=== PATIENT | male | born 1995 | race Caucasian/White ===

== ENCOUNTER 2018-02-02 11:27 | Inpatient (IN) | payer BC, OTHER ==
[~2018-02-02] VITALS: Ht 175.3 cm; Wt 68.3 kg
[~2018-02-02 11:27] MED LIST: ACET-1256; ATOM25CA; DLSYL; FLNIN; GFNSR600; MULT-506
[2018-02-02] MEDS ORDERED: SODIUM CHLORIDE 0.9% 1000ML 1,000 ML IV STA (11:55)
[2018-02-02 12:14] LABS: BASO % 0.2 %; BASO ABS # 0.04 K/uL (0-0.2); EOS % 0.7 %; EOS ABS # 0.13 K/uL (0-0.5); HEMATOCRIT 45.8 % (42-52); HEMOGLOBIN 17.2 g/dL (14.0-18.0); LYMPH % 17.7 %; MEAN CELL VOLUME 83.3 fL (80-100); MEAN CORPUSCULAR HEMOGLOBIN 31.3 pg (25-34); MEAN CORPUSCULAR HGB CONC 37.6 g/dl (32-36); MONO % 5.5 %; MONO ABS # 1.09 K/uL (0.11-0.59); NEUT % 75.4 %; NEUT ABS # 14.87 K/uL (1.4-6.5); PLATELET COUNT 334 K/uL (130-400); RED CELL DISTRIBUTION WIDTH CV 12.5 % (11.5-14.5); RED CELL DISTRIBUTION WIDTH SD 37.9 fL (36.4-46.3); WHITE BLOOD COUNT 19.73 K/uL (4.8-10.8)
[2018-02-02] MEDS ORDERED: NovoLIN-R INSULIN PER UNIT CHARGE IV STA (12:53)
[2018-02-02 12:54] LABS: ALBUMIN 3.9 gm/dl (3.4-5.0); CALCIUM 9.3 mg/dl (8.5-10.1); CREATININE 0.8 mg/dl (0.60-1.40); POTASSIUM 4.1 mmol/L (3.5-5.1); TOTAL PROTEIN 7.9 gm/dl (6.4-8.2)
[2018-02-02] MEDS ORDERED: CEFTRIAXONE SOD INJ 1 GM ADDVIAL IV STA (12:54)
--- NOTE | 2018-02-02 13:34 | DIAGNOSTIC IMAGING REPORT ---
CT SCAN OF THE ABDOMEN AND PELVIS WITHOUT CONTRAST CLINICAL HISTORY: Flank pain hematuria COMPARISON STUDY: No previous studies for comparison. TECHNIQUE: CT scan of the abdomen and pelvis was performed from the lung bases to the proximal femurs. Images are reviewed in the axial, sagittal, and coronal planes. IV contrast was not administered for this examination. A dose lowering technique was utilized adhering to the principles of ALARA. CT DOSE: 532.64 mGy.cm FINDINGS: Lower chest: The heart is normal in size and configuration, without pericardial effusion. The lung bases and pleural spaces are clear. Liver: The unenhanced liver is normal in size, contour, and attenuation. There is no intrahepatic biliary ductal dilatation. Gallbladder: Unremarkable. Spleen: Normal in size and attenuation. Pancreas: Unremarkable. Adrenal glands: Unremarkable. Kidneys: No renal, ureteral, or bladder calculi are visualized. Bowel: There are no transition zones indicate bowel obstruction. The appendix appears normal. There is no acute diverticulitis. Peritoneum: There is no intraperitoneal free air or abdominal ascites. Vasculature: The abdominal aorta is normal in course and caliber. Adenopathy: None. Pelvic viscera: There is mild bladder wall thickening. Correlation with urinalysis is recommended to exclude a cystitis. There is a somewhat prominent urachal remnant. Skeletal structures: No destructive osseous lesions are seen. IMPRESSION: 1. No evidence of bowel obstruction. No evidence of free air 2. No renal, ureteral, or bladder calculi identified 3. Normal appendix. No evidence of acute diverticulitis 4. Mild bladder wall thickening. Correlation with urinalysis is recommended to exclude a cystitis. Electronically signed by: Marco Ventura M.D. 02/02/2018 1:33 PM Dictated Date/Time: 02/02/2018 1:29 PM
--- NOTE | 2018-02-02 14:07 | EMERGENCY ROOM VISIT NOTE ---
History Report prepared by Daniela: Lilia Goode Under the Supervision of: Dr. Familia Tobar M.D. First contact with patient: 11:49 Chief Complaint: URINARY SYMPTOMS Stated Complaint: PEEING BLOOD SEEN DOCTOR WAS SENT HERE Nursing Triage Summary: Blood in urine on monday. States that has resolved but returned this AM, "and it wasnt nice". States he had clots in his urine. Pain in pelvis and penis. Took urine sample to [facility] in [place] and was told he had a large amount of glucose in urine. Had 3 oreos this AM. BSG in ED is 396. Pt states he does not feel like he completely empties his bladder when he voids. Pain and burning with urination. History of Present Illness The patient is a 22 year old male who presents to the Emergency Room with complaints of intermittent urinary symptoms starting this morning. The patient states that he had dysuria and hematuria 3 days ago, but it went away. He states that it was only a small bit of hematuria. He reports that when he woke up this morning he had dysuria and hematuria again. He states that this time it looked like he had passed a clot. He states that his father told him he had to go to the doctors. He reports that he went to the clinic and was sent in because of how high his sugars were. Per the referral, the patient had a large amount of sugar in his urine as well. The patient denies a fever, vomiting, anything discharged in his underwear, feeling more thirsty, urinating more frequently, weakness, weight loss, and a history of diabetes. He notes a family history of diabetes. Source of History: patient Onset: this morning Position: other (global) Quality: other (urinary) Timing: intermittent Associated Symptoms: No fevers, No vomiting, No weakness Note: The patient complains of dysuria and hematuria. The patient denies anything discharged in his underwear, feeling more thirsty, urinating more frequently, and weight loss. Review of Systems See HPI for pertinent positives & negatives. A total of 10 systems reviewed and were otherwise negative. Past Medical & Surgical Medical Problems: (1) Hematuria (2) Hyperglycemia Surgical Problems: (1) Hx of tonsillectomy Family History FH: heart disease FHx: diabetes mellitus Social History Smoking Status: Never Smoker Alcohol Use: none Marital Status: single Housing Status: lives with family Occupation Status: student Current/Historical Medications No Active Prescriptions or Reported Meds Allergies Coded Allergies: No Known Allergies (Unverified , 12/09/06) Physical Exam Vital Signs Date Time Temp Pulse Resp B/P (MAP) Pulse Ox O2 Delivery O2 Flow Rate FiO2 02/02/18 14:18 119 16 137/85 99 Room Air 02/02/18 13:05 103 16 136/92 100 Room Air 02/02/18 11:35 36.7 88 18 134/90 96 Room Air Physical Exam GENERAL: Patient is in no acute distress. HEENT: No acute trauma, normocephalic atraumatic, mucous membranes moist, no nasal congestion, no scleral icterus. NECK: No stridor, no adenopathy, no meningismus, trachea is midline. LUNGS: Clear to auscultation bilaterally, no wheeze, no rhonchi, breath sounds equal. HEART: Without murmurs gallops or rubs, regular rate and rhythm. ABDOMEN: Soft, nontender, bowel sounds positive, no hernias, no peritonitis. GROIN: Circumcised. No penile or scrotal erythema/edema. EXTREMITIES: No cyanosis or edema, full range of motion of all the joints without pain or difficulty, no signs for acute trauma. NEUROLOGIC: Oriented x 3, no acute motor or sensory deficits, no focal weakness. SKIN: No rash, no jaundice, no diaphoresis. Medical Decision & Procedures ER Provider Diagnostic Interpretation: Radiology results as stated below per my review and radiologist interpretation: CT SCAN OF THE ABDOMEN AND PELVIS WITHOUT CONTRAST CLINICAL HISTORY: Flank pain hematuria COMPARISON STUDY: No previous studies for comparison. TECHNIQUE: CT scan of the abdomen and pelvis was performed from the lung bases to the proximal femurs. Images are reviewed in the axial, sagittal, and coronal planes. IV contrast was not administered for this examination. A dose lowering technique was utilized adhering to the principles of ALARA. CT DOSE: 532.64 mGy.cm FINDINGS: Lower chest: The heart is normal in size and configuration, without pericardial effusion. The lung bases and pleural spaces are clear. Liver: The unenhanced liver is normal in size, contour, and attenuation. There is no intrahepatic biliary ductal dilatation. Gallbladder: Unremarkable. Spleen: Normal in size and attenuation. Pancreas: Unremarkable. Adrenal glands: Unremarkable. Kidneys: No renal, ureteral, or bladder calculi are visualized. Bowel: There are no transition zones indicate bowel obstruction. The appendix appears normal. There is no acute diverticulitis. Peritoneum: There is no intraperitoneal free air or abdominal ascites. Vasculature: The abdominal aorta is normal in course and caliber. Adenopathy: None. Pelvic viscera: There is mild bladder wall thickening. Correlation with urinalysis is recommended to exclude a cystitis. There is a somewhat prominent urachal remnant. Skeletal structures: No destructive osseous lesions are seen. IMPRESSION: 1. No evidence of bowel obstruction. No evidence of free air 2. No renal, ureteral, or bladder calculi identified 3. Normal appendix. No evidence of acute diverticulitis 4. Mild bladder wall thickening. Correlation with urinalysis is recommended to exclude a cystitis. Electronically signed by: Marco Ventura M.D. 02/02/2018 1:33 PM Dictated Date/Time: 02/02/2018 1:29 PM Laboratory Results 02/02/18 11:55 Red Blood Count 5.50, Mean Corpuscular Volume 83.3, Mean Corpuscular Hemoglobin 31.3, Mean Corpuscular Hemoglobin Concent 37.6, Mean Platelet Volume 10.0, Neutrophils (%) (Auto) 75.4, Lymphocytes (%) (Auto) 17.7, Monocytes (%) (Auto) 5.5, Eosinophils (%) (Auto) 0.7, Basophils (%) (Auto) 0.2, Neutrophils # (Auto) 14.87, Lymphocytes # (Auto) 3.50, Monocytes # (Auto) 1.09, Eosinophils # (Auto) 0.13, Basophils # (Auto) 0.04 02/02/18 11:55 Test 02/02/18 11:55 02/02/18 12:05 02/02/18 14:19 White Blood Count 19.73 K/uL (4.8-10.8) Red Blood Count 5.50 M/uL (4.7-6.1) Hemoglobin 17.2 g/dL (14.0-18.0) Hematocrit 45.8 % (42-52) Mean Corpuscular Volume 83.3 fL (80-100) Mean Corpuscular Hemoglobin 31.3 pg (25-34) Mean Corpuscular Hemoglobin Concent 37.6 g/dl (32-36) Platelet Count 334 K/uL (130-400) Mean Platelet Volume 10.0 fL (7.4-10.4) Neutrophils (%) (Auto) 75.4 % Lymphocytes (%) (Auto) 17.7 % Monocytes (%) (Auto) 5.5 % Eosinophils (%) (Auto) 0.7 % Basophils (%) (Auto) 0.2 % Neutrophils # (Auto) 14.87 K/uL (1.4-6.5) Lymphocytes # (Auto) 3.50 K/uL (1.2-3.4) Monocytes # (Auto) 1.09 K/uL (0.11-0.59) Eosinophils # (Auto) 0.13 K/uL (0-0.5) Basophils # (Auto) 0.04 K/uL (0-0.2) RDW Standard Deviation 37.9 fL (36.4-46.3) RDW Coefficient of Variation 12.5 % (11.5-14.5) Immature Granulocyte % (Auto) 0.5 % Immature Granulocyte # (Auto) 0.10 K/uL (0.00-0.02) Anion Gap 8.0 mmol/L (3-11) Est Creatinine Clear Calc Drug Dose 142.3 ml/min Estimated GFR () 149.0 Estimated GFR (Non- 128.6 BUN/Creatinine Ratio 10.4 (10-20) Calcium Level 9.3 mg/dl (8.5-10.1) Magnesium Level 1.8 mg/dl (1.8-2.4) Total Bilirubin 0.6 mg/dl (0.2-1) Aspartate Amino Transf (AST/SGOT) 14 U/L (15-37) Alanine Aminotransferase (ALT/SGPT) 30 U/L (12-78) Alkaline Phosphatase 107 U/L (45-117) Total Protein 7.9 gm/dl (6.4-8.2) Albumin 3.9 gm/dl (3.4-5.0) Globulin 4.0 gm/dl (2.5-4.0) Albumin/Globulin Ratio 1.0 (0.9-2) Beta-Hydroxybutyric Acid 6.98 mg/dL (0.2-2.81) Thyroid Stimulating Hormone (TSH) 3.080 uIu/ml (0.300-4.500) Urine Color YELLOW Urine Appearance CLOUDY (CLEAR) Urine pH 6.5 (4.5-7.5) Urine Specific [place] 1.041 (1.000-1.030) Urine Protein 2+ (NEG) Urine Glucose (UA) 3+ (NEG) Urine Ketones TRACE (NEG) Urine Occult Blood 3+ (NEG) Urine Nitrite NEG (NEG) Urine Bilirubin NEG (NEG) Urine Urobilinogen NEG (NEG) Urine Leukocyte Esterase SMALL (NEG) Urine WBC (Auto) >30 /hpf (0-5) Urine RBC (Auto) >30 /hpf (0-4) Urine Hyaline Casts (Auto) 0 /lpf (0-5) Urine Epithelial Cells (Auto) 0-5 /lpf (0-5) Urine Bacteria (Auto) NEG (NEG) Urine Yeast (Auto) (NONE PRSENT) Bedside Glucose 231 mg/dl (70-99) Laboratory results reviewed by me. Medications Administered Medications (Trade) Dose Ordered Sig/[place] Route Start Time Stop Time Status Last Admin Dose Admin Sodium Chloride 1,000 ml @ 999 mls/hr Q1H1M STAT IV 02/02/18 11:55 02/02/18 12:55 DC 02/02/18 12:12 999 MLS/HR Insulin Human Regular (novoLIN-R U-100 PER UNIT) 10 units NOW STAT IV 02/02/18 12:53 02/02/18 12:54 DC 02/02/18 13:38 10 UNITS Ceftriaxone Sodium (Rocephin Inj) 1 gm NOW STAT IV 02/02/18 12:54 02/02/18 12:55 DC 02/02/18 13:40 1 GM ED Course 1150: The patient was evaluated in room C5. A complete history and physical exam was performed. 1155: Ordered NSS 1000 ml @ 999 mls/hr IV. 1253: Ordered Insulin Human Regular 10 units IV. 1254: Ordered Ceftriaxone Sodium 1 gm IV. 1344: I reevaluated the patient and he is doing well. 1351: I discussed the patient's case with Dr. Rashida VILLAR Hospitalist. 1457: Ordered NSS 500 ml @ 999 mls/hr IV. 1517: I spoke to Dr. Estela ONOFRE Hospitalist. The patient will be evaluated for further management. Medical Decision Differential diagnoses include new onset diabetes, dehydration, electrolyte imbalance, anemia, renal failure, UTI, renal or bladder mass. There is a significant leukocytosis at 19,000, this could be consistent with infection. No concerning anemia. Renal panel testing shows a sugar of almost 400. No kidney failure. No hepatitis. The patient appears to be in a euthyroid state. Urinalysis does suggest infection. Urine culture is pending. Abdominal and pelvis CT shows some bladder inflammation consistent with infection, no evidence for ureteral obstruction or for renal stone. The patient received IV saline, he was given IV ceftriaxone. He received IV insulin. His blood sugar is improved. Given the new onset diabetes, given the high sugar, given the UTI and the leukocytosis, a hospital stay was felt warranted. I spoke to the patient and case management. The on-call hospitalist was consulted. Medication Reconcilliation Current Medication List: was personally reviewed by me Blood Pressure Screening Patient's blood pressure: Elevated blood pressure Blood pressure disposition: Referred to PCP Will be further monitored by the hospitalist. Consults Time Called: 1350 Consulting Physician: Dr. Rashida VILLAR Hospitalist Returned Call: 1351 I discussed the patient's case with Dr. Rashida VILLAR [facility]. Additional Consults: Time Called: 1512 Consulted Physician: Dr. Estela ONOFRE Hospitalist Returned Call: 1517 Additional Comments: I spoke to Dr. Estela ONOFRE Hospitalir[facility]. The patient will be evaluated for further management. Impression Primary Impression: Urinary tract infection Additional Impressions: Hyperglycemia Dehydration Leukocytosis Scribe Attestation The scribe's documentation has been prepared under my direction and personally reviewed by me in its entirety. I confirm that the note above accurately reflects all work, treatment, procedures, and medical decision making performed by me. Departure Information Dispostion Being Evaluated By Hospitalist Prescriptions No Active Prescriptions or Reported Meds Referrals Regino Sepulveda M.D. (PCP) Patient Instructions My [facility] Problem Qualifiers
[2018-02-02] MEDS ORDERED: SODIUM CHLORIDE 0.9% 500ML 500 ML IV STA (14:57)
[2018-02-02] MEDS ORDERED: INSULIN GLARGINE SOLOSTAR 100 UNITS/ML 3 ML PEN SC ONE (15:05)
[2018-02-02] MEDS ORDERED: MAGNESIUM HYDROXIDE SUSP 30 ML UDC PO PRN (15:15)
[2018-02-02] MEDS ORDERED: ONDANSETRON INJ 2 MG/ML 2 ML VIAL IV PRN (15:15)
[2018-02-02] MEDS ORDERED: ALUMINUM/MAGNESIUM/SIMETH (MAALOX MAX) 30 ML UDC PO PRN (15:15)
[2018-02-02] MEDS ORDERED: SODIUM CHLORIDE 0.9% 1000ML 1,000 ML IV ONE (15:15)
[2018-02-02] MEDS ORDERED: POLYETHYLENE (MIRALAX) 17 GM PACK PO PRN (15:15)
[2018-02-02] MEDS ORDERED: ACETAMINOPHEN 325 MG TAB PO PRN (15:15)
--- NOTE | 2018-02-02 15:22 | History and Physical ---
History & Physical Date & Time of Service: February 02, 2018 at 15:13 Chief Complaint: Peeing Blood Seen Doctor Was Sent Here Primary Care Physician: Marisa Villafuerte D.O. History of Present Illness Source: patient, family, clinic records, hospital records Patient is a pleasant 22 y/o male, with no past medical history, who presented to the ED because of hematuria. Hematuria started a few days ago, but then resolved. This AM, he passed a large clot and had dysuria. He was seen outpatient and told to come to ED because of UTI and elevated sugars. In ED, patient's sugars were 396- no history of DM. Both mother and father have DM. Per father, patient has a very bad diet and eats mostly sugary things. Patient denies any fever, chills, sweats, lightheadedness, dizziness, vision changes, CP , palpitations, edema, SOB, wheezing, cough, abdominal pain, nausea, vomiting, diarrhea, melena, numbness/tingling, weakness, muscle/joint pain, anxiety/ depression, active bleeding, or new skin discoloration/changes. Past Medical/Surgical History Surgical Problems: (1) Hx of tonsillectomy Family History FH: heart disease FHx: diabetes mellitus Social History Smoking Status: Never Smoker Marital Status: single Housing status: lives with family Occupational Status: student Allergies Coded Allergies: No Known Allergies (Unverified Allergy, Mild, 12/09/06) Uncoded Allergies: NKA (Allergy, Unknown, 11/02/03) Home Medications No Active Prescriptions or Reported Meds Physical Exam Vital Signs Date Time Temp Pulse Resp B/P (MAP) Pulse Ox O2 Delivery O2 Flow Rate FiO2 02/02/18 14:18 119 16 137/85 99 Room Air 02/02/18 13:05 103 16 136/92 100 Room Air 02/02/18 11:35 36.7 88 18 134/90 96 Room Air General Appearance: no apparent distress Head: normocephalic, atraumatic Eyes: normal inspection, PERRL ENT: hearing grossly normal Neck: supple Respiratory/Chest: lungs clear, normal breath sounds, no respiratory distress, no accessory muscle use Cardiovascular: regular rate, rhythm Abdomen/GI: normal bowel sounds, non tender, soft Extremities/Musculoskelatal: no calf tenderness, no pedal edema Neurologic/Psych: alert, normal mood/affect, normal reflexes, oriented x 3 Skin: normal color, warm/dry, no rash Diagnostics Laboratory Results Results Past 24 Hours Test 02/02/18 11:42 02/02/18 11:55 02/02/18 12:05 02/02/18 14:19 Range/Units Bedside Glucose 396 231 70-99 mg/dl White Blood Count 19.73 4.8-10.8 K/uL Red Blood Count 5.50 4.7-6.1 M/uL Hemoglobin 17.2 14.0-18.0 g/dL Hematocrit 45.8 42-52 % Mean Corpuscular Volume 83.3 80-100 fL Mean Corpuscular Hemoglobin 31.3 25-34 pg Mean Corpuscular Hemoglobin Concent 37.6 32-36 g/dl Platelet Count 334 130-400 K/uL Mean Platelet Volume 10.0 7.4-10.4 fL Neutrophils (%) (Auto) 75.4 % Lymphocytes (%) (Auto) 17.7 % Monocytes (%) (Auto) 5.5 % Eosinophils (%) (Auto) 0.7 % Basophils (%) (Auto) 0.2 % Neutrophils # (Auto) 14.87 1.4-6.5 K/uL Lymphocytes # (Auto) 3.50 1.2-3.4 K/uL Monocytes # (Auto) 1.09 0.11-0.59 K/uL Eosinophils # (Auto) 0.13 0-0.5 K/uL Basophils # (Auto) 0.04 0-0.2 K/uL RDW Standard Deviation 37.9 36.4-46.3 fL RDW Coefficient of Variation 12.5 11.5-14.5 % Immature Granulocyte % (Auto) 0.5 % Immature Granulocyte # (Auto) 0.10 0.00-0.02 K/uL Sodium Level 133 136-145 mmol/L Potassium Level 4.1 3.5-5.1 mmol/L Chloride Level 99 98-107 mmol/L Carbon Dioxide Level 26 21-32 mmol/L Anion Gap 8.0 3-11 mmol/L Blood Urea Nitrogen 8 7-18 mg/dl Creatinine 0.80 0.60-1.40 mg/dl Est Creatinine Clear Calc Drug Dose 142.3 ml/min Estimated GFR () 149.0 Estimated GFR (Non- 128.6 BUN/Creatinine Ratio 10.4 10-20 Random Glucose 374 70-99 mg/dl Calcium Level 9.3 8.5-10.1 mg/dl Magnesium Level 1.8 1.8-2.4 mg/dl Total Bilirubin 0.6 0.2-1 mg/dl Aspartate Amino Transf (AST/SGOT) 14 15-37 U/L Alanine Aminotransferase (ALT/SGPT) 30 12-78 U/L Alkaline Phosphatase 107 45-117 U/L Total Protein 7.9 6.4-8.2 gm/dl Albumin 3.9 3.4-5.0 gm/dl Globulin 4.0 2.5-4.0 gm/dl Albumin/Globulin Ratio 1.0 0.9-2 Beta-Hydroxybutyric Acid 6.98 0.2-2.81 mg/dL Thyroid Stimulating Hormone (TSH) 3.080 0.300-4.500 uIu/ml Urine Color YELLOW Urine Appearance CLOUDY CLEAR Urine pH 6.5 4.5-7.5 Urine Specific [place] 1.041 1.000-1.030 Urine Protein 2+ NEG Urine Glucose (UA) 3+ NEG Urine Ketones TRACE NEG Urine Occult Blood 3+ NEG Urine Nitrite NEG NEG Urine Bilirubin NEG NEG Urine Urobilinogen NEG NEG Urine Leukocyte Esterase SMALL NEG Urine WBC (Auto) >30 0-5 /hpf Urine RBC (Auto) >30 0-4 /hpf Urine Hyaline Casts (Auto) 0 0-5 /lpf Urine Epithelial Cells (Auto) 0-5 0-5 /lpf Urine Bacteria (Auto) NEG NEG Urine Yeast (Auto) NONE PRSENT Microbiology Results 02/02/18 Urine Culture, Received Pending Diagnostic Radiology CT SCAN OF THE ABDOMEN AND PELVIS WITHOUT CONTRAST CLINICAL HISTORY: Flank pain hematuria COMPARISON STUDY: No previous studies for comparison. TECHNIQUE: CT scan of the abdomen and pelvis was performed from the lung bases to the proximal femurs. Images are reviewed in the axial, sagittal, and coronal planes. IV contrast was not administered for this examination. A dose lowering technique was utilized adhering to the principles of ALARA. CT DOSE: 532.64 mGy.cm FINDINGS: Lower chest: The heart is normal in size and configuration, without pericardial effusion. The lung bases and pleural spaces are clear. Liver: The unenhanced liver is normal in size, contour, and attenuation. There is no intrahepatic biliary ductal dilatation. Gallbladder: Unremarkable. Spleen: Normal in size and attenuation. Pancreas: Unremarkable. Adrenal glands: Unremarkable. Kidneys: No renal, ureteral, or bladder calculi are visualized. Bowel: There are no transition zones indicate bowel obstruction. The appendix appears normal. There is no acute diverticulitis. Peritoneum: There is no intraperitoneal free air or abdominal ascites. Vasculature: The abdominal aorta is normal in course and caliber. Adenopathy: None. Pelvic viscera: There is mild bladder wall thickening. Correlation with urinalysis is recommended to exclude a cystitis. There is a somewhat prominent urachal remnant. Skeletal structures: No destructive osseous lesions are seen. IMPRESSION: 1. No evidence of bowel obstruction. No evidence of free air 2. No renal, ureteral, or bladder calculi identified 3. Normal appendix. No evidence of acute diverticulitis 4. Mild bladder wall thickening. Correlation with urinalysis is recommended to exclude a cystitis. Electronically signed by: Marco Ventura M.D. 02/02/2018 1:33 PM Dictated Date/Time: 02/02/2018 1:29 PM The status of this report is Signed. Draft = Not yet reviewed or approved by Radiologist. Signed = Reviewed and approved by Radiologist Impression Assessment and Plan Patient is a pleasant 22 y/o male, with no past medical history, who presented to the ED because of hematuria. UTI POA: IV Rocephin pending UCx Hyperglycemia: - Given 10 u Novolin R with improvement in sugars from 396 to 231 - Lantus 6 u SQ now, then 6 u BID - BSG ACHS and ISS - Check hgbA1c - paraeducator consulted Leukocytosis, secondary to UTI/hyperglycemia- does not appear septic: Follow CBC and treatment as above DVT prophylaxis: TEDs/SCDs, ambulation Code status: LEVEL I, FULL Dispo: From home, lives w/ parents- no discharge needs anticipated Resuscitation Status LEVEL I, FULL VTE Prophylaxis Will order VTE Prophylaxis: Yes
[2018-02-02 16:16] VITALS: BMI 22.2
[2018-02-02 16:25] VITALS: BP 144/93; PULSE 110; TEMP 36.8; O2SAT 98; Ht 175.3 cm; Wt 68.3 kg
[2018-02-02] MEDS ORDERED: SODIUM CHLORIDE 0.9% 1000ML 1,000 ML IV SCH (16:43)
[2018-02-02] MEDS ORDERED: NURSING VERBAL MED ORDER ONE (17:00)
[2018-02-02] MEDS: INSULIN ASPART 100 UNITS/ML 3 ML PEN SC SCH ×2 (17:18→20:56)
--- NOTE | 2018-02-02 19:11 | DIAGNOSTIC IMAGING REPORT ---
RENAL ULTRASOUND HISTORY: hematuria COMPARISON: Abdomen and pelvis CT 02/02/2018. FINDINGS: Right kidney: 13 cm. No hydronephrosis. Normal corticomedullary differentiation and cortical thickness. Left kidney: 12.6 cm. No hydronephrosis. Normal corticomedullary differentiation and cortical thickness. Bladder: Moderate irregular bladder wall thickening. The left side the bladder wall appears to demonstrate nodular thickening. There is also debris within the bladder lumen. IMPRESSION: 1. Normal kidneys. 2. Moderate irregular bladder wall thickening. Some of this could related to underdistention. Correlation with urinalysis is suggested to evaluate for a cystitis. There may also be a nodular component to the thickening along the left side the bladder wall. Therefore, consider follow-up ultrasound or cystoscopy to ensure resolution and exclude the less likely possibility of a bladder wall lesion. Electronically signed by: Amilcar Ballard M.D. 02/02/2018 7:10 PM Dictated Date/Time: 02/02/2018 7:05 PM
[2018-02-02] MEDS ORDERED: PNEUMOCOCCAL POLYSACCHARIDES 25 MCG/0.5 ML VIAL/SYR IM. ONE (20:00)
[2018-02-02] MEDS ORDERED: PNEUMOCOCCAL ADMINISTRATION CHARGE ONE (20:00)
[2018-02-02] MEDS: INSULIN GLARGINE SOLOSTAR 100 UNITS/ML 3 ML PEN SC SCH (20:57)
[2018-02-02 23:27] VITALS: BP 144/98; PULSE 100; TEMP 36.6; O2SAT 98
[2018-02-03 06:27] LABS: HEMATOCRIT 44.6 % (42-52); HEMOGLOBIN 16.3 g/dL (14.0-18.0); MEAN CELL VOLUME 84.8 fL (80-100); MEAN CORPUSCULAR HGB CONC 36.5 g/dl (32-36); MEAN PLATELET VOLUME 9.8 fL (7.4-10.4); PLATELET COUNT 325 K/uL (130-400); RED CELL DISTRIBUTION WIDTH CV 12.7 % (11.5-14.5); WHITE BLOOD COUNT 11.18 K/uL (4.8-10.8)
[2018-02-03 06:32] LABS: HEMOGLOBIN A1C 11.3 % (4.5-5.6)
[2018-02-03 06:44] LABS: BLOOD UREA NITROGEN 6 mg/dl (7-18); CALCIUM 8.8 mg/dl (8.5-10.1); CARBON DIOXIDE 26 mmol/L (21-32); CREATININE 0.68 mg/dl (0.60-1.40); GLUCOSE 286 mg/dl (70-99); POTASSIUM 4.3 mmol/L (3.5-5.1); SODIUM 133 mmol/L (136-145)
[2018-02-03 07:20] VITALS: BP 133/93; PULSE 99; TEMP 36.7; O2SAT 99
[2018-02-03] MEDS: INSULIN ASPART 100 UNITS/ML 3 ML PEN SC SCH ×4 (08:18→21:47)
[2018-02-03] MEDS: INSULIN GLARGINE SOLOSTAR 100 UNITS/ML 3 ML PEN SC SCH ×2 (08:18→21:48)
[2018-02-03] MEDS ORDERED: LANTUS PER UNIT CHARGE SQ SCH (09:15)
[2018-02-03] MEDS ORDERED: CEFTRIAXONE SOD INJ 1 GM in DEXTROSE 5% ADD-VANTAGE 50ML 50 ML IV SCH (14:00)
[2018-02-03 14:40] VITALS: BP 121/84; PULSE 75; TEMP 36.7; O2SAT 97
--- NOTE | 2018-02-03 16:01 | Progress Note ---
Subjective Date of Service: February 03, 2018. Subjective Pt evaluation today including: conversation w/ patient, conversation w/ family , physical exam, chart review, lab review, review of studies, conversation w/ cloud consultant, review of inpatient medication list Sitting up in chair, up and walk, no more hematuria, no fever chills, denies any other complaints Problem List Medical Problems: (1) Dehydration Status: Acute (2) Leukocytosis Status: Acute (3) Urinary tract infection Status: Acute Review of Systems Constitutional: + weakness, + fatigue, No fever, No chills, No sweats, No weight loss, No problem reported Eyes: No worsening of vision, No eye pain, No redness, No discharge, No diplopia ENT: No hearing loss, No unusual epistaxis, No nasal symptoms, No sore throat, No tinnitus, No dental problems, No trouble swallowing Respiratory: No cough, No sputum, No wheezing, No shortness of breath, No dyspnea on exertion, No dyspnea at rest, No hemoptysis Cardiac: No chest pain, No orthopnea, No PND, No edema, No claudication, No palpitations Abdomen: No pain, No nausea, No vomiting, No diarrhea, No constipation Musculoskeletal: No joint pain, No muscle pain, No swelling, No calf pain Male : No dysuria, No urinary frequency, No incontinence, No nocturia more than once/night, No slowing stream, No hematuria Neurologic: No memory loss, No paralysis, No weakness, No numbness/tingling, No vertigo, No balance problems Psychiatric: No depression symptoms, No anhedonism, No anxiety, No insomnia, No substance abuse Heme: No abnormal bleeding/bruising, No clotting problems, No swollen lymph nodes, No night sweats Endo: No fatigue, No excessive thirst, No excessive urination Skin: No rash, No itch, No new/changing skin lesions, No color change, No bleeding Objective Vital Signs Date Time Temp Pulse Resp B/P (MAP) Pulse Ox O2 Delivery O2 Flow Rate FiO2 02/03/18 14:40 36.7 75 18 121/84 (96) 97 Room Air 02/03/18 08:00 Room Air 02/03/18 07:20 36.7 99 18 133/93 (106) 99 Room Air 02/03/18 00:00 Room Air 02/02/18 23:27 36.6 100 16 144/98 (113) 98 Room Air 02/02/18 20:00 Room Air 02/02/18 16:25 36.8 110 18 144/93 98 Room Air 02/02/18 16:11 116 18 128/95 100 Physical Exam General Appearance: WD/WN, no apparent distress Eyes: normal inspection, PERRL, EOMI, sclerae normal ENT: normal ENT inspection, hearing grossly normal, pharynx normal Neck: supple, no adenopathy, thyroid normal, no JVD, no carotid bruits, trachea midline Respiratory/Chest: chest non-tender, normal breath sounds, no respiratory distress, no accessory muscle use, + decreased breath sounds Cardiovascular: regular rate, rhythm, no edema, no gallop, no JVD, no murmur Abdomen: normal bowel sounds, non tender, soft, no organomegaly, no pulsatile mass Extremities: normal range of motion, non-tender, normal inspection, no pedal edema, no calf tenderness, normal capillary refill, pelvis stable Neurologic/Psychiatric: 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 as tested, no motor/sensory deficits, alert, normal mood/affect, oriented x 3 Skin: normal color, warm/dry, no rash Lymphatic: no adenopathy Laboratory Results Last 24 Hours Test 02/02/18 16:34 02/02/18 17:08 02/02/18 20:20 02/03/18 01:36 Bedside Glucose 230 mg/dl 227 mg/dl 224 mg/dl Erythrocyte Sedimentation Rate 16 mm/hr C-Reactive Protein 2.16 mg/dl Procalcitonin < 0.05 ng/ml Test 02/03/18 06:08 02/03/18 07:27 02/03/18 11:45 White Blood Count 11.18 K/uL Red Blood Count 5.26 M/uL Hemoglobin 16.3 g/dL Hematocrit 44.6 % Mean Corpuscular Volume 84.8 fL Mean Corpuscular Hemoglobin 31.0 pg Mean Corpuscular Hemoglobin Concent 36.5 g/dl RDW Standard Deviation 39.0 fL RDW Coefficient of Variation 12.7 % Platelet Count 325 K/uL Mean Platelet Volume 9.8 fL Sodium Level 133 mmol/L Potassium Level 4.3 mmol/L Chloride Level 103 mmol/L Carbon Dioxide Level 26 mmol/L Anion Gap 4.0 mmol/L Blood Urea Nitrogen 6 mg/dl Creatinine 0.68 mg/dl Est Creatinine Clear Calc Drug Dose 167.4 ml/min Estimated GFR () > 150.0 Estimated GFR (Non- 137.5 BUN/Creatinine Ratio 9.0 Random Glucose 286 mg/dl Calcium Level 8.8 mg/dl Bedside Glucose 275 mg/dl 310 mg/dl Assessment and Plan 22 y/o male with admitted on February 02, 2018 because of hematuria and possible mild sepsis, Hematuria with UTI POA possible mild sepsis: Hematuria resolved, Renal and bladder ultrasound results in below, 1. Normal kidneys. 2. Moderate irregular bladder wall thickening. Some of this could related to underdistention. Correlation with urinalysis is suggested to evaluate for a cystitis. There may also be a nodular component to the thickening along the left side the bladder wall. Therefore, consider follow-up ultrasound or cystoscopy to ensure resolution and exclude the less likely possibility of a bladder wall lesion. 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 Quan PCP Continued [facility] stay due to: multiple IV medications needed Discharge planning: home
[2018-02-03] MEDS ORDERED: INSULIN GLARGINE SOLOSTAR 100 UNITS/ML 3 ML PEN SC SCH (21:00)
[2018-02-03 23:34] VITALS: BP 127/78; PULSE 89; TEMP 36.5; O2SAT 96
[2018-02-04 06:38] LABS: HEMATOCRIT 44.4 % (42-52); HEMOGLOBIN 16.6 g/dL (14.0-18.0); MEAN CELL VOLUME 84.1 fL (80-100); MEAN CORPUSCULAR HEMOGLOBIN 31.4 pg (25-34); MEAN CORPUSCULAR HGB CONC 37.4 g/dl (32-36); MEAN PLATELET VOLUME 9.9 fL (7.4-10.4); PLATELET COUNT 343 K/uL (130-400); RED CELL DISTRIBUTION WIDTH CV 12.7 % (11.5-14.5); RED CELL DISTRIBUTION WIDTH SD 38.4 fL (36.4-46.3); WHITE BLOOD COUNT 12.59 K/uL (4.8-10.8)
[2018-02-04 07:02] VITALS: BP 129/76; PULSE 93; TEMP 36.6; O2SAT 98
[2018-02-04 07:06] LABS: BLOOD UREA NITROGEN 10 mg/dl (7-18); CALCIUM 9.4 mg/dl (8.5-10.1); CARBON DIOXIDE 24 mmol/L (21-32); CREATININE 0.63 mg/dl (0.60-1.40); GLUCOSE 278 mg/dl (70-99); POTASSIUM 4.1 mmol/L (3.5-5.1); SODIUM 136 mmol/L (136-145)
[2018-02-04 08:00] VITALS: O2SAT 98
[2018-02-04] MEDS: INSULIN GLARGINE SOLOSTAR 100 UNITS/ML 3 ML PEN SC SCH (08:18)
[2018-02-04] MEDS: INSULIN ASPART 100 UNITS/ML 3 ML PEN SC SCH (08:18)
[2018-02-04] MEDS ORDERED: INSDGIPEN SC (09:08)
[2018-02-04] MEDS ORDERED: KFL500 PO (09:08)
--- NOTE | 2018-02-04 09:08 | Discharge Instructions ---
Discharge Instructions Date of Service February 04, 2018. Admission Reason for Admission: Hematuria; Hyperglycemia Discharge Discharge Diagnosis / Problem: you have Hematuria with UTI Discharge Goals Goal(s): Decrease discomfort, Improve function, Increase independence, Improve disease control, Improve nutritional status, Learn about illness, Diagnostic testing, Therapeutic intervention, Screening, Prevent Disease Progression, Specific goals Activity Recommendations Activity Limitations: resume your previous activity . 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 Noy james, referral to golf player assistant if need I am giving you Lantus FlexPen 12 unit bid to home, I am also giving you NOvolog for sliding scale: use as instructed per sliding scale BG<150 no coverage, BG 151 to 180: 2 unit BG 181 to 200: 4 unit BG 201 to 220: 5 unit BG 221 to 240: 6 unit BG 241 to 260: 7 unit BG 261 to 280: 8 unit BG 281 to 300: 9 unit BG 301 to 320: 10 unit BG 321 to 340: 12 unit BG 341 to 360: 14 unit BG 361 to 380: 16 unit BG >380: 18 unit, and call PCP - you need to follow up with your primary care physician jacob - take medication as instructed, never overdose or any misuse, or take with alcohol, because misuse of medicine may cause organ damage or , call me , or your primary care physician if have questions of discharge medicaitons. - call your primary care physician, or go to local emergency room if has any fever/chill, chest pain, shortness of breathing, nausea/vomiting/abdominal pain , facial droop/slurry speech/local weakness, or if has any questions. - fall precaution - diet as instructed - you need to follow up with your subspecialist, such as Dr. Whitten, you will get a phone call from their service for the appointment, but, you need to call if no body call you in 2-3 days. - you should understand that it is important to follow up the above instruction , and "not following the above instruction" may cause delayed or missed care of your medical conditions which may cause permanent organ damage and even . Current Hospital Diet Patient's current hospital diet: Diabetes Type 1 Diet Discharge Diet Recommended Diet: Diabetes Type 1 Diet Pending Studies Studies pending at discharge: no Laboratory Results Hemoglobin A1c Test 02/02/18 11:55 Range/Units Estimated Average Glucose 278 mg/dl Hemoglobin A1c 11.3 H 4.5-5.6 % Medical Emergencies . Who to Call and When: Medical Emergencies: If at any time you feel your situation is an emergency, please call 911 immediately. . Non-Emergent Contact Non-Emergency issues call your: Primary Care Provider, Urologist . . "Provider Documentation" section prepared by Héctor Obrien. .
--- NOTE | 2018-02-04 11:00 | Urology Consultation ---
History General Date of Service: February 04, 2018. Chief Complaint: Gross hematuria. Primary Care Physician: Marisa Villafuerte D.O. Pt seen a urologist before?: No History of Present Illness Patient is a 22-year-old male who is here after being admitted for an episode of gross hematuria, currently resolved per the patient. His inpatient chart is reviewed, no outpatient records are available. He reports that this began 5 days ago with a few drops of blood in the urine which then resolved. Approximately 2-3 days ago the problem recurred this time persisted for longer. He noted some mild lower abdominal discomfort associated with this but denies any fevers, chills, nausea, vomiting or other difficulties. Recurrent hematuria was present at the time of the bowel movement. He denies any childhood history of urinary tract infection or gross hematuria, and he denies any difficulties with previous urologic or voiding issues. Patient's father is also contacted on the phone today and care is discussed on speakerphone. 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 Patient currently feels improved and is voiding well. CT scan images reviewed with the patient today in the room. Urology consultation is sought out to assist with the patient's care. Urine culture is noted to be within normal limits. Incidentally, the patient has a tentative diagnosis of type 1 diabetes as of this past week. [place]. Imaging Imaging: CT Laboratory Last 24 Hours Test 02/03/18 11:45 02/03/18 16:27 02/03/18 20:14 02/04/18 06:09 Bedside Glucose 310 mg/dl 224 mg/dl 228 mg/dl White Blood Count 12.59 K/uL Red Blood Count 5.28 M/uL Hemoglobin 16.6 g/dL Hematocrit 44.4 % Mean Corpuscular Volume 84.1 fL Mean Corpuscular Hemoglobin 31.4 pg Mean Corpuscular Hemoglobin Concent 37.4 g/dl RDW Standard Deviation 38.4 fL RDW Coefficient of Variation 12.7 % Platelet Count 343 K/uL Mean Platelet Volume 9.9 fL Sodium Level 136 mmol/L Potassium Level 4.1 mmol/L Chloride Level 103 mmol/L Carbon Dioxide Level 24 mmol/L Anion Gap 9.0 mmol/L Blood Urea Nitrogen 10 mg/dl Creatinine 0.63 mg/dl Est Creatinine Clear Calc Drug Dose 180.7 ml/min Estimated GFR () > 150.0 Estimated GFR (Non- 141.9 BUN/Creatinine Ratio 16.5 Random Glucose 278 mg/dl Calcium Level 9.4 mg/dl Test 02/04/18 07:26 Bedside Glucose 280 mg/dl Problem List Medical Problems: (1) Dehydration Status: Acute (2) Leukocytosis Status: Acute (3) Urinary tract infection Status: Acute Past History diabetes (type 1) Past Surgical History: tonsillectomy Family History FH: heart disease FHx: diabetes mellitus Strong FHx DM. Social History Hx Tobacco Use In Past Year?: No Smoking: non-smoker Marital status: single Housing status: lives with family Occupation status: student History of MDRO No Allergies Coded Allergies: No Known Allergies (Unverified , 12/09/06) Medications Home Medications: Home Meds and Scripts Medications Dose Route/Sig Max Daily Dose Days Date Category Dose Instructions Lantus Solostar (Insulin Glargine) 100 Unit/Ml Inj 12 Units SC BID 30 02/04/18 Rx adjust dose with pcp call pcp if BG> 350 or BG<70 Cephalexin (Cephalexin Monohydrate) 500 Mg Cap 500 Mg PO QID 5 02/04/18 Rx Inpatient Medications: Current Inpatient Medications Medications (Trade) Dose Ordered Sig/P[place]on Route Start Time Stop Time Status Last Admin Dose Admin Acetaminophen (Tylenol Tab) 650 mg Q4H PRN PO 02/02/18 15:15 03/04/18 15:14 Al Hydrox/Mg Hydrox/Simethicone (Maalox Max Susp) 15 ml Q4H PRN PO 02/02/18 15:15 03/04/18 15:14 Magnesium Hydroxide (Milk Of Magnesia Susp) 30 ml Q6H PRN PO 02/02/18 15:15 03/04/18 15:14 Polyethylene (Miralax Powder Packet) 17 gm DAILY PRN PO 02/02/18 15:15 03/04/18 15:14 Ondansetron HCl (Zofran Inj) 4 mg Q6H PRN IV 02/02/18 15:15 03/04/18 15:14 Insulin Aspart (novoLOG ASPART) SLIDING SCALE G... ACHS SC 02/02/18 16:00 03/04/18 15:59 02/04/18 08:18 11 UNITS Insulin Glargine (Lantus Solostar Pen) 12 units BID SC 02/04/18 21:00 03/05/18 20:59 Cephalexin Monohydrate (Keflex Cap) 500 mg QID PO 02/04/18 13:00 02/13/18 12:59 Review of Systems Review of Systems Constitutional: No fever, No chills Eyes: No double vision, No eye pain Neurological: No passing out, No numbness/tingling Endocrine: No excessive thirst, No tired/sluggish Gastrointestinal: No abdominal pain, No nausea, No vomiting Cardiovascular: No angina, No irregular heartbeat Respiratory: No coughing up blood Skin: No boils, No dry skin Musculoskeletal: No back pain Blood / Lymphatic: No swollen glands Ears / Nose / Throat: No hearing loss Psychologic / Mental: No nervous, No trouble remembering Male : + see HPI, + blood in urine Physical Exam Vital Signs: Vital Signs Past 12 Hours Date Time Temp Pulse Resp B/P (MAP) Pulse Ox O2 Delivery O2 Flow Rate FiO2 02/04/18 07:02 36.6 93 16 129/76 (93) 98 Room Air 02/04/18 00:00 Room Air 02/03/18 23:34 36.5 89 18 127/78 (94) 96 Room Air Physical Exam: General Appearance: no apparent distress, + thin ENT: normal ENT inspection Neck: supple, no adenopathy Respiratory/Chest: no respiratory distress, no accessory muscle use Cardiovascular: no JVD Gastrointestinal: Abdomen: normal abdomen Bladder: normal bladder Renal: normal renal Hernia: absent hernia Liver: normal liver Spleen: normal spleen Extremities: non-tender Neurologic/Psychiatric: alert, oriented x 3 Skin: normal color Lymphatic: no adenopathy Assessment & Plan Assessment & Plan A/P 22-year-old male with resolved gross hematuria. Embryology and pathophysiology of the urachal remnant is discussed. Should the patient indeed have a bleeding urachal remnant at his age, surgical extirpation would likely be needed in the long run. The possibility of repeat bleeding, infection and possible aggressive malignancy in the future is reviewed. Will complete the patient's hematuria workup with a CT scan of the abdomen and pelvis with IV and p.o. contrast as well as a cystoscopy in our office. Worrisome signs and symptoms which should prompt return to the emergency room are reviewed. Our contact information is provided should the patient have any questions or difficulties in the meanwhile. Urine culture negative and I do not suspect a urinary tract infection - extended antibiotic should not be required. Will arrange for outpatient testing. Thank you for allowing us to participate in this patient's acute care. Please contact our service with any questions or concerns.
[2018-02-04] MEDS ORDERED: [UNRECOGNIZED DRUG - CODE] SQ (12:30)
[2018-02-04] MEDS ORDERED: NVLGI/PEN SQ (12:30)
[2018-02-04] MEDS ORDERED: [UNRECOGNIZED DRUG - CODE] SQ. (12:30)
[2018-02-04] MEDS ORDERED: [UNRECOGNIZED DRUG - OTHER] (12:30)
[2018-02-04] MEDS ORDERED: CEPHALEXIN MONOHYDRATE 500 MG CAP PO SCH (13:00)
[2018-02-04 13:10] VITALS: BP 129/76; PULSE 93; TEMP 36.6; O2SAT 98
--- NOTE | 2018-02-04 15:48 | Discharge Summary ---
Discharge Summary Date of Service February 04, 2018. Discharge Summary Admission Date: February 02, 2018 at 15:13 Discharge Date: February 04, 2018 Discharge Disposition: Home Principal Diagnosis: Hematuria with UTI Problems/Secondary Diagnoses: New diagnosed uncontrolled diabetic A1c 11 with hyperglycemia: Procedures: No Consultations: Urologist Medication Reconciliation New Medications: Insulin Aspart (Novolog Flexpen) 100 Units/Ml Inj 1 UNIT SQ ACHS for 30 Days use as directed per insulin sling scale Insulin Pen Needle (Novofine 31MG9FN) 1 Mis Mis EA SQ ACHS, #100 Lancets (Solo V2 Twist Lancets) 1 Mis Mis EA SQ. ACHS, #1 [needle] () Cephalexin Monohydrate (Cephalexin) 500 Mg Cap 500 MG PO QID for 5 Days, #20 CAP Insulin Glargine (Lantus Solostar) 100 Unit/Ml Inj 12 UNITS SC BID for 30 Days adjust dose with pcp call pcp if BG> 350 or BG<70 Discharge Exam Doing well, no complaints, tolerate diet, denies fever and chill, denied dysuria urgency or frequency no more hematuria Review of Systems: Constitutional: No fever, No chills, No sweats, No weight loss, No weakness , No fatigue, No problem reported Eyes: No worsening of vision, No eye pain, No redness, No discharge, No diplopia, No problem reported Respiratory: No cough, No sputum, No wheezing, No shortness of breath, No dyspnea on exertion, No dyspnea at rest, No hemoptysis, No problem reported Abdomen: No pain, No nausea, No vomiting, No diarrhea, No constipation, No GI bleeding, No problem reported Genitourinary - Male: No hematuria, No dysuria, No urinary frequency, No urinary urgency, No urinary hesitancy, No urinary retention, No urinary incontinence, No penile discharge, No lesions, No impotence, No problem reported Psychiatric: No depression symptoms, No anhedonism, No anxiety, No insomnia , No substance abuse, No problem reported Endocrine: No fatigue, No excessive thirst, No excessive urination, No problem reported Hematologic / Lymphatic: No abnormal bleeding/bruising, No clotting problems , No swollen lymph nodes, No night sweats, No problem reported Physical Exam: General Appearance: WD/WN, no apparent distress Eyes: normal inspection, PERRL, EOMI ENT: normal ENT inspection, hearing grossly normal, TMs normal Neck: supple, no adenopathy, thyroid normal Respiratory/Chest: chest non-tender, lungs clear, normal breath sounds Cardiovascular: regular rate, rhythm, no edema, no gallop, no JVD, no murmur Abdomen / GI: normal bowel sounds, non tender, soft, no organomegaly, no pulsatile mass Extremities: normal inspection, no calf tenderness, normal capillary refill , no pedal edema Neurologic/Psychiatric: 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 Normal kidneys. 2. Moderate irregular bladder wall thickening. Some of this could related to underdistention. Correlation with urinalysis is suggested to evaluate for a cystitis. There may also be a nodular component to the thickening along the left side the bladder wall. Therefore, consider follow-up ultrasound or cystoscopy to ensure resolution and exclude the less likely possibility of a bladder wall lesion. 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 before meals and at bedtime Patient need to follow-up with Dr. Quan PCP Instructions / Follow-Up you have Hematuria with UTI Hematuria resolved, you need to continue oral antibiotics you have some thickening along the left side the bladder wall, you need to be seen and follow up with urologist as instructed you have New diagnosed uncontrolled diabetic A1c 11 with hyperglycemia: tobacco educator outpatient ED, you was given glucometers, , you was taught of insulin inject, you need to be seen by Dr. Noy james, referral to geology associate if need I am giving you Lantus FlexPen 12 unit bid to home, I am also giving you NOvolog for sliding scale: use as instructed per sliding scale BG<150 no coverage, BG 151 to 180: 2 unit BG 181 to 200: 4 unit BG 201 to 220: 5 unit BG 221 to 240: 6 unit BG 241 to 260: 7 unit BG 261 to 280: 8 unit BG 281 to 300: 9 unit BG 301 to 320: 10 unit BG 321 to 340: 12 unit BG 341 to 360: 14 unit BG 361 to 380: 16 unit BG >380: 18 unit, and call PCP - you need to follow up with your primary care physician jacob - take medication as instructed, never overdose or any misuse, or take with alcohol, because misuse of medicine may cause organ damage or , call me , or your primary care physician if have questions of discharge medicaitons. - call your primary care physician, or go to local emergency room if has any fever/chill, chest pain, shortness of breathing, nausea/vomiting/abdominal pain , facial droop/slurry speech/local weakness, or if has any questions. - fall precaution - diet as instructed - you need to follow up with your subspecialist, such as Dr. Whitten, you will get a phone call from their service for the appointment, but, you need to call if no body call you in 2-3 days. - you should understand that it is important to follow up the above instruction , and "not following the above instruction" may cause delayed or missed care of your medical conditions which may cause permanent organ damage and even . Total Time Spent: Greater than 30 minutes This includes examination of the patient, discharge planning, medication reconciliation, and communication with other providers. Discharge Instructions Please refer to the electronic Patient Visit Report (Discharge Instructions) for additional information. Additional Copies To Marisa Quan D.O.; Alfredo Hurtado MD, Urology
[2018-02-04] MEDS ORDERED: INSULIN GLARGINE SOLOSTAR 100 UNITS/ML 3 ML PEN SC SCH (21:00)
== END 2018-02-04 13:53 | disposition home or self-care (01) | DRG 872 ==
LOC: C.EDB 11:28 → C.MED 15:13 → ENRESERV 15:58
PROVIDERS: ADMIT Hospitalist; ATTEND Hospitalist
DX: A41.9 Sepsis, unspecified organism (principal); N39.0 Urinary tract infection, site not specified; R73.9 Hyperglycemia, unspecified; D72.829 Elevated white blood cell count, unspecified; E11.65 Type 2 diabetes mellitus with hyperglycemia

== ENCOUNTER → 2018-02-13 | Outpatient (CLI) | payer OTHER ==
[~2018-02-13] MED LIST changes: -ACET-1256; -ATOM25CA; -DLSYL; -FLNIN; -GFNSR600; +INSDGIPEN SC; +KFL500 PO; -MULT-506; +NVLGI/PEN SQ; +OPTIRAY 320 IV PRN; +[UNRECOGNIZED DRUG - CODE] SQ; +[UNRECOGNIZED DRUG - CODE] SQ.; +[UNRECOGNIZED DRUG - OTHER]
--- NOTE | 2018-02-13 14:22 | DIAGNOSTIC IMAGING REPORT ---
CT OF THE ABDOMEN AND PELVIS WITH CONTRAST CLINICAL HISTORY: Gross hematuria. COMPARISON STUDY: CT of the abdomen and pelvis and renal ultrasound February 02, 2018. TECHNIQUE: Following IV administration of 119 mL of Optiray-320, axial images of the abdomen and pelvis were obtained from the lung bases to the proximal femurs. Images were reviewed in the axial, sagittal, and coronal planes. IV contrast was administered without complication. A dose lowering technique was utilized adhering to the principles of ALARA. Delayed phase imaging was performed. CT DOSE: 482.11 mGycm FINDINGS: Lung bases are clear. The liver, spleen, adrenal glands, kidneys and pancreas are normal. There is no hydronephrosis or hydroureter. No upper tract urothelial lesions are identified on this examination. Bladder is incompletely opacified. However, no bladder mass is identified. There is a 1 cm tubular density arising from the anterior superior aspect of the bladder shown on axial image [id number]. This may reflect a tiny urachal remnant. There is no lymphadenopathy. No suspicious osseous lesions are present. The caliber and wall thickness of small and large bowel are normal. IMPRESSION: 1. No upper tract urothelial lesions. No hydronephrosis or hydroureter. 2. Bladder suboptimally assessed given incomplete opacification but no discrete bladder mass by CT. 3. 1 cm tubular density arising from the anterior superior aspect of the bladder which may reflect a tiny urachal remnant. Electronically signed by: Arjun Casas M.D. 02/13/2018 2:21 PM Dictated Date/Time: 02/13/2018 2:12 PM
== END | disposition home or self-care (01) ==
LOC: C.CTS 13:41
PROVIDERS: ATTEND Urology
DX: R31.0 Gross hematuria (principal)

== ENCOUNTER → 2018-04-17 | Outpatient (CLI) | payer OTHER ==
[~2018-04-17] MED LIST changes: +CEFT1INJ57 IV; -INSDGIPEN SC; +INSU100I23 SQ; -KFL500 PO; -OPTIRAY 320 IV PRN; -[UNRECOGNIZED DRUG - CODE] SQ
[2018-04-17 13:49] LABS: BASO % 0.6 %; BASO ABS # 0.07 K/uL (0-0.2); EOS % 1.9 %; EOS ABS # 0.22 K/uL (0-0.5); LYMPH % 34.6 %; LYMPH ABS # 4.05 K/uL (1.2-3.4); MEAN CELL VOLUME 84.1 fL (80-100); MEAN CORPUSCULAR HEMOGLOBIN 29.3 pg (25-34); MEAN CORPUSCULAR HGB CONC 34.8 g/dl (32-36); MEAN PLATELET VOLUME 9.2 fL (7.4-10.4); MONO % 7.9 %; MONO ABS # 0.92 K/uL (0.11-0.59); NEUT % 54.1 %; NEUT ABS # 6.35 K/uL (1.4-6.5); PLATELET COUNT 615 K/uL (130-400); RED CELL DISTRIBUTION WIDTH CV 13.1 % (11.5-14.5); RED CELL DISTRIBUTION WIDTH SD 39.2 fL (36.4-46.3); WHITE BLOOD COUNT 11.71 K/uL (4.8-10.8)
[2018-04-17 14:17] LABS: ALBUMIN 3.6 gm/dl (3.4-5.0); ALKALINE PHOSPHATASE 86 U/L (45-117); ALT/SGPT 27 U/L (12-78); AST/SGOT 10 U/L (15-37); BLOOD UREA NITROGEN 16 mg/dl (7-18); CALCIUM 9.6 mg/dl (8.5-10.1); CARBON DIOXIDE 26 mmol/L (21-32); CREATININE 0.74 mg/dl (0.60-1.40); GLUCOSE 252 mg/dl (70-99); POTASSIUM 4.6 mmol/L (3.5-5.1); SODIUM 133 mmol/L (136-145); TOTAL PROTEIN 8.6 gm/dl (6.4-8.2)
== END | disposition home or self-care (01) ==
LOC: C.LABSPEC 12:42
PROVIDERS: ATTEND Internal Medicine Infectious Disease
DX: M86.9 Osteomyelitis, unspecified (principal)

== ENCOUNTER → 2018-04-24 | Outpatient (CLI) | payer OTHER ==
[2018-04-24 15:31] LABS: HEMATOCRIT 44.8 % (42-52); HEMOGLOBIN 15.9 g/dL (14.0-18.0); MEAN CELL VOLUME 83.6 fL (80-100); MEAN CORPUSCULAR HEMOGLOBIN 29.7 pg (25-34); MEAN CORPUSCULAR HGB CONC 35.5 g/dl (32-36); MEAN PLATELET VOLUME 9.9 fL (7.4-10.4); PLATELET COUNT 432 K/uL (130-400); RED CELL DISTRIBUTION WIDTH CV 13.3 % (11.5-14.5); RED CELL DISTRIBUTION WIDTH SD 40.3 fL (36.4-46.3); WHITE BLOOD COUNT 10.52 K/uL (4.8-10.8)
[2018-04-24 15:42] LABS: ALBUMIN 3.6 gm/dl (3.4-5.0); ALKALINE PHOSPHATASE 80 U/L (45-117); ALT/SGPT 26 U/L (12-78); AST/SGOT 12 U/L (15-37); BLOOD UREA NITROGEN 16 mg/dl (7-18); CALCIUM 9.5 mg/dl (8.5-10.1); CARBON DIOXIDE 26 mmol/L (21-32); CREATININE 0.75 mg/dl (0.60-1.40); GLUCOSE 148 mg/dl (70-99); POTASSIUM 3.8 mmol/L (3.5-5.1); SODIUM 136 mmol/L (136-145)
== END | disposition home or self-care (01) ==
LOC: C.LABSPEC 14:02
PROVIDERS: ATTEND Internal Medicine Infectious Disease
DX: Z79.899 Other long term (current) drug therapy (principal); Z79.2 Long term (current) use of antibiotics

== ENCOUNTER → 2018-05-01 | Outpatient (CLI) | payer OTHER ==
[~2018-05-01] MED LIST changes: +CIPR1TAB11 PO; +DOXY100C76 PO
[2018-05-01 14:08] LABS: HEMATOCRIT 41.7 % (42-52); HEMOGLOBIN 14.9 g/dL (14.0-18.0); MEAN CELL VOLUME 82.2 fL (80-100); MEAN CORPUSCULAR HEMOGLOBIN 29.4 pg (25-34); MEAN CORPUSCULAR HGB CONC 35.7 g/dl (32-36); MEAN PLATELET VOLUME 10.3 fL (7.4-10.4); PLATELET COUNT 316 K/uL (130-400); RED CELL DISTRIBUTION WIDTH CV 13.2 % (11.5-14.5); RED CELL DISTRIBUTION WIDTH SD 39.6 fL (36.4-46.3); WHITE BLOOD COUNT 9.15 K/uL (4.8-10.8)
[2018-05-01 14:19] LABS: ALBUMIN 3.7 gm/dl (3.4-5.0); ALKALINE PHOSPHATASE 88 U/L (45-117); ALT/SGPT 22 U/L (12-78); AST/SGOT 10 U/L (15-37); BLOOD UREA NITROGEN 15 mg/dl (7-18); CALCIUM 9.5 mg/dl (8.5-10.1); CARBON DIOXIDE 26 mmol/L (21-32); CREATININE 0.83 mg/dl (0.60-1.40); GLUCOSE 340 mg/dl (70-99); POTASSIUM 4.2 mmol/L (3.5-5.1); SODIUM 133 mmol/L (136-145); TOTAL PROTEIN 7.8 gm/dl (6.4-8.2)
== END | disposition home or self-care (01) ==
LOC: C.LABSPEC 13:50
PROVIDERS: ATTEND Internal Medicine Infectious Disease
DX: Z79.2 Long term (current) use of antibiotics (principal)

== ENCOUNTER → 2018-05-08 | Outpatient (CLI) | payer OTHER ==
[2018-05-08 11:24] LABS: HEMATOCRIT 43.6 % (42-52); HEMOGLOBIN 15.6 g/dL (14.0-18.0); MEAN CELL VOLUME 82.7 fL (80-100); MEAN CORPUSCULAR HEMOGLOBIN 29.6 pg (25-34); MEAN CORPUSCULAR HGB CONC 35.8 g/dl (32-36); MEAN PLATELET VOLUME 10.3 fL (7.4-10.4); PLATELET COUNT 313 K/uL (130-400); RED CELL DISTRIBUTION WIDTH CV 13.5 % (11.5-14.5); RED CELL DISTRIBUTION WIDTH SD 40.7 fL (36.4-46.3); WHITE BLOOD COUNT 9.29 K/uL (4.8-10.8)
[2018-05-08 11:37] LABS: ALBUMIN 3.8 gm/dl (3.4-5.0); ALKALINE PHOSPHATASE 91 U/L (45-117); ALT/SGPT 21 U/L (12-78); AST/SGOT 10 U/L (15-37); BLOOD UREA NITROGEN 16 mg/dl (7-18); CALCIUM 9.3 mg/dl (8.5-10.1); CARBON DIOXIDE 26 mmol/L (21-32); CREATININE 0.77 mg/dl (0.60-1.40); GLUCOSE 329 mg/dl (70-99); POTASSIUM 4.2 mmol/L (3.5-5.1); SODIUM 135 mmol/L (136-145)
== END | disposition home or self-care (01) ==
LOC: C.LABSPEC 11:03
PROVIDERS: ATTEND Internal Medicine Infectious Disease
DX: Z79.2 Long term (current) use of antibiotics (principal)

== ENCOUNTER 2020-07-28 14:56 | Inpatient (IN) ==
[2020-07-28] MEDS ORDERED: SODIUM CHLORIDE 0.9% 1000ML 2,000 ML IV ONE (15:19)
--- NOTE | 2020-07-28 15:35 | Emergency Department Note ---
Impression & Plan DKA (diabetic ketoacidoses), Hematemesis, Abdominal pain, Acute hypotension, Atrial tachycardia, Abnormal ECG, Metabolic acidosis ED Provider Note NAME: JAYCE CUENCA AGE: 25 SEX: M : 1995 ARRIVES VIA: Walk-In INFORMANT: Patient ED PROVIDER(S): Brad Nguyen DO CHIEF COMPLAINT: Shortness of breath, chest pain, abdominal pain nausea vomiting HPI: Patient is a 25-year-old male type I diabetic who presents to the ER as he has not checked his blood sugars or given himself insulin since this past Monday. He is uncertain of where his glucose meter is. He notes he has had chest pain and shortness of breath which have been present since Monday. Chest pain is located on the left of his chest. It is worse with palpation and movement. He denies any cough or runny nose. He does have diffuse belly pain with nausea and vomiting. He has been unable to keep anything down since Monday/Monday. Denies any dysuria, urgency or frequency. ROS: See above HPI for pertinent positives & negatives. A total of 10 systems reviewed and were otherwise negative. PAST MEDICAL HISTORY:See Below PAST SURGICAL HISTORY:See Below FAMILY HISTORY:See Below SOCIAL HISTORY:See Below HOME MEDICATIONS:See Below ALLERGIES:See Below VITALS:See Below PHYSICAL EXAMINATION: GENERAL: Sitting up in bed, alert, ill-appearing, disheveled EYE EXAM: normal conjunctiva. PERRL and EOM's grossly intact. OROPHARYNX: mucous membranes are dry NECK: supple, no nuchal rigidity, no adenopathy, non-tender LUNGS: Clear to auscultation. Normal chest wall mechanics HEART: Tachycardic, S1 normal and S2 normal ABDOMEN: abdomen soft, non-tender, normo-active bowel sounds, no masses, no rebound or guarding. UPPER EXTREMITIES: upper extremities are grossly normal. LOWER EXTREMITIES: No pitting edema. NEURO EXAM: Normal sensorium, cranial nerves II-XII grossly intact, normal speech, no gross weakness of arms, no gross weakness of legs. MEDICAL DECISION MAKING: Patient is a 25-year-old male who presents the ER who is a type I diabetic who has not checked his blood sugars or given himself insulin since this past Monday. He has been vomiting and unable to keep anything down. He has diffuse belly pain. He notes once this morning he vomited a fair amount of black material. IV was established blood work was obtained. Labs show a leukocytosis of 20,000 and hemoglobin of 18. VBG with a pH 7.2 and a CO2 of 27. Bicarb of 11. BSG 490 and K 4.2 BMP with mild hyponatremia 132. BUN elevated 27 along with a creatinine elevated at 1.6. Glucose was elevated at 500. LFTs were unremarkable. Troponin was negative. Lipase was normal. UA with 4+ ketones. Patient vomited nearly the entire emesis bag of dark black material. This is Gastroccult positive. He was Covid tested. He was given 2 L IV normal saline. Following this he was given 2 L IV Normosol as well as IV potassium. His EKG showed nonspecific ST wave changes which I do favor is rate related. He was Covid tested. He was typed and screened. He was placed on insulin drip and given insulin bolus. He was discussed with the hospitalist as well as GI. Dr. Romano requested n.p.o. and will likely scope in the morning unless recurrence of the coffee-ground emesis. CT abdomen pelvis with no acute pathology. Patient was updated bedside admitted to the hospital for further work-up Triage Nursing notes reviewed. Prior medical records reviewed Vital Signs: reviewed and remarkable for tachycardic and hypotensive Differential diagnosis: Differential diagnosis includes etiologies such as sepsis, UTI, pneumonia, metabolic, electrolyte abnormalities, cardiac sources, intracerebral event, toxicologic, neurological, as well as others were entertained. ER treatment provided: See below Diagnostics interpreted by me: ECG: Sinus tachycardia rate of 131 Normal axis TWI nonspecific ST wave changes V4 through V6 No PVCs Cardiac Monitoring: An order was placed for continuous cardiac monitoring. The monitor shows a rate of 124 with sinus rhythm. Laboratory studies: As stated above and show below. Imaging studies: Portable AP upright 1 view of the chest shows no focal fracture or pneumothorax Consultation(s): Discussed with Dr. Romano from GI who recommends n.p.o., PPI and they will likely scope in the morning. Discussed with Jairo and Dr. Hurtado for admission. ED COURSE: Procedures: none Critical Care: I have personally spent 40 minutes of critical care time in the direct management of this patient. This includes bedside care, interpretation of diagnostic studies, and testing, discussion with consultants, patient, and family members, and other required patient management activities. This 40 minutes is in excess of all separately billable procedures. Past Med/Surg History Medical History (Updated 07/28/20 @ 17:03 by Brad Nguyen DO) Abnormal ejaculation Abscess Osteomyelitis due to secondary diabetes Uncontrolled type 1 diabetes mellitus, with long-term current use of insulin Urachal remnant UTI (urinary tract infection) Surgical History (Updated 05/21/18 @ 11:55 by Renae Morejon RN) History of tonsillectomy and adenoidectomy Social History Smoking Status: Never smoker Feels Safe at Home: Yes Allergies Allergies Allergy/AdvReac Type Severity Reaction Status Date / Time No Known Allergies Allergy Verified 09/04/19 16:48 Home Meds Home Medications Medication Instructions Recorded Confirmed ciprofloxacin HCl 500 mg tablet 500 mg PO BID 05/21/18 09/04/19 doxycycline hyclate 100 mg capsule 100 mg PO BID 05/21/18 09/04/19 insulin aspart U-100 100 unit/mL 1 units SQ .Ac HS ml 05/21/18 09/04/19 (3 mL) subcutaneous pen insulin glargine 100 unit/mL (3 50 units SQ DAILY 05/21/18 09/04/19 mL) subcutaneous pen Previous Rx's Medication Instructions Recorded pseudoephedrine HCl 30 mg tablet 30 mg PO ONCE PRN #30 tab 09/04/19 Results & Data (ED) Vital Signs Vital Signs - 24 hr 07/28/20 15:02 07/28/20 15:15 07/28/20 15:29 Temperature 36.7 C Temperature Source Oral Pulse Rate 141 H Respiratory Rate 18 Respiratory Effort / Characteristics Non-Labored Spontaneous Respiratory Depth Normal Respiratory Pattern Regular Blood Pressure 81/55 L Blood Pressure Mean 63 Blood Pressure Position Sitting Pulse Oximetry 97 Oxygen Delivery Method Room Air Room Air Sepsis Recent Fever Within 48 Hours No Sepsis New/Unexplained Change in Mental Status N/A Sepsis Action Taken by Nursing No Action Required Laboratory Data Result diagrams: 07/28/20 16:00 07/28/20 16:00 Lab Results 07/28/20 07/28/20 07/28/20 Range/Units 16:00 16:00 16:00 WBC 21.24 H (4.8-10.8) K/uL RBC 6.12 H (4.7-6.1) M/uL Hgb 18.7 H (14.0-18.0) g/dL POC Hgb (14.0-18.0) g/dl Hct 52.5 H (42-52) % POC Hct (42-52) % MCV 85.8 (80-100) fL MCH 30.6 (25-34) pg MCHC 35.6 (32-36) g/dL RDW Std Deviation 43.2 (36.4-46.3) fL RDW Coeff of Annie 13.8 (11.5-14.5) % Plt Count 411 H (130-400) K/uL MPV 10.4 (7.4-10.4) fL Neutrophils % (Manual) 69.7 % Lymphocytes % (Manual) 9.8 % Monocytes % (Manual) 19.6 % Metamyelocytes % (Man) 0.9 % Neutrophils # (Manual) 14.80 H (1.4-6.5) K/uL Total Absolute Neuts 14.80 H (1.4-6.5) K/uL Lymphocytes # (Manual) 2.08 (1.2-3.4) K/uL Total Abs Lymphocytes 2.08 (1.2-3.4) K/uL Monocytes # (Manual) 4.16 H (0.11-0.59) K/uL Metamyelocytes # (Man) 0.19 H (0-0) K/uL RBC Morphology Unremarkable VBG pH 7.20 L (7.36-7.41) VBG pCO2 27 L (38-50) mmHg VBG pO2 33 mmHg VBG HCO3 11 mmol/L VBG O2 Saturation < 60.0 % VBG Base Excess -15.5 mEq/L Barometric Pressure 738.0 mm/Hg POC Sodium (135-144) mmol/L Sodium 132 L (136-145) mmol/L POC Potassium (3.3-5.0) mmol/L Potassium 4.2 (3.5-5.1) mmol/L POC Chloride (101-112) mmol/L Chloride 99 (98-107) mmol/L Carbon Dioxide 11 L (21-32) mmol/L POC Total CO2 (24-31) mmol/L Anion Gap 22.0 H (3-11) POC Anion Gap (16-25) mmol/L POC BUN (7-18) mg/dl BUN 27 H (7-18) mg/dl Creatinine 1.60 H (0.6-1.4) mg/dl POC Creatinine (0.6-1.3) mg/dl Est Cr Clr Drug Dosing 55.6 ml/min Est GFR ( Amer) 69.4 Est GFR (Non-Af Amer) 59.8 BUN/Creatinine Ratio 16.8 (10-20) Glucose 498 H* (70-99) mg/dl POC Glucose (70-99) mg/dl POC Glucose (other) (70-99) mg/dl Calcium 9.1 (8.5-10.1) mg/dl POC Ioniz Calcium Rell (1.12-1.32) mmol/l Total Bilirubin 0.4 (0.2-1) mg/dl AST 14 L (15-37) U/L ALT 32 (12-78) U/L Alkaline Phosphatase 106 (45-117) U/L Troponin I < 0.015 (0-0.045) ng/ml Total Protein 8.1 (6.4-8.2) gm/dl Albumin 3.1 L (3.4-5.0) gm/dl Globulin 5.0 H (2.5-4.0) gm/dl Albumin/Globulin Ratio 0.6 L (0.9-2) Lipase 232 (73-393) U/L Beta-Hydroxybutyric Acd 85.78 H (0.2-2.81) mg/dl Urine Color Urine Appearance (Clear) Urine pH (4.5-7.5) Ur Specific Jolley (1.000-1.030) Urine Protein (Negative) Urine Glucose (UA) (Negative) Urine Ketones (Negative) Urine Blood (Negative) Urine Nitrite (Negative) Urine Bilirubin (Negative) Urine Urobilinogen (Negative) Ur Leukocyte Esterase (Negative) Urine WBC (Auto) (0-5) /hpf Urine RBC (Auto) (0-4) /hpf U Hyaline Cast (Auto) (0-5) /lpf U Epithel Cells (Auto) (0-5) /lpf Urine Bacteria (Auto) (Negative) Gastric Fluid pH Gastric Occult Blood (Negative) COVID-19 Eval Order COVID-19 PCR (Negative) 11/03/20 11/03/20 11/03/20 Range/Units 16:03 16:05 16:05 WBC (4.8-10.8) K/uL RBC (4.7-6.1) M/uL Hgb (14.0-18.0) g/dL POC Hgb (14.0-18.0) g/dl Hct (42-52) % POC Hct (42-52) % MCV (80-100) fL MCH (25-34) pg MCHC (32-36) g/dL RDW Std Deviation (36.4-46.3) fL RDW Coeff of Annie (11.5-14.5) % Plt Count (130-400) K/uL MPV (7.4-10.4) fL Neutrophils % (Manual) % Lymphocytes % (Manual) % Monocytes % (Manual) % Metamyelocytes % (Man) % Neutrophils # (Manual) (1.4-6.5) K/uL Total Absolute Neuts (1.4-6.5) K/uL Lymphocytes # (Manual) (1.2-3.4) K/uL Total Abs Lymphocytes (1.2-3.4) K/uL Monocytes # (Manual) (0.11-0.59) K/uL Metamyelocytes # (Man) (0-0) K/uL RBC Morphology VBG pH (7.36-7.41) VBG pCO2 (38-50) mmHg VBG pO2 mmHg VBG HCO3 mmol/L VBG O2 Saturation % VBG Base Excess mEq/L Barometric Pressure mm/Hg POC Sodium (135-144) mmol/L Sodium (136-145) mmol/L POC Potassium (3.3-5.0) mmol/L Potassium (3.5-5.1) mmol/L POC Chloride (101-112) mmol/L Chloride (98-107) mmol/L Carbon Dioxide (21-32) mmol/L POC Total CO2 (24-31) mmol/L Anion Gap (3-11) POC Anion Gap (16-25) mmol/L POC BUN (7-18) mg/dl BUN (7-18) mg/dl Creatinine (0.6-1.4) mg/dl POC Creatinine (0.6-1.3) mg/dl Est Cr Clr Drug Dosing ml/min Est GFR ( Amer) Est GFR (Non-Af Amer) BUN/Creatinine Ratio (10-20) Glucose (70-99) mg/dl POC Glucose 486 H* (70-99) mg/dl POC Glucose (other) (70-99) mg/dl Calcium (8.5-10.1) mg/dl POC Ioniz Calcium Rell (1.12-1.32) mmol/l Total Bilirubin (0.2-1) mg/dl AST (15-37) U/L ALT (12-78) U/L Alkaline Phosphatase (45-117) U/L Troponin I (0-0.045) ng/ml Total Protein (6.4-8.2) gm/dl Albumin (3.4-5.0) gm/dl Globulin (2.5-4.0) gm/dl Albumin/Globulin Ratio (0.9-2) Lipase (73-393) U/L Beta-Hydroxybutyric Acd (0.2-2.81) mg/dl Urine Color Urine Appearance (Clear) Urine pH (4.5-7.5) Ur Specific Jolley (1.000-1.030) Urine Protein (Negative) Urine Glucose (UA) (Negative) Urine Ketones (Negative) Urine Blood (Negative) Urine Nitrite (Negative) Urine Bilirubin (Negative) Urine Urobilinogen (Negative) Ur Leukocyte Esterase (Negative) Urine WBC (Auto) (0-5) /hpf Urine RBC (Auto) (0-4) /hpf U Hyaline Cast (Auto) (0-5) /lpf U Epithel Cells (Auto) (0-5) /lpf Urine Bacteria (Auto) (Negative) Gastric Fluid pH Gastric Occult Blood (Negative) COVID-19 Eval Order Covid19 Done at [facility] COVID-19 PCR NEGATIVE (Negative) 07/28/20 07/28/20 07/28/20 Range/Units 16:07 16:10 16:19 WBC (4.8-10.8) K/uL RBC (4.7-6.1) M/uL Hgb (14.0-18.0) g/dL POC Hgb 20.1 H* (14.0-18.0) g/dl Hct (42-52) % POC Hct 59 H (42-52) % MCV (80-100) fL MCH (25-34) pg MCHC (32-36) g/dL RDW Std Deviation (36.4-46.3) fL RDW Coeff of Annie (11.5-14.5) % Plt Count (130-400) K/uL MPV (7.4-10.4) fL Neutrophils % (Manual) % Lymphocytes % (Manual) % Monocytes % (Manual) % Metamyelocytes % (Man) % Neutrophils # (Manual) (1.4-6.5) K/uL Total Absolute Neuts (1.4-6.5) K/uL Lymphocytes # (Manual) (1.2-3.4) K/uL Total Abs Lymphocytes (1.2-3.4) K/uL Monocytes # (Manual) (0.11-0.59) K/uL Metamyelocytes # (Man) (0-0) K/uL RBC Morphology VBG pH (7.36-7.41) VBG pCO2 (38-50) mmHg VBG pO2 mmHg VBG HCO3 mmol/L VBG O2 Saturation % VBG Base Excess mEq/L Barometric Pressure mm/Hg POC Sodium 134 L (135-144) mmol/L Sodium (136-145) mmol/L POC Potassium 4.2 (3.3-5.0) mmol/L Potassium (3.5-5.1) mmol/L POC Chloride 102 (101-112) mmol/L Chloride (98-107) mmol/L Carbon Dioxide (21-32) mmol/L POC Total CO2 10 L (24-31) mmol/L Anion Gap (3-11) POC Anion Gap 26.0 H (16-25) mmol/L POC BUN 28 H (7-18) mg/dl BUN (7-18) mg/dl Creatinine (0.6-1.4) mg/dl POC Creatinine 1.1 (0.6-1.3) mg/dl Est Cr Clr Drug Dosing ml/min Est GFR ( Amer) Est GFR (Non-Af Amer) BUN/Creatinine Ratio (10-20) Glucose (70-99) mg/dl POC Glucose (70-99) mg/dl POC Glucose (other) 491 H* (70-99) mg/dl Calcium (8.5-10.1) mg/dl POC Ioniz Calcium Rell 1.15 (1.12-1.32) mmol/l Total Bilirubin (0.2-1) mg/dl AST (15-37) U/L ALT (12-78) U/L Alkaline Phosphatase (45-117) U/L Troponin I (0-0.045) ng/ml Total Protein (6.4-8.2) gm/dl Albumin (3.4-5.0) gm/dl Globulin (2.5-4.0) gm/dl Albumin/Globulin Ratio (0.9-2) Lipase (73-393) U/L Beta-Hydroxybutyric Acd (0.2-2.81) mg/dl Urine Color Yellow Urine Appearance Clear (Clear) Urine pH 5.0 (4.5-7.5) Ur Specific Jolley 1.028 (1.000-1.030) Urine Protein 1+ H (Negative) Urine Glucose (UA) 3+ H (Negative) Urine Ketones 4+ H (Negative) Urine Blood 1+ H (Negative) Urine Nitrite Negative (Negative) Urine Bilirubin Negative (Negative) Urine Urobilinogen Negative (Negative) Ur Leukocyte Esterase Negative (Negative) Urine WBC (Auto) 1-5 (0-5) /hpf Urine RBC (Auto) 5-10 H (0-4) /hpf U Hyaline Cast (Auto) 1-5 (0-5) /lpf U Epithel Cells (Auto) 0-5 (0-5) /lpf Urine Bacteria (Auto) Negative (Negative) Gastric Fluid pH 3 Gastric Occult Blood Positive A (Negative) COVID-19 Eval Order COVID-19 PCR (Negative) Administered Medications Discontinued Medications Sodium Chloride (Nss 1000ml) 2,000 mls @ 999 mls/hr IV .Q2H1M ONE Stop: 07/28/20 17:19 Last Admin: 07/28/20 16:06 Dose: 999 mls/hr Documented by: [id number] Ioversol (Ioversol 100ml) 94 ml IV ONCE ONE Stop: 07/28/20 17:10 Last Admin: 07/28/20 17:09 Dose: 94 ml Documented by: [id number] Discharge Plan Visit Data Chief Complaint: Shortness of Breath/Dyspnea Stated Complaint: SOB ED Provider: Brad Nguyen Discharge Problem: DKA (diabetic ketoacidoses), Hematemesis, Abdominal pain, Acute hypotension, Atrial tachycardia, Abnormal ECG, Metabolic acidosis Forms Stand Alone Forms: [facility] Prescriptions Prescriptions: No Action ciprofloxacin HCl [Cipro] 500 mg tablet 500 mg PO BID RF: 0 doxycycline hyclate 100 mg capsule 100 mg PO BID RF: 0 insulin aspart U-100 [Novolog Flexpen U-100 Insulin] 100 unit/mL insulin pen 1 units SQ .Ac HS RF: 0 insulin glargine [Basaglar KwikPen U-100 Insulin] 100 unit/mL (3 mL) insulin pen 50 units SQ DAILY RF: 0 pseudoephedrine HCl [Sudafed] 30 mg tablet 30 mg PO ONCE PRN (Reason: nasal congestion) Qty: 30 RF: 1 Discharge Problem: DKA (diabetic ketoacidoses) Qualifiers: Diabetes mellitus type: other specified (including VASQUEZ) Diabetes mellitus complication detail: without coma Qualified Code(s): E13.10 - Other specified diabetes mellitus with ketoacidosis without coma Hematemesis Qualifiers: Nausea presence: with nausea Qualified Code(s): K92.0 - Hematemesis Abdominal pain Qualifiers: Abdominal location: unspecified location Qualified Code(s): R10.9 - Unspecified abdominal pain
--- NOTE | 2020-07-28 15:56 | XRay Report ---
XR chest 1V portable HISTORY: 25 years-old Male cp acute atypical chest pain with nausea and vomiting COMPARISON: Chest radiograph 04/05/2018 TECHNIQUE: Portable AP view of the chest FINDINGS: Cardiomediastinal and hilar silhouettes are within normal limits. No pneumothorax, pleural effusion, airspace consolidation or overt pulmonary edema. Bones of the chest appear grossly intact. IMPRESSION: No acute process. ACT 112: Negative or not required by law. The above report was generated using voice recognition software. It may contain grammatical, syntax o r spelling errors. Electronically signed by: Kushal Moura M.D. 07/28/2020 3:55 PM
[2020-07-28 16:09] LABS: Mean Corpuscular Hgb Conc 35.6 g/dL (32-36); Mean Platelet Volume 10.4 fL (7.4-10.4); Platelet Count 411 K/uL (130-400)
--- NOTE | 2020-07-28 16:10 | Electrocardiogram Report ---
Test Reason : Blood Pressure : / mmHG Vent. Rate : 131 BPM Atrial Rate : 131 BPM P-R Int : 122 ms QRS Dur : 094 ms QT Int : 300 ms P-R-T Axes : 063 072 029 degrees QTc Int : 443 ms Sinus tachycardia Nonspecific T wave abnormality Abnormal ECG When compared with ECG of 05-APR-2018 22:41, Nonspecific T wave abnormality now evident in Anterolateral leads Confirmed by Shubham Rai ([id number]) on 07/28/2020 4:10:19 PM Referred By: Confirmed By:Justin Rai
[2020-07-28] MEDS ORDERED: PANTOprazole 80 MG in DEXTROSE 5% 100 ML IV ONE (16:12)
[2020-07-28] MEDS ORDERED: PANTOPRAZOLE BOLUS/DRIP 1 EA IV STA (16:12)
[2020-07-28 16:14] LABS: Base Excess VBG -15.5 mEq/L; HCO3 VBG 11 mmol/L; PCO2 VBG 27 mmHg (38-50); PO2 VBG 33 mmHg
[2020-07-28 16:25] LABS: Oxygen Saturation VBG < 60.0 %
[2020-07-28] MEDS ORDERED: GLUCAGON FOR INJ 1 MG VIAL SQ PRN (16:29)
[2020-07-28] MEDS ORDERED: CARBOHYDRATES FOR HYPOGLYCEMIA PO PRN (16:29)
[2020-07-28] MEDS ORDERED: GLUCOSE 10 TABS/TUBE PO PRN (16:29)
[2020-07-28] MEDS ORDERED: ED DKA INSULIN DRIP ONE (16:29)
[2020-07-28] MEDS ORDERED: DEXTROSE 50% 50 ML SYRINGE IV PRN (16:29)
[2020-07-28] MEDS ORDERED: DKA GOAL RANGE 150-250 mg/dl ONE (16:29)
[2020-07-28] MEDS ORDERED: GLUCOSE 40% GEL 15 GM TUBE PO PRN (16:29)
[2020-07-28] MEDS ORDERED: INSULIN ASPART 100 UNITS/ML 3 ML PEN SC SCH (16:30)
[2020-07-28 16:32] LABS: Appearance Urine Clear (Clear); Bacteria Urine Automated Negative (Negative); Bilirubin Urine Negative (Negative); Blood Urine 1+ (Negative); Color Urine Yellow; Epithelial Cell Urine Auto 0-5 /lpf (0-5); Glucose Urine UA 3+ (Negative); Ketones Urine 4+ (Negative); Leukocyte Esterase Urine Negative (Negative); Nitrite Urine Negative (Negative); Protein Urine 1+ (Negative); Specific Gravity Urine 1.028 (1.000-1.030); Urobilinogen Urine Negative (Negative)
[2020-07-28] MEDS ORDERED: NovoLIN-R BOLUS FROM BAG IV STA (16:34)
[2020-07-28 16:40] LABS: Alanine Aminotransferase 32 U/L (12-78); Albumin Globulin Ratio 0.6 (0.9-2); Albumin Level 3.1 gm/dl (3.4-5.0); Alkaline Phosphatase 106 U/L (45-117); Aspartate Aminotransferase 14 U/L (15-37); BUN Creatinine Ratio 16.8 (10-20); Bilirubin,Total 0.4 mg/dl (0.2-1); Blood Urea Nitrogen 27 mg/dl (7-18); Calcium 9.1 mg/dl (8.5-10.1); Carbon Dioxide 11 mmol/L (21-32); Chloride 99 mmol/L (98-107); Creatinine Clr Calc Pharmacy 55.6 ml/min; Est GFR (African American) 69.4; Est GFR (Non-African American) 59.8; Glucose 498 mg/dl (70-99); Lipase 232 U/L (73-393); Potassium 4.2 mmol/L (3.5-5.1); Sodium 132 mmol/L (136-145); Total Protein 8.1 gm/dl (6.4-8.2); Troponin I < 0.015 ng/ml (0-0.045)
[2020-07-28 16:40] LABS: iSTAT Creatinine 1.1 mg/dl (0.6-1.3); iSTAT Hemoglobin 20.1 g/dl (14.0-18.0); iSTAT Ionized Calcium 1.15 mmol/l (1.12-1.32); iSTAT Potassium 4.2 mmol/L (3.3-5.0)
[2020-07-28 16:41] LABS: Gastric Occult Blood Positive (Negative); pH Gastric Fluid 3
[2020-07-28] MEDS ORDERED: NORMOSOL-R 1,000 ML IV ONE ×2 (16:54→17:00)
[2020-07-28] MEDS ORDERED: POTASSIUM CHLORIDE / WTR 10 MEQ/100 ML PLCT IV ONE (16:54)
[2020-07-28] MEDS ORDERED: IOVERSOL 100ml IV ONE (17:09)
[2020-07-28 17:18] LABS: Hematocrit (blood only) 52.5 % (42-52); Hemoglobin 18.7 g/dL (14.0-18.0); Mean Corpuscular Hemoglobin 30.6 pg (25-34); Mean Corpuscular Volume 85.8 fL (80-100); RDW Coefficient of Variation 13.8 % (11.5-14.5); RDW Standard Deviation 43.2 fL (36.4-46.3); Red Blood Count 6.12 M/uL (4.7-6.1); White Blood Count 21.24 K/uL (4.8-10.8)
[2020-07-28 17:20] LABS: Beta-Hydroxybutyrate 85.78 mg/dl (0.2-2.81)
[2020-07-28 17:24] LABS: ALC (manual) 2.08 K/uL (1.2-3.4); Lymphocytes # (manual) 2.08 K/uL (1.2-3.4); Lymphocytes % (manual) 9.8 %; Metamyelocytes # (manual) 0.19 K/uL (0-0); Metamyelocytes % (manual) 0.9 %; Monocytes # (manual) 4.16 K/uL (0.11-0.59); Monocytes % (manual) 19.6 %; Neutrophils % (manual) 69.7 %; RBC Morphology Unremarkable
--- NOTE | 2020-07-28 17:28 | CT Scan Report ---
CT SCAN OF THE ABDOMEN AND PELVIS WITH IV CONTRAST CLINICAL HISTORY: Generalized abdominal pain. Hematemesis. COMPARISON STUDY: Abdominal CT dated 02/13/2018. TECHNIQUE: Following the IV administration of 94 cc of Optiray 320, CT scan of the abdomen and pelvi s is performed from the lung bases to the proximal femora. Images are reviewed in the axial, sagittal , and coronal planes. IV contrast was administered without complication. A dose lowering technique wa s utilized adhering to the principles of ALARA. CT DOSE: 449.15 mGycm FINDINGS: Lung bases: The heart is normal in size and without pericardial effusion. The lung bases are clear. Liver: The contrast-enhanced liver is normal in size, contour, and attenuation. There is no intrahepa tic biliary ductal dilatation. The hepatic veins and portal veins are patent. Gallbladder: Unremarkable. Spleen: Normal in size and attenuation. Pancreas: Unremarkable. Adrenal glands: Unremarkable. Kidneys: The contrast enhanced kidneys are normal in size and without hydronephrosis. The kidneys enh ance symmetrically. Abdominal vasculature: The abdominal aorta is normal in course and caliber. Bowel: There is no bowel obstruction. The appendix is well-visualized and normal. Peritoneum: There is no intraperitoneal free air or abdominal ascites. Lymphadenopathy: None. Pelvic viscera: The bladder is distended but otherwise normal in appearance. The prostate and seminal vesicles are normal as visualized. Skeletal structures: No lytic or blastic lesions are seen. IMPRESSION: There are no acute infectious or inflammatory findings in the abdomen or pelvis. ACT 112: Negative or not required by law. Electronically signed by: Familia Parra M.D. 07/28/2020 5:26 PM
[2020-07-28] MEDS: INSULIN REGULAR 250 UNITS in SODIUM CHLORIDE 0.9% 247.5 ML IV SCH (17:40)
[2020-07-28] MEDS: PANTOprazole 40 MG in DEXTROSE 5% 100 ML IV SCH ×2 (17:44→22:22)
[2020-07-28 17:50] LABS: Magnesium 1.9 mg/dl (1.8-2.4); Phosphorus 4.1 mg/dl (2.5-4.9)
--- NOTE | 2020-07-28 18:09 | History & Physical Report ---
Date of Service July 28, 2020 Assessment & Plan (1) DKA (diabetic ketoacidoses): Normal insulin regimen is 50 units of Novolog for breakfast, lunch, dinner, and bedtime, plus 50 units of glargine at dinner. Hasn't taken ANY insulin since Monday evening. - DKA protocol with glycemic pharmacist consulted - A1c pending - press technician consulted as he clearly needs counseling on how insulin works with the body. (2) Hematemesis: Starting Monday morning, had several episodes of dark emesis. It honestly looks more brownish to me and possibly feculent or bilious compared to coffee- grounds. - PPI bolus and gtt started in the ED -> Continue - Blood transfusion consent signed and in the chart - Monitor hgb closely (3) Hypertension: Given volume depletion, BP was actually low rather than high on arrival. After 2L IV fluids, his BP was normal at 130/80. - Hold BP meds (4) Dyslipidemia: Not on statin at baseline. - Outpatient work-up (5) DVT prophylaxis: SCDs - Low DVT risk per admission calculator History of Present Illness Primary Care Provider: Bhavya Stanley MD 25yo M w/ hx of DM1 and HTN who presents with DKA and possible hematemesis. He reports that he got on Monday. He did not take ANY insulin on Monday. He cannot really explain why other than he thought he wouldn't eat a lot the rest of the day. On Monday for breakfast, he ate pancakes and eggs with his best man. He got and noted that around 2pm, he started to feel funny and have some subjective chills. He felt worse on Monday and started to have large numbers of emesis. At first, it was just what he had eaten or drank, but on Monday, he had one episode that had a slight amount of dark material in it and then another that had significant black/brown material. He reports it is possible he had some "coffee ground" specks in it, but is not sure. Other than the chills he mentioned starting on Monday, he has no other positive ROS. Allergies Allergy/AdvReac Type Severity Reaction Status Date / Time No Known Allergies Allergy Verified 09/04/19 16:48 Home Medications Home Medications Medication Instructions Recorded Confirmed Type insulin aspart U-100 [Novolog 50 unit SUBCUT QID 07/28/20 07/28/20 History Flexpen U-100 Insulin] insulin glargine [Basaglar KwikPen 50 unit SUBCUT QPM 07/28/20 07/28/20 History U-100 Insulin] losartan 25 mg PO DAILY 07/28/20 07/28/20 History metoprolol succinate 25 mg PO DAILY 07/28/20 07/28/20 History Past Med/Surg History Medical History Abnormal ejaculation Abscess Osteomyelitis due to secondary diabetes Uncontrolled type 1 diabetes mellitus, with long-term current use of insulin Urachal remnant UTI (urinary tract infection) Surgical History History of tonsillectomy and adenoidectomy Social History Smoking Status: Never smoker Feels Safe at Home: Yes Review of Systems Review of Systems: All systems reviewed & are unremarkable except as noted in HPI & below Physical Exam Constitutional: WD/WN, vitals as above + acute distress Eyes: EOM intact bilaterally; no conjunctival abnormality ENMT: external ear and nose normal, oropharynx normal Neck: trachea midline, no thyromegaly normal visual inspection Respiratory: normal respiratory effort, lungs clear to auscultation + tachypneic; no respiratory distress Cardiovascular: RRR, no murmur, no edema Gastrointestinal (Abdomen): Inspection/Auscultation: abdomen normal to inspection; abdomen not distended Musculoskeletal: no cyanosis or clubbing, extremities motor strength 5/5 Skin: no rashes, warm and dry Neurologic: moves all extremities and awake Psychiatric: Orientation: alert, oriented to person and cooperative Results & Data Results & Data ([facility]) Vital Signs (Past 12 Hours) Vital Signs Temp Pulse Resp BP Pulse Ox 07/28/20 17:50 120 H 16 99 07/28/20 17:40 118 H 29 H 99 07/28/20 17:30 116 H 21 131/81 99 07/28/20 17:22 121 H 27 H 100 07/28/20 17:00 124 H 18 100 07/28/20 16:50 124 H 19 100 07/28/20 16:40 124 H 19 99 07/28/20 16:30 126 H 18 156/92 H 99 07/28/20 16:20 126 H 21 99 07/28/20 16:10 99 07/28/20 16:02 99 07/28/20 16:01 145/100 H 99 07/28/20 15:30 100 07/28/20 15:20 130 H 26 H 100 07/28/20 15:15 36.7 C 07/28/20 15:10 130 H 17 114/97 100 07/28/20 15:02 141 H 18 81/55 L 97 Code Status & VTE Plan VTE Prophylaxis Plan VTE Prophylaxis will be ordered: Yes PG Care Time/CCT Total # of Minutes Spent Total Time Spent with Patient: Total time spent is greater than 50% in coordination of care (as documented) at patient's floor/unit and/or counseling patient: Coding Level of Care Code 08340 Initial Inpt Care Lvl 3 Diagnoses DKA (diabetic ketoacidoses) E13.10 Diabetes mellitus complication detail: without coma Diabetes mellitus type: other specified (including VASQUEZ) Hematemesis K92.0 Nausea presence: with nausea Hypertension I10 Dyslipidemia E78.5 DVT prophylaxis Z29.9 (1) DKA (diabetic ketoacidoses) Diabetes mellitus complication detail: without coma Diabetes mellitus type: other specified (including VASQUEZ) Qualified Code(s): E13.10 - Other specified diabetes mellitus with ketoacidosis without coma (2) Hematemesis Nausea presence: with nausea Qualified Code(s): K92.0 - Hematemesis
[2020-07-28] MEDS ORDERED: ONDANSETRON INJ 2 MG/ML 2 ML VIAL IV PRN (19:58)
[2020-07-28] MEDS ORDERED: ACETAMINOPHEN 325 MG TAB PO PRN (19:58)
[2020-07-28] MEDS ORDERED: PHARMACY GLYCEMIC MGMT CONSULT PRN (20:09)
[2020-07-28] MEDS ORDERED: SODIUM CHLOR 0.45% + 20MEQ KCL 20 MEQ/1,000 ML BAG IV SCH (20:30)
[2020-07-28] MEDS ORDERED: PENDING D5 1/2NS+20mEq KCL IVF SCH (20:30)
[2020-07-28] MEDS: INSULIN ASPART 100 UNITS/ML 3 ML PEN SC SCH (21:08)
[2020-07-28 21:41] LABS: Calcium 8.1 mg/dl (8.5-10.1); Creatinine Clr Calc Pharmacy 97.4 ml/min; Est GFR (African American) 100.2; Est GFR (Non-African American) 86.5; Magnesium 1.9 mg/dl (1.8-2.4); Potassium 3.7 mmol/L (3.5-5.1)
--- NOTE | 2020-07-28 21:48 | Pharmacy Report ---
Glycemic Control Consultation - Date of Service July 28, 2020 - Scope Scope: Glycemic Pharmacist consulted for glycemic control and to write orders per [facility] inpatient glycemic control protocol. - Objective Weight: 73.028 kg Accuchecks BSG (last 24hrs): 07/28/20 07/28/20 07/28/20 16:00 16:03 16:19 Glucose 498 H* POC Glucose 486 H* POC Glucose (other) 491 H* 07/28/20 07/28/20 07/28/20 17:33 18:50 19:57 Glucose POC Glucose 445 H* 333 H* 259 H POC Glucose (other) 07/28/20 21:10 Glucose POC Glucose 216 H POC Glucose (other) Laboratory Data (last 24hrs): 07/28/20 07/28/20 16:00 16:53 Potassium 4.2 Carbon Dioxide 11 L Anion Gap 22.0 H Creatinine 1.60 H Est Cr Clr Drug Dosing 55.6 Beta-Hydroxybutyric Acd 85.78 H - Recent Pertinent Medications Outpatient Anti-diabetic Regimen: * Lantus 50 units SC daily w/ last meal of day * Novolog 50 units SC ACHS * A1c ordered and pending - Assessment & Plan Assessment & Plan: ASSESSMENT: * CS is a 25 year old male who presented to the [facility] ED on evening of 07/28 with shortness of breath, chest pain, abdominal pain, and nausea/vomiting. Patient subsequently admitted for treatment of diabetic ketoacidosis. * BSG of 498 mg/dL on presentation - last dose of insulin was Monday evening * Labs on presentation: * K+: 4.2, CO2: 11, A, beta-hydroxybutyric acid: 85.8, pH: 7.2 * In ED - insulin infusion was initiated along with 2 liters of Normosol-R * BSG improved to 259 mg/dL at time of admission * Current IV fluids: 1/2 NS w/ 20 KCl @125 mL/hr * Will incorporate dextrose into fluids once BSG falls below 250 mg/dL * Patient with likely pre-renal YANIRA (SCr improved from 1.6 to 1.18 mg/dL since presentation) PLAN FOR INPATIENT GLYCEMIC CONTROL: * Starting IV insulin infusion * Goal Range 150 - 250 mg/dl * In the critical care setting, continuous IV insulin infusion has been shown to be the best method for achieving glycemic targets. * Basal insulin * Hold for now * Bolus insulin * NovoLog per scale ACHS or Q6hrs while NPO * Per Insulin Infusion Adjustment Calculator * Please note that the plan above was derived based on current level of insulin resistance and hospital stress. These recommendations are appropriate for inpatient admission only. Plan of care upon discharge will need to be reassessed to avoid potential outpatient hypo/hyperglycemia. Thank you.
[2020-07-28 21:54] LABS: Phosphorus 1.6 mg/dl (2.5-4.9)
[2020-07-29 01:04] LABS: BUN Creatinine Ratio 21.7 (10-20); Calcium 7.7 mg/dl (8.5-10.1); Creatinine Clr Calc Pharmacy 120.9 ml/min; Est GFR (African American) 130.2; Est GFR (Non-African American) 112.4; Magnesium 1.8 mg/dl (1.8-2.4); Potassium 3.4 mmol/L (3.5-5.1)
[2020-07-29 01:16] LABS: Phosphorus 1.4 mg/dl (2.5-4.9)
[2020-07-29] MEDS: D5W AND 1/2NSS + 20MEQ KCL 20 MEQ/1,000 ML BAG IV SCH ×2 (01:16→08:07)
[2020-07-29] MEDS ORDERED: POTASSIUM PHOS 3 MMOL/1 ML INFUSION IV STA ×2 (01:25→13:33)
[2020-07-29] MEDS ORDERED: POTASSIUM PHOSPHATE 30 MMOL in SODIUM CHLORIDE 0.9% 500 ML IV ONE (01:45)
[2020-07-29 02:30] LABS: Hematocrit (blood only) 40.3 % (42-52); Hemoglobin 14.4 g/dL (14.0-18.0); Mean Corpuscular Hemoglobin 29.7 pg (25-34); Mean Corpuscular Hgb Conc 35.7 g/dL (32-36); Mean Corpuscular Volume 83.1 fL (80-100); Mean Platelet Volume 9.6 fL (7.4-10.4); Platelet Count 353 K/uL (130-400); RDW Coefficient of Variation 13.7 % (11.5-14.5); RDW Standard Deviation 41.8 fL (36.4-46.3); Red Blood Count 4.85 M/uL (4.7-6.1); White Blood Count 15.82 K/uL (4.8-10.8)
[2020-07-29] MEDS: PANTOprazole 40 MG in DEXTROSE 5% 100 ML IV SCH ×2 (03:34→08:08)
[2020-07-29 05:35] LABS: Albumin Level 1.9 gm/dl (3.4-5.0); Calcium 7.2 mg/dl (8.5-10.1); Creatinine Clr Calc Pharmacy 138.4 ml/min; Est GFR (African American) 143.7; Magnesium 1.9 mg/dl (1.8-2.4); Potassium 3.8 mmol/L (3.5-5.1)
[2020-07-29 05:39] LABS: Albumin Globulin Ratio 0.6 (0.9-2); Bilirubin,Total 0.1 mg/dl (0.2-1); Globulin 3.3 gm/dl (2.5-4.0); Phosphorus 2.3 mg/dl (2.5-4.9); Total Protein 5.2 gm/dl (6.4-8.2)
[2020-07-29 05:58] LABS: Estimated Average Glucose 361 mg/dl; Hemoglobin A1C 14.2 % (4.5-5.6)
[2020-07-29] MEDS: INSULIN ASPART 100 UNITS/ML 3 ML PEN SC SCH ×3 (08:54→20:43)
[2020-07-29 09:01] LABS: BUN Creatinine Ratio 19.3 (10-20); Calcium 7.6 mg/dl (8.5-10.1); Creatinine Clr Calc Pharmacy 143.6 ml/min; Est GFR (African American) 145.9; Est GFR (Non-African American) 125.9; Magnesium 1.9 mg/dl (1.8-2.4)
[2020-07-29 09:02] LABS: Phosphorus 1.9 mg/dl (2.5-4.9)
--- NOTE | 2020-07-29 09:58 | Pharmacy Report ---
Pharmacy Glycemic Short Note 2 - Date of Service July 29, 2020 - Glycemic Short BSG Results (Last 24 hours): 07/28/20 07/28/20 07/28/20 16:00 16:03 16:19 Glucose 498 H* POC Glucose 486 H* POC Glucose (other) 491 H* 07/28/20 07/28/20 07/28/20 17:33 18:50 19:57 Glucose POC Glucose 445 H* 333 H* 259 H POC Glucose (other) 07/28/20 07/28/20 07/28/20 21:10 21:13 22:05 Glucose 242 H POC Glucose 216 H 189 H POC Glucose (other) 07/28/20 07/29/20 07/29/20 23:05 00:13 00:37 Glucose 163 H POC Glucose 173 H 149 H POC Glucose (other) 07/29/20 07/29/20 07/29/20 01:15 02:14 03:33 Glucose POC Glucose 160 H 164 H 174 H POC Glucose (other) 07/29/20 07/29/20 07/29/20 05:00 05:31 07:08 Glucose 189 H POC Glucose 182 H 186 H POC Glucose (other) 07/29/20 07/29/20 08:30 08:58 Glucose 190 H POC Glucose 180 H POC Glucose (other) OUTPATIENT ANTIDIABETIC REGIMEN: Clarified with patient during conversation 114 AM * Basaglar 50 units SC with dinner (patient reports he only *takes* about twice a week) * Novolog ACHS * Carb ratio 5 g CHO/unit (patient reports he only *takes* about six doses per week) * Correctional insulin for elevated BSG's, but patient has not taken in well over a month because he lost his meter ASSESSMENT: * 25 yo M with T1DM admitted with DKA on 07/28 2nd lack of insulin since 07/24 (of note - patient got on 07/25). Significant outpatient non- adherence also noted prior to abrupt discontinuation on 07/25 (see above) * Discussed with patient importance of outpatient adherence and potential serious consequences of ongoing non-adherence. Also noted that certified lactation educator would likely see him while here - patient was accepting of this * Currently on insulin drip at 2.8 units/hr, but anion gap closed and CO2 almost wnl. Discussed w Dr. Anglin - will order diet and discontinue dextrose- containing IVF. Agreed transition to basal/bolus is reasonable at this time * Will not use reported outpatient regimen to determine Lantus dose - will instead use weight-based moderate stress estimates. If this is insufficient to transition off drip, will provide additional Lantus this evening * Higher goal range selected 2nd significantly elevated HbA1c and therefore high likelihood that patient will experience s/sx of hypoglycemia at euglycemic (or even mildly hyperglycemic) BSG's PLAN FOR INPATIENT GLYCEMIC CONTROL: * Continue insulin drip until rate less than 1 unit/hr and BSG's less than 180 mg/dL x2 consecutive checks * Basal insulin * Lantus 24 units SQ x1 now. May require additional Lantus this evening depending on trend in insulin drip rates. * Bolus insulin * NovoLog per scale ACHS or Q6hrs while NPO - with two overnight checks * Goal Range: Low 120 mg/dL - High 160 mg/dL * Correction Factor: 30 mg/dL/unit * Nutritional / Prandial insulin per carb ratio of 1 unit per 10 grams CHO consumed PLAN FOR DISCHARGE: * Patient will need to get access to a meter. Recommend checking ACHS * Basaglar with dinner - dose dependent on inpatient BSG trend * Novolog ACHS - CHO ratio PLUS sliding scale if BSG elevated - doses dependent on inpatient BSG trend * Stress importance of adherence
[2020-07-29] MEDS ORDERED: INSULIN GLARGINE SOLOSTAR 100 UNITS/ML 3 ML PEN SC ONE (10:15)
--- NOTE | 2020-07-29 10:25 | Gastrointestinal Consultation ---
Date of Consultation July 29, 2020 Assessment & Plan (1) Vomiting: With possible episode of dark bilious vs bloody emesis. -Continue to treat DKA per primary team. -Protonix 40 mg IV BID. -Carafate 1 gm four times daily before meals and at bedtime for 10 days. -Can consider EGD in the future if symptoms worsen/return. Thank you for allowing us to participate in the care of this patient. If you should have any further questions or concerns, do not hesitate to contact us at extension [phone] or [phone]. Supervising Physician Co-Signing Physician Notes Agree with Pam Doshi, PAC Abd: Soft, NT, ND, +BS No further episodes of emesis Continue supportive care Continue PPI therapy No plans for invasive testing History of Present Illness Reason for Consultation: "Dark emesis" Attending Physician: Manuel Anglin MD History of Present Illness Patient is a 25 yo type 1 diabetic with significant noncompliance with his insulin since his wedding on Monday. He is currently admitted with DKA. He notes that prior to his admission, he began vomiting. He notes that after vomiting several times, he noted a dark brown color. No bright red blood. He denies melena. He reports his abdominal muscles hurt after vomiting. He denies a previous history of GERD or other GI issues. No family history of IBD or GI malignancy. He does acknowledge occasional NSAID use, but nothing consistent. H/H presently 13.7/40.3. He offers no further complaints at present. Allergies Allergy/AdvReac Type Severity Reaction Status Date / Time No Known Allergies Allergy Verified 07/28/20 18:09 Home Medications Home Medications Medication Instructions Recorded Confirmed Type insulin aspart U-100 [Novolog 50 unit SUBCUT QID 07/28/20 07/28/20 History Flexpen U-100 Insulin] insulin glargine [Basaglar KwikPen 50 unit SUBCUT QPM 07/28/20 07/28/20 History U-100 Insulin] losartan 25 mg PO DAILY 07/28/20 07/28/20 History metoprolol succinate 25 mg PO DAILY 07/28/20 07/28/20 History Patient History Medical History Abnormal ejaculation Abscess Osteomyelitis due to secondary diabetes Uncontrolled type 1 diabetes mellitus, with long-term current use of insulin Urachal remnant UTI (urinary tract infection) Surgical History History of tonsillectomy and adenoidectomy Social History Smoking Status: Never smoker Hx Alcohol Use: No Hx Substance Use: No Preferred Language: British Communication Ability: Effective Beliefs That Will Affect Care: None Current Living Situation: Parent Feels Safe at Home: Yes Assistive Devices: Glasses Review of Systems Constitutional: no fever and no chills Respiratory: no cough and no dyspnea Cardiovascular: no chest pain Gastrointestinal: + abdominal pain and + vomiting (now resolved); no change in bowel habits and no melena Integumentary: no problem reported Psychiatric: no problem reported Endocrine: + fatigue Hematologic / Lymphatic: no unexplained weight loss Physical Exam Constitutional: well developed Neck: normal visual inspection Respiratory: normal respiratory effort Cardiovascular: Extremities: no edema Gastrointestinal (Abdomen): Inspection/Auscultation: abdomen normal to inspection Musculoskeletal: Head/Neck/Chest: normocephalic Skin: no rashes, warm and dry Psychiatric: A+Ox3, euthymic affect Results & Data ([facility]) Vital Signs (Past 12 Hours) Vital Signs Temp Pulse Pulse Resp BP Pulse Ox 07/29/20 08:10 36.7 C 99 H 20 102/63 98 07/29/20 08:04 100 H 07/29/20 03:39 36.3 C L 101 H 17 122/76 97 07/29/20 00:16 36.7 C 111 H 17 135/80 96 PG Care Time/CCT Total # of Minutes Spent Total Time Spent with Patient: Total time spent is greater than 50% in coordination of care (as documented) at patient's floor/unit and/or counseling patient: Coding Level of Care Code 11100 Inpt Consult Level 4 Diagnoses Vomiting R11.2 Nausea presence: with nausea Vomiting Intractability: non-intractable Vomiting type: unspecified (1) Vomiting Nausea presence: with nausea Vomiting Intractability: non-intractable Vomiting type: unspecified Qualified Code(s): R11.2 - Nausea with vomiting, unspecified
[2020-07-29] MEDS ORDERED: [UNRECOGNIZED DRUG - REMARK] ONE (10:30)
[2020-07-29] MEDS ORDERED: INSULIN ASPART 100 UNITS/ML 3 ML PEN SC ONE (11:30)
[2020-07-29] MEDS: SUCRALFATE 1 GM/10 ML UDC PO SCH ×3 (12:18→20:13)
[2020-07-29 13:08] LABS: BUN Creatinine Ratio 18.7 (10-20); Blood Urea Nitrogen 14 mg/dl (7-18); Calcium 7.8 mg/dl (8.5-10.1); Carbon Dioxide 19 mmol/L (21-32); Chloride 114 mmol/L (98-107); Creatinine Clr Calc Pharmacy 157.4 ml/min; Est GFR (African American) > 150.0; Est GFR (Non-African American) 130.7; Glucose 156 mg/dl (70-99); Magnesium 1.7 mg/dl (1.8-2.4); Potassium 3.5 mmol/L (3.5-5.1); Sodium 139 mmol/L (136-145)
[2020-07-29 13:21] LABS: Phosphorus 0.7 mg/dl (2.5-4.9)
[2020-07-29] MEDS ORDERED: MAGNESIUM SULFATE / D5W 1 GM/100 ML BAG IV ONE (13:45)
[2020-07-29] MEDS ORDERED: POTASSIUM PHOSPHATE 24 MMOL in SODIUM CHLORIDE 0.9% 500 ML IV ONE (13:45)
--- NOTE | 2020-07-29 16:41 | Hospitalist Progress Note ---
Date of Service July 29, 2020 Assessment & Plan (1) DKA (diabetic ketoacidoses): Normal insulin regimen is 50 units of Novolog for breakfast, lunch, dinner, and bedtime, plus 50 units of glargine at dinner. Hasn't taken ANY insulin since Monday evening. - DKA protocol with glycemic pharmacist consulted anion gap is closed transitioning from insulin drip allowing to eat food as no plans on gastrointestinal intervention given concern for emesis - A1c 14.2 suggesting poor compliance as an outpatient - clinical staff educator consulted as he clearly needs counseling and new glucose meter (2) Hematemesis: Starting Monday morning, had several episodes of dark emesis. It honestly looks more brownish to me and possibly feculent or bilious compared to coffee- grounds. - PPI bolus and gtt started in the ED -> transition to twice daily PPI - Blood transfusion consent signed and in the chart -Consultation add Carafate (3) Hypertension: Given volume depletion, BP was actually low rather than high on arrival. After 2L IV fluids, his BP was normal at 130/80. - Hold BP meds (4) Dyslipidemia: Not on statin at baseline. - Outpatient work-up (5) DVT prophylaxis: SCDs - Low DVT risk per admission calculator Admission and Anticipated Discharge Date Admission Date: July 28, 2020 Subjective Patient was seen in his room he is feeling better he does admit to losing his glucose meter. He also says he is almost out of insulin. He sees Dr. Stanley typically provides his insulin medication for him. He states he is only been on insulin for approximately 2 [address] Troncoso note he was diagnosed January 2018 after a great toe infection with concerning for osteomyelitis. Despite the patient has had this for most 2 years he seems to lack significant insight into his diabetic care. Subsequently we are going to have the patient see clinical staff educator get him a new glucose meter and see if we can have a better home regimen for him Review of Systems Review of Systems: Mild distress and fatigue no headache, blurry or double vision no speech or swallowing issues no chest pain, pressure or palpitations no shortness of breath, cough or wheezes no abdominal pain, nausea or vomiting, diarrhea or constipation no dysuria, hematuria or frequency no focal joint pain or swelling no back pain, CVA tenderness or radicular pain no bruising, bleeding or rashes no focal signs of weakness or numbness or altered sensation no complaints of anxiety or depression. Physical Exam Physical Exam: The patient appeared well nourished and normally developed. Vital signs as documented. Head exam is normocephalic atraumatic no scleral icterus Neck is without JVD, thyromegaly, or carotid bruits. Lungs are clear to auscultation, no focal loss of breath sounds Cardiac exam, Rhythm is regular.. No murmurs, rubs or gallops. Abdominal exam reveals normal bowel sounds, soft non tender, no masses Extremities are nonedematous and both pedal pulses are present Neurologic exam is alert and oriented, no focal loss of strength or sensation Skin is without bruises or rashes Psychologically is without concerns for anxiety or depression. Results & Data Results & Data ([facility]) Vital Signs (Past 12 Hours) Vital Signs Temp Pulse Pulse Resp BP Pulse Ox 07/29/20 16:22 98.1 F 97 H 20 125/83 97 07/29/20 11:11 97.7 F 97 H 125/82 99 07/29/20 08:10 98.1 F 99 H 20 102/63 98 07/29/20 08:04 100 H PG Care Time/CCT Total # of Minutes Spent Total Time Spent with Patient: Total time spent is greater than 50% in coordination of care (as documented) at patient's floor/unit and/or counseling patient: Coding Level of Care Code 12138 Subseq Hosp Care Lvl 3 Diagnoses DKA (diabetic ketoacidoses) E13.10 Diabetes mellitus complication detail: without coma Diabetes mellitus type: other specified (including VASQUEZ) Hematemesis K92.0 Nausea presence: with nausea Hypertension I10 Dyslipidemia E78.5 DVT prophylaxis Z29.9 (1) DKA (diabetic ketoacidoses) Diabetes mellitus complication detail: without coma Diabetes mellitus type: other specified (including VASQUEZ) Qualified Code(s): E13.10 - Other specified diabetes mellitus with ketoacidosis without coma (2) Hematemesis Nausea presence: with nausea Qualified Code(s): K92.0 - Hematemesis
[2020-07-29 16:53] LABS: BUN Creatinine Ratio 18.2 (10-20); Blood Urea Nitrogen 11 mg/dl (7-18); Calcium 7.5 mg/dl (8.5-10.1); Carbon Dioxide 20 mmol/L (21-32); Chloride 113 mmol/L (98-107); Creatinine Clr Calc Pharmacy 194.7 ml/min; Est GFR (African American) > 150.0; Est GFR (Non-African American) 142.7; Glucose 118 mg/dl (70-99); Magnesium 2.1 mg/dl (1.8-2.4); Potassium 3.6 mmol/L (3.5-5.1); Sodium 139 mmol/L (136-145)
[2020-07-29 17:10] LABS: Phosphorus 1.5 mg/dl (2.5-4.9)
[2020-07-29] MEDS: INSULIN REGULAR 250 UNITS in SODIUM CHLORIDE 0.9% 247.5 ML IV SCH (17:44)
[2020-07-29] MEDS: PANTOprazole 40 MG TAB PO SCH (20:13)
[2020-07-29] MEDS: INSULIN GLARGINE SOLOSTAR 100 UNITS/ML 3 ML PEN SC SCH (22:33)
[2020-07-30] MEDS: INSULIN ASPART 100 UNITS/ML 3 ML PEN SC SCH ×5 (00:09→16:49)
[2020-07-30 09:35] LABS: BUN Creatinine Ratio 12.8 (10-20); Blood Urea Nitrogen 7 mg/dl (7-18); Calcium 8.3 mg/dl (8.5-10.1); Carbon Dioxide 21 mmol/L (21-32); Chloride 109 mmol/L (98-107); Creatinine Clr Calc Pharmacy 220.9 ml/min; Est GFR (African American) > 150.0; Est GFR (Non-African American) > 150.0; Glucose 221 mg/dl (70-99); Magnesium 1.9 mg/dl (1.8-2.4); Potassium 3.6 mmol/L (3.5-5.1); Sodium 137 mmol/L (136-145)
[2020-07-30 09:50] LABS: Phosphorus 1.5 mg/dl (2.5-4.9)
[2020-07-30] MEDS: INSULIN GLARGINE SOLOSTAR 100 UNITS/ML 3 ML PEN SC SCH (10:14)
[2020-07-30] MEDS: PANTOprazole 40 MG TAB PO SCH (10:16)
[2020-07-30] MEDS: SUCRALFATE 1 GM/10 ML UDC PO SCH ×3 (10:16→16:47)
[2020-07-30] MEDS ORDERED: POTASSIUM PHOS 3 MMOL/1 ML INFUSION IV STA (10:33)
[2020-07-30] MEDS ORDERED: POTASSIUM PHOSPHATE 21 MMOL in SODIUM CHLORIDE 0.9% 500 ML IV ONE (10:45)
--- NOTE | 2020-07-30 12:58 | Pharmacy Report ---
Pharmacy Glycemic Short Note 2 - Date of Service July 30, 2020 - Glycemic Short BSG Results (Last 24 hours): 07/29/20 07/29/20 07/29/20 12:33 13:14 15:10 Glucose 156 H POC Glucose 174 H 120 H 07/29/20 07/29/20 07/29/20 16:26 16:28 17:24 Glucose 118 H POC Glucose 114 H 119 H 07/29/20 07/29/20 07/29/20 18:27 19:10 20:03 Glucose POC Glucose 136 H 131 H 130 H 07/29/20 07/29/20 07/29/20 21:28 22:27 23:14 Glucose POC Glucose 144 H 127 H 123 H 07/30/20 07/30/20 07/30/20 00:07 04:00 07:53 Glucose POC Glucose 121 H 126 H 148 H 07/30/20 07/30/20 09:04 11:40 Glucose 221 H POC Glucose 208 H OUTPATIENT ANTIDIABETIC REGIMEN: Clarified with patient during conversation 07/29 AM * Basaglar 50 units SC with dinner (patient reports he only *takes* about twice a week) * Novolog ACHS * Carb ratio 5 g CHO/unit (patient reports he only *takes* about six doses per week) * Correctional insulin for elevated BSG's, but patient has not taken in well over a month because he lost his meter ASSESSMENT: 07/30 * Pt transitioned off of IV insulin infusion yesterday to SQ basal bolus insulin regiment with Lantus + NovoLog. Dosing based on weight rather than outpatient dosing d/t issues of non-compliance * AM fasting BSG in goal range this AM after 36 units of basal insulin with Lantus. Typically, insulin resistance persists ~24hrs after resolution of DKA. Will empirically decrease dosing by ~25% to prevent a "low" tomorrow AM * Lantus is currently being dosed BID - will work back to a Q24hr dosing schedule (given with dinner) since this is how patient takes Lantus as an outpatient. * Pre-lunch postprandial BSG elevated. Will tighten CHO ratio slightly. 07/29 * 25 yo M with T1DM admitted with DKA on 07/28 2nd lack of insulin since 07/24 (of note - patient got on 07/25). Significant outpatient non- adherence also noted prior to abrupt discontinuation on 07/25 (see above) * Discussed with patient importance of outpatient adherence and potential serious consequences of ongoing non-adherence. Also noted that clinical staff educator would likely see him while here - patient was accepting of this * Currently on insulin drip at 2.8 units/hr, but anion gap closed and CO2 almost wnl. Discussed w Dr. Anglin - will order diet and discontinue dextrose- containing IVF. Agreed transition to basal/bolus is reasonable at this time * Will not use reported outpatient regimen to determine Lantus dose - will instead use weight-based moderate stress estimates. If this is insufficient to transition off drip, will provide additional Lantus this evening * Higher goal range selected 2nd significantly elevated HbA1c and therefore high likelihood that patient will experience s/sx of hypoglycemia at euglycemic (or even mildly hyperglycemic) BSG's PLAN FOR INPATIENT GLYCEMIC CONTROL: * Basal insulin * Transition from BID to Q24hr Lantus. Lantus 12 units given this AM, will give 16 units tonight with dinner and then resume Lantus 24 units SQ Q24hrs starting 07/31. Gradually tapering Lantus dosing since insulin resistance from DKA resolving. * Bolus insulin * NovoLog per scale ACHS or Q6hrs while NPO * Goal Range: Low 110 mg/dL - High 140 mg/dL * Correction Factor: 30 mg/dL/unit * Nutritional / Prandial insulin per carb ratio of 1 unit per 9 grams CHO consumed PLAN FOR DISCHARGE: * Patient will need to get access to a meter. Recommend checking ACHS * Basaglar with dinner - dose dependent on inpatient BSG trend * Novolog ACHS - CHO ratio PLUS sliding scale if BSG elevated - doses dependent on inpatient BSG trend * Stress importance of adherence
--- NOTE | 2020-07-30 13:54 | Discharge Summary ---
Date of Service July 30, 2020 Admission HPI Per Admitting Provider 25yo M w/ hx of DM1 and HTN who presents with DKA and possible hematemesis. He reports that he got on Monday. He did not take ANY insulin on Monday. He cannot really explain why other than he thought he wouldn't eat a lot the rest of the day. On Monday for breakfast, he ate pancakes and eggs with his best man. He got and noted that around 2pm, he started to feel funny and have some subjective chills. He felt worse on Monday and started to have large numbers of emesis. At first, it was just what he had eaten or drank, but on Monday, he had one episode that had a slight amount of dark material in it and then another that had significant black/brown material. He reports it is possible he had some "coffee ground" specks in it, but is not sure. Other than the chills he mentioned starting on Monday, he has no other positive ROS. Principal Diagnosis Diabetic ketoacidosis Hypophosphatemia Possible hematemesis Discharge Exam The patient appeared well Vital signs as documented. Lungs are clear to auscultation and appear unlabored Cardiac exam, Rhythm is regular.. No murmurs, rubs or gallops. Abdominal exam reveals normal bowel sounds, soft non tender, no masses Extremities are nonedematous and both pedal pulses are normal. Neurologic exam is alert and oriented, no focal loss of strength or sensation Skin is without bruises or rashes Psychologically is without concerns for anxiety or depression. Discharge Data Allergies Allergy/AdvReac Type Severity Reaction Status Date / Time No Known Allergies Allergy Verified 07/28/20 18:09 Consultations 07/28/20 17:19 ED Decision to Admit Stat 07/28/20 19:58 Consult Gastroenterology Routine Ordered Studies 07/28/20 16:12 CT abd pelvis IV con only Stat Hospital Course (1) DKA (diabetic ketoacidoses): Reportedly normal insulin regimen is 50 units of Novolog for breakfast, lunch, dinner, and bedtime, plus 50 units of glargine at dinner. n gastrointestinal intervention given concern for emesis - A1c 14.2 suggesting poor compliance as an outpatient - clinical informatics educator consulted will provide new glucose meter P.m. basal bolus insulin with close outpatient follow-up. Consider outpatient nutritional referral for dietary counseling (2) Hematemesis: GI has seen the patient his hemoglobin stable he did receive Carafate while in the hospital as he had no additional vomiting hematemesis or blood loss be on twice daily PPI for 6 weeks (3) Hypertension: Some typical home medications (4) Dyslipidemia: Patient typically not on a statin difficult to assess his cholesterol readings given his likely dietary indiscretion and poor diabetic care compliance once diet better care is under better control would recommend fasting outpatient lipid panel (5) Hypophosphatemia: Patient require parenteral repletion while in the hospital likely due to his poor nutritional intake and diabetic ketoacidosis Total Time Total Time Spent Total Time Spent (In Minutes): It required greater than 30 minutes to prepare this patient for discharge Discharge Plan Discharge Items Patient Disposition: Home - Self-Care Reason For Visit: DKA, DARK EMESIS Discharge Diagnosis: diabetic ketoacidosis low phosphorous levels Activity: Resume your previous activity Non-emergency contact: Primary Care Provider and Specialist Call non-emergency contact if: you have any medication questions Follow-up/Referrals: Bhavya Stanley MD [Primary Care Provider] - Diet: Carb Consistent or DM2 Addtl Attending Provider Instructions: You have been admitted because of uncontrolled blood glucose and chemical changes to your bloodstream that could endanger your life. It is very important that you do not miss place your glucose meter you record her glucose measurements and provide additional insulin based upon the glucose measurements and take all of this data to your family doctor or industrial education teacher to continue to have good control of your diabetes. Without good control of your diabetes your life will be shortened, you may develop complications with your vision your heart your brain kidneys and your peripheral circulation and nerves which could endanger your hands and feet. Is very important that you continue to watch her diet being conservative with your carbohydrate intake and if you have questions about your diet ask your family physician for diet [place] consultation for further nutritional instruction Measure your premeal glucose. For every 20 the measurement is over 140 add 1 unit of regular insulin to be administered. For every 8 g of carbohydrates you are consuming add 1 unit of regular insulin to be administered Pending Studies at Discharge: No Stand-Alone Forms: [employer], Work/School Release (Inpt), Smoking Cessation Medications and DC Order Prescriptions: New pantoprazole 40 mg Tablet,Delayed Release (Dr/Ec) 40 mg PO BID Qty: 84 RF: 0 insulin aspart U-100 [Novolog Flexpen U-100 Insulin] 100 unit/mL (3 mL) insulin pen 1 unit SUBCUT QID Qty: 15 RF: 0 Basaglar KwikPen U-100 Insulin 100 unit/mL (3 mL) insulin pen 24 unit SUBCUT QPM Qty: 15 RF: 4 Continued metoprolol succinate 25 mg tablet extended release 24 hr 25 mg PO DAILY RF: 0 losartan 25 mg tablet 25 mg PO DAILY RF: 0 Discharge Orders: Discharge Order (Routine); Ordered 07/30/20 Ordered By: Manuel Anglin Admission Data Admit Date/Time: 07/28/20 17:59 Attending Provider: Manuel Anglin Admit Provider: Kristopher Hurtado Primary Care Provider: Bhavya Stanley Other Providers: Kristopher Hurtado ; Flaco Romano Other Interventions: Discharge Summary Assessment (RN) Last Done: 07/30/20 16:32 Coding Level of Care Code D/C Day Management >30 mins Diagnoses DKA (diabetic ketoacidoses) E13.10 Diabetes mellitus complication detail: without coma Diabetes mellitus type: other specified (including VASQUEZ) Hematemesis K92.0 Nausea presence: with nausea Hypertension I10 Dyslipidemia E78.5 Hypophosphatemia E83.39
[2020-07-30] MEDS ORDERED: INSULIN GLARGINE SOLOSTAR 100 UNITS/ML 3 ML PEN SC SCH (16:30)
[2020-07-31] MEDS ORDERED: INSULIN GLARGINE SOLOSTAR 100 UNITS/ML 3 ML PEN SC SCH (12:00)
== END 2020-07-30 18:15 | disposition home or self-care (01) | DRG 638 ==
LOC: ED 14:56 → 2S 17:59 → SUATTDRO 17:59 → 2S 19:15

== ENCOUNTER 2021-09-14 10:35 | Inpatient (IN) ==
[2021-09-14] MEDS ORDERED: VANCOMYCIN HCL 1,500 MG in SODIUM CHLORIDE 0.9% 500 ML IV STA (12:04)
[2021-09-14] MEDS ORDERED: VANCOMYCIN CONSULT ACTIVE PRN ×2 (12:04→22:44)
--- NOTE | 2021-09-14 12:08 | Emergency Department Note ---
History of Present Illness General Chief complaint: Toe Injury/Pain Stated complaint: WOUND CARE CLINIC SENT,TOE INFECTION Time Seen by Provider: 09/14/21 11:52 History of Present Illness Maximum Pain Intensity: 3 26-year-old male presents emergency department after he was seen at the wound care clinic today and had a debridement of his right toe infection. Patient states that 2 weeks ago he started with a scab on the bottom of his right great toe and then developed into an area that was draining. Patient has been evaluated by wound care center for the past 2 weeks. He states today they injected his right great toe with lidocaine and they did a debridement and sent him for further evaluation for possible cellulitis and infection in that right great toe. Patient is a type I diabetic he states his blood sugar this morning was 320 has no other complaints such as nausea vomiting or fever. Patient states that the right great toe area of erythema has not worsened over the past 2 weeks. Home Medications Medication Instructions Recorded Confirmed Type blood sugar diagnostic (OneTouch #10 ea 09/03/20 09/14/21 History Verio test strips) pen needle, diabetic 32 gauge x #400 ea 09/03/20 09/14/21 Rx /32" (ReliOn Pen [place]) albuterol sulfate 90 mcg/actuation 2 puff INHALATION Q6H PRN 09/06/21 09/14/21 History aerosol inhaler rosuvastatin 5 mg tablet 5 mg PO QAM 09/06/21 09/14/21 History escitalopram oxalate 10 mg tablet 10 mg PO QDL 09/14/21 09/14/21 History insulin aspart U-100 100 unit/mL 20 unit SUBCUT QID ml 09/14/21 09/14/21 History (3 mL) subcutaneous pen (Novolog Flexpen U-100 Insulin aspart) insulin glargine 100 unit/mL (3 50 unit SUBCUT HS ml 09/14/21 09/14/21 History mL) subcutaneous pen (Basaglar KwikPen U-100 Insulin) losartan 50 mg tablet 100 mg PO QAM 09/14/21 09/14/21 History Allergies Allergy/AdvReac Type Severity Reaction Status Date / Time ceftriaxone [From Rocephin] Allergy Verified 09/14/21 13:26 adhesive AdvReac rash Verified 09/14/21 13:26 hay Allergy Unknown Unknown Uncoded 09/14/21 13:26 Past Med/Surg History Medical History Abnormal ejaculation Abscess Osteomyelitis due to secondary diabetes Uncontrolled type 1 diabetes mellitus, with long-term current use of insulin Urachal remnant UTI (urinary tract infection) Surgical History History of tonsillectomy and adenoidectomy Family History Father CHF (congestive heart failure) Diabetes Mother Diabetes Social History Smoking Status: Heavy tobacco smoker Tobacco Type: Smokeless Tobacco (Dip or Chew) Hx Alcohol Use: Yes Alcohol type: beer Alcohol Intake Frequency: Monthly or Less Hx Substance Use: No Preferred Language: [place]agu[place] Communication Ability: Effective Beliefs That Will Affect Care: None marital status: marital status details: , live with and son Current Living Situation: Parent and Family current occupational status: employed 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 [employer] How many Children do You have: 1 How many Children do You have Comment: 16 month old Feels Safe at Home: Yes Assistive Devices: Glasses Review of Systems A total of 10 systems reviewed and were otherwise negative Musculoskeletal: no joint pain Integumentary: + skin ulcer and + erythema Physical Exam Vital Signs Vital Signs - 24 hr 09/14/21 10:44 09/14/21 12:42 Temperature 36.1 C L Temperature Source Temporal Artery Scan Pulse Rate 102 H Pulse Rate [Radial] 88 Pulse Rhythm [Radial] Regular Pulse Strength [Radial] Normal Respiratory Rate 16 20 Respiratory Effort / Characteristics Non-Labored Respiratory Depth Normal Blood Pressure 166/105 H Blood Pressure [Left Arm] 137/95 Blood Pressure Mean 125 Blood Pressure Mean [Left Arm] 109 Blood Pressure Position [Left Arm] Lying Pulse Oximetry 98 98 Oxygen Delivery Method Room Air Room Air Sepsis Recent Fever Within 48 Hours No Sepsis New/Unexplained Change in Mental Status No Sepsis Action Taken by Nursing No Action Required VITAL SIGNS - Vital signs and nursing notes were reviewed. GENERAL -26-year-old male appearing his stated age who is in no acute distress. Communicates well with provider and answers questions appropriately. SKIN - Without rashes. HEAD - NC/AT. EYES - PERRL with EOMI bilaterally. Sclera anicteric. Palpebral conjunctiva pink and moist with no injection noted. EARS - No deformities of external structures noted on gross examination bilaterally. NOSE - Midline and without cyanosis. No epistaxis or purulent drainage noted. Septum midline without deviation or septal hematoma noted. MOUTH/OROPHARYNX - Without perioral cyanosis. NECK - Neck with FROM. Supple to palpation. No nuchal rigidity. LUNGS - Chest wall symmetric without accessory muscle use, intercostals retractions, or central cyanosis. Normal vesicular breath sounds CTA B/L. No wheezes, rales, or rhonchi appreciated. CARDIAC - RRR with S1/S2. No murmur, rubs, or gallops appreciated. ABDOMEN - Abdominal contour soft without pulsations or visible masses. BS normoactive all four quadrants. No tenderness, palpable masses, hepatosplenomegaly, or ascites noted. EXTREMITIES - No clubbing or peripheral cyanosis. Bilateral lower extremity edema left greater than right; knee calf is nontender bilaterally +5/5 strength noted in UE/LE bilaterally. Left foot exam there is the left great toe with an area of erythema and obvious eschar the toenail is removed there is mild area of purulence erythema and ecchymosis that extends over to the second toe NEUROLOGIC - Cranial nerves II through XII grossly intact. Sensory intact to light touch throughout. PSYCH - A&Ox3 and cooperates fully with examiner. Pt is very pleasant and interacts well with examiner. Course Course This patient was started on IV vancomycin, the case was discussed with the hospitalist for admission for suspected cellulitis versus osteomyelitis of the left great toe Administered Medications Miscellaneous Information (Vancomycin Consult Active) 1 ea N/A UD PRN PRN Reason: Consult Stop: 10/14/21 12:03 Last Admin: 09/14/21 14:52 Dose: 1 ea Documented by: Discontinued Medications Vancomycin HCl 1,500 mg/ (Sodium Chloride) 530 mls @ 200 mls/hr IV NOW STA; Protocol Stop: 09/14/21 14:42 Last Admin: 09/14/21 12:38 Dose: 200 mls/hr Documented by: [id number] Sodium Chloride (Nss 1000ml) 1,000 mls @ 999 mls/hr IV .Q1H1M ONE Stop: 09/14/21 14:48 Last Admin: 09/14/21 15:01 Dose: 999 mls/hr Documented by: Insulin Human Regular (Insulin Human Regular) 12 units SC NOW ONE Stop: 09/14/21 14:13 Last Admin: 09/14/21 15:01 Dose: 12 units Documented by: Insulin Human Regular (Novolin-R Insulin Per Unit Charge) Confirm Administered Dose 12 units .ROUTE .STK-MED ONE Stop: 09/14/21 14:55 Last Admin: 09/14/21 15:01 Dose: Not Given Documented by: Medical Decision Making Medical Records Attestation: I reviewed the patient's medical records. Home Medications Current Medication List: was personally reviewed by me Laboratory Data Result diagrams: 09/14/21 12:38 09/14/21 12:38 Lab Results 09/14/21 09/14/21 Range/Units 12:38 12:38 WBC 10.34 (4.8-10.8) K/uL RBC 4.45 L (4.7-6.1) M/uL Hgb 13.9 L (14.0-18.0) g/dL Hct 39.0 L (42-52) % MCV 87.6 (80-100) fL MCH 31.2 (25-34) pg MCHC 35.6 (32-36) g/dL RDW Std Deviation 41.5 (36.4-46.3) fL RDW Coeff of Annie 12.9 (11.5-14.5) % Plt Count 496 H (130-400) K/uL MPV 10.0 (7.4-10.4) fL Immature Gran % (Auto) 0.5 % Neut % (Auto) 62.5 % Lymph % (Auto) 29.6 % [place] % (Auto) 4.5 % Eos % (Auto) 2.3 % Baso % (Auto) 0.6 % Neut # (Auto) 6.46 (1.4-6.5) K/uL Lymph # (Auto) 3.06 (1.2-3.4) K/uL [place] # (Auto) 0.47 (0.11-0.59) K/uL Eos # (Auto) 0.24 (0-0.5) K/uL Baso # (Auto) 0.06 (0-0.2) K/uL Immature Gran # (Auto) 0.05 H (0.00-0.02) K/uL Sodium 137 (136-145) mmol/L Potassium 4.5 (3.5-5.1) mmol/L Chloride 107 (98-107) mmol/L Carbon Dioxide 24 (21-32) mmol/L Anion Gap 6.0 (3-11) BUN 18 (7-18) mg/dl Creatinine 0.99 (0.6-1.4) mg/dl Est Cr Clr Drug Dosing 115.1 ml/min Est GFR ( Amer) 123.0 ml/min Est GFR (Non-Af Amer) 106.2 ml/min BUN/Creatinine Ratio 17.8 (10-20) Glucose 381 H* (70-99) mg/dl Calcium 9.4 (8.5-10.1) mg/dl Beta-Hydroxybutyric Acd 3.99 H (0.2-2.81) mg/dl Imaging Data Radiologist's Impression: Foot X-Ray 09/14/21 10:48 XR foot LT min 3V routine CLINICAL HISTORY: Left great toe pain, swelling, erythema and drainage. Missing toenail. COMPARISON STUDY: 04/05/2018 TECHNIQUE: 4 left foot views FINDINGS: Bones: Compared to the previous examination, there is localized osteopenia involving the great toe when compared to the remaining toes. There is no evidence for an acute fracture or dislocation. However, subchondral lucencies are seen at the IP joint of the great toe on the current study. These are suspicious for small erosions. While these could relate to degenerative change, the presence of septic arthritis or osteomyelitis cannot be excluded. No other sites of cortical destruction are identified. There is no lytic or blastic lesion. Joints: There is now moderate narrowing of the first MTP joint. The remaining joint spaces are maintained. The bones are in anatomic alignment. Soft tissues: There is diffuse soft tissue swelling of the great toe with no definite air seen within the soft tissues. There is no radiopaque foreign body. IMPRESSION: Localized osteopenia of the great toe with subchondral lucency/erosion is present at the IP joint of the great toe as described above. While the findings could relate to osteoarthritis, the presence of septic arthritis or osteomyelitis cannot be excluded. There is also diffuse soft tissue swelling of the great toe. ACT 112: Negative or not required by law. Electronically signed by: Steven Bustamante M.D. 09/14/2021 12:21 PM MDM Narrative Medical decision making differential diagnosis cellulitis early osteomyelitis diabetic foot ulcer, uncontrolled DM Impression & Plan Diabetic ulcer of left great toe, Cellulitis Discharge Plan Visit Data Chief Complaint: Toe Injury/Pain Stated Complaint: WOUND CARE CLINIC SENT,TOE INFECTION ED Provider: Donnie Stewart Discharge Problem: Diabetic ulcer of left great toe, Cellulitis Patient Disposition: Being Evaluated by Hospitalist Forms Stand Alone Forms: My [facility] [facility] Prescriptions Prescriptions: No Action rosuvastatin 5 mg tablet 5 mg PO QAM RF: 0 albuterol sulfate 90 mcg/actuation HFA aerosol inhaler 2 puff inhalation Q6H PRN (Reason: Shortness Of Breath) RF: 0 (DME) pen needle, diabetic [ReliOn Pen [place]] 32 gauge x 5/32" needle See Rx Instructions .ROUTE .MEDSUPPLY Qty: 400 RF: 3 (DME) OneTouch Verio test strips Strip See Rx Instructions .ROUTE .MEDSUPPLY Qty: 10 RF: 0 insulin aspart U-100 [Novolog Flexpen U-100 Insulin] 100 unit/mL (3 mL) insulin pen 20 unit SUBCUT QID RF: 0 Basaglar KwikPen U-100 Insulin 100 unit/mL (3 mL) insulin pen 50 unit subcut HS RF: 0 escitalopram oxalate 10 mg tablet 10 mg PO QDL RF: 0 losartan 50 mg tablet 100 mg PO QAM RF: 0 Referrals Referrals: Bhavya Stanley MD [Primary Care Provider] - Discharge Problem: Cellulitis Qualifiers: Site of cellulitis of extremity: toe
--- NOTE | 2021-09-14 12:22 | XRay Report ---
XR foot LT min 3V routine CLINICAL HISTORY: Left great toe pain, swelling, erythema and drainage. Missing toenail. COMPARISON STUDY: 04/05/2018 TECHNIQUE: 4 left foot views FINDINGS: Bones: Compared to the previous examination, there is localized osteopenia involving the great toe wh en compared to the remaining toes. There is no evidence for an acute fracture or dislocation. However , subchondral lucencies are seen at the IP joint of the great toe on the current study. These are alisia picious for small erosions. While these could relate to degenerative change, the presence of septic a rthritis or osteomyelitis cannot be excluded. No other sites of cortical destruction are identified. There is no lytic or blastic lesion. Joints: There is now moderate narrowing of the first MTP joint. The remaining joint spaces are mainta ined. The bones are in anatomic alignment. Soft tissues: There is diffuse soft tissue swelling of the great toe with no definite air seen within the soft tissues. There is no radiopaque foreign body. IMPRESSION: Localized osteopenia of the great toe with subchondral lucency/erosion is present at the IP joint of the great toe as described above. While the findings could relate to osteoarthritis, the presence of septic arthritis or osteomyelitis cannot be excluded. There is also diffuse soft tissue s welling of the great toe. ACT 112: Negative or not required by law. Electronically signed by: Steven Bustamante M.D. 09/14/2021 12:21 PM
[2021-09-14 12:54] LABS: Basophils # (auto) 0.06 K/uL (0-0.2); Basophils % (auto) 0.6 %; Eosinophils # (auto) 0.24 K/uL (0-0.5); Eosinophils % (auto) 2.3 %; Hemoglobin 13.9 g/dL (14.0-18.0); Immature Granulocytes # (auto) 0.05 K/uL (0.00-0.02); Immature Granulocytes % (auto) 0.5 %; Lymphocytes # (auto) 3.06 K/uL (1.2-3.4); Lymphocytes % (auto) 29.6 %; Mean Corpuscular Hemoglobin 31.2 pg (25-34); Mean Corpuscular Hgb Conc 35.6 g/dL (32-36); Mean Corpuscular Volume 87.6 fL (80-100); Monocytes # (auto) 0.47 K/uL (0.11-0.59); Monocytes % (auto) 4.5 %; Neutrophils # (auto) 6.46 K/uL (1.4-6.5); Neutrophils % (auto) 62.5 %; Platelet Count 496 K/uL (130-400); RDW Coefficient of Variation 12.9 % (11.5-14.5); RDW Standard Deviation 41.5 fL (36.4-46.3); Red Blood Count 4.45 M/uL (4.7-6.1); White Blood Count 10.34 K/uL (4.8-10.8)
[2021-09-14 13:18] LABS: BUN Creatinine Ratio 17.8 (10-20); Calcium 9.4 mg/dl (8.5-10.1); Creatinine Clr Calc Pharmacy 115.1 ml/min; Est GFR (Non-African American) 106.2 ml/min; Potassium 4.5 mmol/L (3.5-5.1)
[2021-09-14] MEDS ORDERED: SODIUM CHLORIDE 0.9% 1000ML 1,000 ML IV ONE (13:48)
[2021-09-14 14:01] LABS: Beta-Hydroxybutyrate 3.99 mg/dl (0.2-2.81)
[2021-09-14] MEDS ORDERED: INSULIN HUMAN REGULAR SC ONE (14:12)
[2021-09-14] MEDS ORDERED: NovoLIN-R INSULIN PER UNIT CHARGE ONE (14:54)
--- NOTE | 2021-09-14 15:15 | History & Physical Report ---
Date of Service September 14, 2021 Assessment & Plan (1) Diabetic foot ulcer with osteomyelitis: Plan: Mr. Tsang is a 26-year-old male with a history of Poorly Controlled Type 1 Diabetes Mellitus (diagnosed in 2018), Diabetic Ulceration of the left great toe, Hypertension, Paroxysmal Atrial Tachycardia, Dyslipidemia, Anxiety, h/o DKA, and MSSA Septicemia who is followed by the [facility] for an ulcer on his left great toe -- he was seen at the wound clinic today. Patient apparently switched to wearing a pair of [place] shoes in recent weeks. He admits to developing a new wound on the left medial great toe. He believes his toes may have been rubbing in the shoes. Patient denies fever or chills. His last hemoglobin A1c noted to be 12.6% on 07/29/2021. He is on MDI and does not check his sugars as regularly as recommended. Nonetheless, he underwent debridement at the wound clinic today, and they suggested come here for further evaluation and treatment of suspected cellulitis and infection. Patient denies any fevers, chills, night sweats, malaise, or myalgias. He does have pain in the great toe from time to time, but he has altered sensation due to his diabetes. He states that occasionally he will get a throbbing sensation in his left great toe the gradually intensifies and then resolves. X-ray of the left great toe 09/14/21 showed: -- localized osteopenia involving the great toe when compared to the remaining toes. There is no evidence for an acute fracture or dislocation. -- However, subchondral lucencies are seen at the IP joint of the great toe on the current study. -- These are suspicious for small erosions. -- While these could relate to degenerative change, the presence of septic arthritis or osteomyelitis cannot be excluded. Recommend the following: -- Admit to Med-Surg with a diagnosis of Left Great Toe Osteomyelitis and Cellulitis of the the same toe. -- Consult Orthopedic Surgery. -- Received IV Vancomycin in the ER. -- Begin IV Cefepime 2 grams every 8 hours. -- Glycemic Pharmacy consult, we discussed the importance of controlling his diabetes which can lessen his diabetic complications. (2) Uncontrolled type 1 diabetes mellitus, with long-term current use of insulin: Plan: Patient is currently on MDI. His last HgbA1c was 12.6% on 07/29/21. -- Glycemic Pharmacy consult. -- Diabetic diet. -- BSG check qAC and HS. (3) Hypertension: Plan: He is moderately hypertensive on admission. -- Continue Losartan 100 mg daily. (4) Dyslipidemia: Plan: Fasting Lipid Panel on 07/29/21 showed a total cholesterol of 306mg/dL, HDL 44 mg/dL, and Triglycerides of 493 mg/dL. LDL could not be calculated. TC:HDL ratio is 7. -- Continue Crestor but recommend increasing it to 40 mg daily. -- Consider adding Repatha if he does not reach goal LDL level. History of Present Illness Chief Complaint: -- Left Great Toe Osteomyelitis. -- Diabetic Ulcer of Left Great Toe. Primary Care Provider: Bhavya Stanley MD Mr. Tsang is a 26-year-old male with a history of Poorly Controlled Type 1 Diabetes Mellitus (diagnosed in 2018), Diabetic Ulceration of the left great toe, Hypertension, Paroxysmal Atrial Tachycardia, Dyslipidemia, Anxiety, h/o DKA, and MSSA Septicemia who is followed by the Wound Clinic for an ulcer on his left great toe -- he was seen at the wound clinic today. Patient apparently switched to wearing a pair of Redwing shoes in recent weeks. He admits to developing a new wound on the left medial great toe. He believes his toes may have been rubbing in the shoes. Patient denies fever or chills. His last hemoglobin A1c noted to be 12.6% on 07/29/2021. He is on MDI and does not check his sugars as regularly as recommended. Nonetheless, he underwent debridement at the wound clinic today, and they suggested come here for further evaluation and treatment of suspected cellulitis and infection. Patient denies any fevers, chills, night sweats, malaise, or myalgias. He does have pain in the great toe from time to time, but he has altered sensation due to his diabetes. He states that occasionally he will get a throbbing sensation in his left great toe the gradually intensifies and then resolves. X-ray of the left great toe 09/14/21 showed: -- localized osteopenia involving the great toe when compared to the remaining toes. There is no evidence for an acute fracture or dislocation. -- However, subchondral lucencies are seen at the IP joint of the great toe on the current study. -- These are suspicious for small erosions. -- While these could relate to degenerative change, the presence of septic arthritis or osteomyelitis cannot be excluded. Allergies Allergy/AdvReac Type Severity Reaction Status Date / Time ceftriaxone [From Rocephin] Allergy Verified 09/14/21 13:26 adhesive AdvReac rash Verified 09/14/21 13:26 hay Allergy Unknown Unknown Uncoded 09/14/21 13:26 Home Medications Medication Instructions Recorded Confirmed Type blood sugar diagnostic (OneTouch #10 ea 09/03/20 09/14/21 History Verio test strips) pen needle, diabetic 32 gauge x #400 ea 09/03/20 09/14/21 Rx " (ReliOn Pen [place]) albuterol sulfate 90 mcg/actuation 2 puff INHALATION Q6H PRN 09/06/21 09/14/21 History aerosol inhaler rosuvastatin 5 mg tablet 5 mg PO QAM 09/06/21 09/14/21 History escitalopram oxalate 10 mg tablet 10 mg PO QDL 09/14/21 09/14/21 History insulin aspart U-100 100 unit/mL 20 unit SUBCUT QID ml 09/14/21 09/14/21 History (3 mL) subcutaneous pen (Novolog Flexpen U-100 Insulin aspart) insulin glargine 100 unit/mL (3 50 unit SUBCUT HS ml 09/14/21 09/14/21 History mL) subcutaneous pen (Basaglar KwikPen U-100 Insulin) losartan 50 mg tablet 100 mg PO QAM 09/14/21 09/14/21 History Past Med/Surg History Medical History Abnormal ejaculation Abscess Osteomyelitis due to secondary diabetes Uncontrolled type 1 diabetes mellitus, with long-term current use of insulin Urachal remnant UTI (urinary tract infection) Surgical History History of tonsillectomy and adenoidectomy Family History Father CHF (congestive heart failure) Diabetes Mother Diabetes Social History (Reviewed 09/14/21 @ 15:24 by ANTONIA Gonzales Smoking Status: Never smoker Tobacco Type: Smokeless Tobacco (Dip or Chew) Hx Alcohol Use: Yes Alcohol type: beer Alcohol Intake Frequency: Monthly or Less Hx Substance Use: No Preferred Language: Turkish Communication Ability: Effective Poultry Processing Supervisor Required: No Beliefs That Will Affect Care: None marital status: marital status details: , live with and son Current Living Situation: Spouse current occupational status: employed 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 Physical Exam Physical Exam: GENERAL: Patient in no acute distress. HEENT: Head is atraumatic, normocephalic. EOM's intact. Facies symmetric. No perioral cyanosis. NECK: No JVD. JVP is not elevated. Carotid upstrokes are + 2 bilaterally. No bruits are noted. CHEST/LUNGS: Clear to auscultation throughout all lung molina. No wheezes, rales, or crackles. CVS: S1 and S2 are regular without obvious murmurs, gallops, or rubs. PMI is nondisplaced. No lifts, heaves, or thrills. No abdominal aortic or renal bruits. ABDOMINAL EXAM: Bowel sounds are present. No masses, organomegaly, or tenderness. EXTREMITIES: No clubbing or cyanosis. No pretibial edema. Intact dorsalis pedis and radial pulses bilaterally. The left great toe nail is absent. Wound base is erythematous with slough and eschar. Wound extends under the nail fold. Moderate amount of serous drainage is present. Tissues surrounding the wound are macerated with erythema. Left second toe woundis with a moderate amount of serous drainage. Tissues surrounding the wound appear macerated. NEUROLOGIC EXAM: Patient is awake, alert, and oriented. Pleasant and cooperative. Answers questions appropriately. Speech is clear. Normal movement in all 4 extremities. Gait pattern was not assessed. Results & Data Results & Data ([facility]) Vital Signs (Past 12 Hours) Vital Signs Temp Pulse Pulse Resp BP BP Pulse Ox 09/14/21 12:42 88 20 137/95 98 09/14/21 10:44 36.1 C L 102 H 16 166/105 H 98 Laboratory Results Laboratory Results - last 24 hr 09/14/21 09/14/21 09/14/21 12:38 12:38 15:05 WBC 10.34 RBC 4.45 L Hgb 13.9 L Hct 39.0 L MCV 87.6 MCH 31.2 MCHC 35.6 RDW Std Deviation 41.5 RDW Coeff of Annie 12.9 Plt Count 496 H MPV 10.0 Immature Gran % (Auto) 0.5 Neut % (Auto) 62.5 Lymph % (Auto) 29.6 [place] % (Auto) 4.5 Eos % (Auto) 2.3 Baso % (Auto) 0.6 Neut # (Auto) 6.46 Lymph # (Auto) 3.06 [place] # (Auto) 0.47 Eos # (Auto) 0.24 Baso # (Auto) 0.06 Immature Gran # (Auto) 0.05 H Sodium 137 Potassium 4.5 Chloride 107 Carbon Dioxide 24 Anion Gap 6.0 BUN 18 Creatinine 0.99 Est Cr Clr Drug Dosing 115.1 Est GFR ( Amer) 123.0 Est GFR (Non-Af Amer) 106.2 BUN/Creatinine Ratio 17.8 Glucose 381 H* Calcium 9.4 Beta-Hydroxybutyric Acd 3.99 H SARS-CoV-2, RNA, NAAT Pending Diagnostic Findings X-RAY Left Great Toe 09/14/21: Bones: Compared to the previous examination, there is localized osteopenia in volving the great toe when compared to the remaining toes. There is no evidence for an acute fracture or dislocation. However, subchondral lucencies are seen at the IP joint of the great toe on the current study. These are suspicious for small erosions. While these could relate to degenerative change, the presence of septic arthritis or osteomyelitis cannot be excluded. No other sites of cortical destruction are identified. There is no lytic or blastic lesion. Joints: There is now moderate narrowing of the first MTP joint. The remaining joint spaces are maintained. The bones are in anatomic alignment. Soft tissues: There is diffuse soft tissue swelling of the great toe with no definite air seen within the soft tissues. There is no radiopaque foreign body. IMPRESSION: -- Localized osteopenia of the great toe with subchondral lucency/erosion is present at the IP joint of the great toe as described above. -- While the findings could relate to osteoarthritis, the presence of septic arthritis or osteomyelitis cannot be excluded. -- There is also diffuse soft tissue swelling of the great toe. Medications Administered Medications blood sugar diagnostic (OneTouch Verio test strips) #10 ea 09/03/20 [History Confirmed 09/14/21] pen needle, diabetic 32 gauge x 5/32" (ReliOn Pen [place]) #400 ea 09/03/20 [Rx Confirmed 09/14/21] albuterol sulfate 90 mcg/actuation aerosol inhaler 2 puff INHALATION Q6H PRN 09/06/21 [History Confirmed 09/14/21] rosuvastatin 5 mg tablet 5 mg PO QAM 09/06/21 [History Confirmed 09/14/21] escitalopram oxalate 10 mg tablet 10 mg PO QDL 09/14/21 [History Confirmed 09/14/21] insulin aspart U-100 100 unit/mL (3 mL) subcutaneous pen (Novolog Flexpen U-100 Insulin aspart) 20 unit SUBCUT QID ml 09/14/21 [History Confirmed 09/14/21] insulin glargine 100 unit/mL (3 mL) subcutaneous pen (Basaglar KwikPen U-100 Insulin) 50 unit SUBCUT HS ml 09/14/21 [History Confirmed 09/14/21] losartan 50 mg tablet 100 mg PO QAM 09/14/21 [History Confirmed 09/14/21] Home Medications Miscellaneous Information (Vancomycin Consult Active) 1 ea N/A UD PRN PRN Reason: Consult Stop: 10/14/21 12:03 Last Admin: 09/14/21 14:52 Dose: 1 ea Documented by: Code Status & VTE Plan Code Status Full Code VTE Prophylaxis Plan VTE Prophylaxis will be ordered: Yes Supervising Physician Co-Signing Physician Notes I personally saw and examined the patient. I verified all yun points and agree with James Nelson PA-C with the following exceptions and/or additions: 26 yo type 1 diabetic O/E WD/WN, left 1st toe erythema to base of toe, loss of nail, no purulence, good cap refill and DP/PT pulses A/P 1st toe OM - consult ortho, cefepime + vancomycin, consider ID consult pending surgery recommendations, recommend offloading shoe Type 1 diabetes - HbA1C 12.6 in July, repeat with AM labs, consult pharmacy for glycemic control PG Care Time/CCT Total # of Minutes Spent Total Time Spent with Patient: Total time spent is greater than 50% in coordination of care (as documented) at patient's floor/unit and/or counseling patient:25 Coding Level of Care Code 06597 Initial Inpt Care Lvl 3 Diagnoses Diabetic foot ulcer with osteomyelitis E11.621; E11.69; L97.509; M86.9 Hypertension I10 Dyslipidemia E78.5 Uncontrolled type 1 diabetes mellitus, with long-term current use of insulin E10.65 Time Spent (min) 45
[2021-09-14] MEDS ORDERED: HYDROCODONE/ACETAMINOPHEN 7.5/325MG TAB PO PRN (17:58)
[2021-09-14] MEDS ORDERED: PHARMACY GLYCEMIC MGMT CONSULT PRN (17:58)
[2021-09-14] MEDS ORDERED: POLYETHYLENE (MIRALAX) 17 GM PACK PO PRN (17:58)
[2021-09-14] MEDS ORDERED: ACETAMINOPHEN 325 MG TAB PO PRN (17:58)
[2021-09-14] MEDS ORDERED: ALBUTEROL HFA 8 GM INHALER INH PRN (17:58)
[2021-09-14] MEDS ORDERED: ZOLPIDEM TARTRATE 5 MG TAB PO PRN (17:58)
[2021-09-14] MEDS ORDERED: ONDANSETRON INJ 2 MG/ML 2 ML VIAL IV PRN (17:58)
[2021-09-14] MEDS ORDERED: ALUMINUM/MAGNESIUM SUSP 30 ML UDC PO PRN (17:58)
[2021-09-14] MEDS ORDERED: GLUCOSE 10 TABS/TUBE PO PRN (18:45)
[2021-09-14] MEDS ORDERED: DEXTROSE 50% 50 ML SYRINGE IV PRN (18:45)
[2021-09-14] MEDS ORDERED: CARBOHYDRATES FOR HYPOGLYCEMIA PO PRN (18:45)
[2021-09-14] MEDS ORDERED: GLUCOSE 40% GEL 15 GM TUBE PO PRN (18:45)
[2021-09-14] MEDS ORDERED: GLUCAGON FOR INJ 1 MG VIAL IM PRN (18:45)
[2021-09-14] MEDS ORDERED: INSULIN GLARGINE SOLOSTAR 100 UNITS/ML 3 ML PEN SQ SCH (19:00)
[2021-09-14] MEDS: INSULIN ASPART PER UNIT SC SCH ×2 (19:34→22:49)
[2021-09-14] MEDS: CEFEPIME 2,000 MG in SYRINGE 0 ML IV SCH (19:37)
[2021-09-14] MEDS: VANCOMYCIN HCL 1,250 MG in SODIUM CHLORIDE 0.9% 250 ML IV SCH (23:58)
[2021-09-15] MEDS: CEFEPIME 2,000 MG in SYRINGE 0 ML IV SCH ×3 (03:02→18:25)
[2021-09-15 08:27] LABS: Basophils # (auto) 0.05 K/uL (0-0.2); Basophils % (auto) 0.5 %; Eosinophils # (auto) 0.37 K/uL (0-0.5); Eosinophils % (auto) 3.4 %; Immature Granulocytes # (auto) 0.04 K/uL (0.00-0.02); Immature Granulocytes % (auto) 0.4 %; Lymphocytes # (auto) 4.39 K/uL (1.2-3.4); Lymphocytes % (auto) 39.9 %; Mean Corpuscular Hemoglobin 30.6 pg (25-34); Mean Corpuscular Hgb Conc 35.1 g/dL (32-36); Mean Corpuscular Volume 87.1 fL (80-100); Mean Platelet Volume 9.9 fL (7.4-10.4); Monocytes % (auto) 8.2 %; Neutrophils # (auto) 5.24 K/uL (1.4-6.5); Neutrophils % (auto) 47.6 %; Platelet Count 477 K/uL (130-400); RDW Standard Deviation 41.5 fL (36.4-46.3); Red Blood Count 4.25 M/uL (4.7-6.1); White Blood Count 10.99 K/uL (4.8-10.8)
[2021-09-15 08:35] LABS: Estimated Average Glucose 280 mg/dl; Hemoglobin A1C 11.4 % (4.5-5.6)
[2021-09-15 08:52] LABS: BUN Creatinine Ratio 20.8 (10-20); Blood Urea Nitrogen 14 mg/dl (7-18); C Reactive Protein 2.15 mg/dl (0-0.29); Carbon Dioxide 23 mmol/L (21-32); Chloride 110 mmol/L (98-107); Creatinine Clr Calc Pharmacy 175.2 ml/min; Est GFR (African American) > 150.0 ml/min; Est GFR (Non-African American) 136.2 ml/min; Glucose 81 mg/dl (70-99); Potassium 3.7 mmol/L (3.5-5.1); Sodium 140 mmol/L (136-145)
[2021-09-15] MEDS ORDERED: ROSUVASTATIN CALCIUM 5 MG TAB PO SCH (09:00)
[2021-09-15] MEDS: ROSUVASTATIN CALCIUM 20 MG TAB PO SCH (09:06)
[2021-09-15] MEDS: LOSARTAN POTASSIUM 50 MG TAB PO SCH (09:07)
[2021-09-15] MEDS: INSULIN ASPART PER UNIT SC SCH ×4 (09:09→20:55)
--- NOTE | 2021-09-15 09:10 | Pharmacy Report ---
Pharmacy Vanc AUC Short Note - Date of Service September 15, 2021 - Assessment & Plan Assessment 26 year old M receiving vancomycin for treatment of diabetic foot infection with possible osteomyelitis. Pertinent microbiologic data includes: L toe culture growing Staph species. Day # 1 of antimicrobial therapy. Plan Vancomycin * AUC/JERALD is the preferred PK/PD target for vancomycin * AUC guided dosing is effective and associated with decreased risk of nephrotox icity compared to traditional trough targets * vancomycin 1250 mg IV q12 is predicted to achieve target AUC/JERALD of 400-600 mg/L.hr and may be associated with a 8 % risk of nephrotoxicity * Trough or random level ordered for: 09/16/21 prior to noon dose Pharmacy will continue to follow and will adjust dose/frequency as necessary. Thank you.
--- NOTE | 2021-09-15 11:46 | Ultrasound Report ---
US ankle/brachial index comp CLINICAL HISTORY: assess flow TECHNIQUE: Real-time grayscale and color and spectral Doppler ultrasound imaging of the bilateral low er extremity arteries was performed. Measurements calculated based on NASCET criteria. COMPARISON: None available at the time of this dictation. FINDINGS: ANKLE/BRACHIAL INDEX (AMRIK): Brachial: Right: 143 mmHg. Left: 141 mmHg. Ankle (dorsalis pedis): Right: 176 mmHg. Left: 165 mmHg. Ankle (posterior tibial): Right: 179 mmHg. Left: 164 mmHg. Ankle/brachial index: Right: 1.25, Left: 1.15. Reference ranges: Normal Ankle/Brachial Index (AMRIK) 1.0-1.4; 0.91-0.99 borderline; < or = 0.9 abnormal (0.7-0.89 mild, 0.51-0.69 moderate, < or = 0.5 severe peripheral arterial disease). Normal Toe/Brachial Index (TBI) > or = 0.6; < 0.6 abnormal (0.34-0.59 mild, 0.12-0.34 moderate, < or = 0.11 severe peripheral arterial disease). IMPRESSION: Normal ankle-brachial indices. ACT 112: Negative or not required by law. Electronically signed by: Que Flynn M.D. 09/15/2021 11:45 AM
[2021-09-15] MEDS ORDERED: GADOBUTROL 65ML VIAL IV ONE (12:33)
--- NOTE | 2021-09-15 12:49 | Hospitalist Progress Note ---
Date of Service September 15, 2021 Assessment & Plan (1) Diabetic ulcer of left great toe: Plan: 26-year-old with adult onset diabetes mellitus type 1 (diagnosed 2018)-- Uncontrolled Initial diabetic foot ulcer noted in 2018. Has been following wound clinic and reports well healed up until 2 weeks ago History of MSSA with concern for osteomyelitis in 2018. IV Rocephin X 6 weeks given at that time in an attempt for limb salvage Currently on cefepime/Vanco empirically Preliminary culture data showing staph species. Continue empiric antibiotics as outlined above until culture data final ESR: 60. CRP: 2.15 Blood cultures obtained. No growth to date X-ray done in the ED shows lucency of the great toe for which osteomyelitis cannot be excluded Will obtain an MRI to help further differentiate AMRIK of the bilateral lower extremities will be obtained to assess flow. Pulses are bounding Consult orthopedics. Suspect may need amputation at this time. Appreciate recommendations Lengthy discussion with patient regarding importance of good glycemic control and tobacco cessation!!! Consult wound nurse. Appreciate recommendations (2) Cellulitis: Plan: Associated cellulitis involving the left great toe. Overall, surrounding erythema seems to have improved Continue antibiotic therapy as outlined above See above as outlined (3) DKA (diabetic ketoacidoses): Plan: Patient presented with a blood sugar of 381 and elevated beta hydroxybutyric acid of 3.99. Despite this, his serum bicarb was normal at 24 and his anion gap is closed. Was treated aggressively in the ED with IV fluids and given IV insulin. Blood sugar subsequently improved to 108. 81 this morning Continue sliding scale for carb and correction dosing along with basal insulin Lengthy discussion with patient regarding the importance of good glycemic control (4) Uncontrolled type 1 diabetes mellitus, with long-term current use of insulin: Plan: Patient used to see endocrinology. 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 He takes Lantus 50 units in the evening but for the most part does not check fasting blood sugars so cannot tell me what they typically run Admits to not treating with analog. Unable to tell me what his sliding scale/carb ratio should be A1c elevated at 11.4 Lengthy discussion with patient regarding the importance of good glycemic control. Not only will he lose limbs but also this puts him at risk for CKD requiring dialysis, vision loss, erectile dysfunction, continued nonhealing w ounds, heart attacks, strokes. I stressed the importance of controlling his blood sugars and not allowing his diabetes to control him. He voices understanding (5) Tobacco abuse: Plan: Lengthy discussion with patient regarding the importance of tobacco cessation and how this will also affect wound healing Plan: Plan of care will be discussed with Dr. Hurtado. Further orders as warranted. Admission and Anticipated Discharge Date Admission Date: September 14, 2021 Subjective Mr. Tsang is a 26-year-old white male with adult onset type 1 diabetes mellituspoorly controlled. He has had an ongoing wound to his left great toe since 2018 when diagnosed with diabetes mellitus. He reports that it had healed up until several weeks ago. In 2018, he did have associated MSSA bacteremia and there was concern for osteomyelitis at that time. Per records, patient completed 6 weeks of IV Rocephin and has since followed up with his orthopedic surgeon. Given his age, limb salvage was the goal. Since then, patient has been following the wound clinic. Reports wound had been well healed up until approximately 2 to 3 weeks ago when he developed increasing breakdown. Was seen by the wound clinic yesterday and there was concern for associated cellulitis which prompted them to send him to the emergency department. There he was found to be afebrile and hemodynamically stable. His white blood cell count was normal at 10.34. Blood sugars were elevated at 3.81 but his anion gap was closed and his serum bicarb was normal. He was treated accordingly with IV insulin (bolus) and subsequent blood sugar was 108. X-ray shows concern for lucency of the great toe which may be consistent with osteomyelitis. He was subsequently hospitalized for further evaluation and care. Patient remains empirically on cefepime and vancomycin. He is afebrile and hemodynamically stable. Preliminary wound culture obtained in the ED showing staph species. Review of Systems Review of Systems: All systems reviewed and are unremarkable except as noted in HPI and below Denies fevers, chills, headache, nasal congestion, sore throat, cough, chest pain, shortness of breath, palpitations, orthopnea, PND, abdominal pain, nausea, vomiting, diarrhea, constipation, dysuria, hematuria, frequency, back pain, joint pain or swelling, easy bruising or bleeding, Physical Exam Physical Exam: General: Resting comfortably in her hospital bed. NAD. HEENT: Head is AT/NC buccal mucosa is moist and pink Neck: No JVD. Negative hepatojugular reflex Cardiac: RRR without M/G/R Lungs: CTA without W/R/R Abdomen: Normoactive X4. Soft and nontender in all quadrants. Extremities: peripheral pulses to the B/L LE intact and symmetrical. Left great toe with ulcer on the lateral surface with central eschar. Minimal drainage. There is also mild breakdown of the medial 2nd toe (adjacent to the great toe). proprioception intact. unable to differentiate sharp from full to the toes/forefoot. Neuro: A&O X4 cranial nerves II through XII are grossly intact no focal neuro deficits Skin: see above Psych: Appropriate affect pleasant and cooperative Results & Data Results & Data ([facility]) Vital Signs (Past 12 Hours) Vital Signs Temp Pulse Resp BP Pulse Ox 09/15/21 08:02 36.4 C L 98 H 16 137/91 95 Laboratory Results 09/15/21 06:52 09/15/21 06:52 Diagnostic Findings Gram Stain Final 09/14/21-2033 Gram Stain Result Moderate Epithelial Cells Rare WBCs Seen Many Gram Positive Cocci Surface Wound Culture Preliminary 09/15/21-1052 Organism 1 Staphylococcus species Quantity Moderate Sens Sensitivities to Follow +MixWound Plus Moderate Counts of Probable Skin [place] PG Care Time/CCT Total # of Minutes Spent Total Time Spent with Patient: Total time spent is greater than 50% in coordination of care (as documented) at patient's floor/unit and/or counseling patient: Coding Level of Care Code 56101 Subseq Hosp Care Lvl 3 Diagnoses Diabetic ulcer of left great toe E11.621; L97.529 Cellulitis L03.90 Site of cellulitis of extremity: toe DKA (diabetic ketoacidoses) E13.10 Diabetes mellitus complication detail: without coma Diabetes mellitus type: other specified (including VASQUEZ) Uncontrolled type 1 diabetes mellitus, with long-term current use of insulin E10.65 Tobacco abuse Z72.0 (1) Cellulitis Site of cellulitis of extremity: toe (2) DKA (diabetic ketoacidoses) Diabetes mellitus complication detail: without coma Diabetes mellitus type: other specified (including VASQUEZ) Qualified Code(s): E13.10 - Other specified diabetes mellitus with ketoacidosis without coma
--- NOTE | 2021-09-15 13:11 | Pharmacy Report ---
Pharmacy Glycemic Short Note 2 - Date of Service September 15, 2021 - Glycemic Short BSG Results (Last 24 hours): 09/14/21 09/14/21 09/14/21 12:38 15:55 19:21 Glucose 381 H* POC Glucose 244 H 190 H 09/14/21 09/14/21 09/15/21 21:54 22:38 06:52 Glucose 81 POC Glucose 70 108 H 09/15/21 09/15/21 08:18 12:55 Glucose POC Glucose 95 142 H OUTPATIENT ANTIDIABETIC REGIMEN: * Lantus 50 units HS * Novolog 20 units AC * per ict educator note from last year --- patient misses many doses per week * HbA1C (09/15/21) = 11.4% ASSESSMENT: * Mr Pyle is a 26 y/o M with a PMH of T1DM who presents with an infection. He is on vancomycin and cefepime. * Patient's BSG on admission was 381 mg/dL - 244-190 mg/dL and overnight was 108 mg/dL. Fasting today is 95 mg/dL. * Patient given "home dose" of Lantus 50 units last night. Will reduce to Lantus 25 units tonight which was the dose the patient was discharged on last visit. * Novolog weight-based stress of 2 for now. PLAN FOR INPATIENT GLYCEMIC CONTROL: * Basal insulin * Lantus 25 units SQ HS * Bolus insulin * NovoLog per scale ACHS or Q6hrs while NPO * Goal Range: Low 110 mg/dL - High 140 mg/dL * Correction Factor: 30 mg/dL/unit * Nutritional / Prandial insulin per carb ratio of 1 unit per 10 grams CHO consumed PLAN FOR DISCHARGE: * TBD
[2021-09-15] MEDS: ESCITALOPRAM OXALATE 10 MG TAB PO SCH (13:22)
[2021-09-15] MEDS: VANCOMYCIN HCL 1,250 MG in SODIUM CHLORIDE 0.9% 250 ML IV SCH ×2 (13:22→23:48)
--- NOTE | 2021-09-15 15:03 | Magnetic Resonance Report ---
MR foot LT wo/w con HISTORY: 26 years-old Male focus: left toe. ? osteo, acute pain and swelling of left great toe with possible osteomyelitis. COMPARISON: Left toe radiographs 09/14/2021 and also 07/16/2018, MRI left foot 04/06/2018. TECHNIQUE: Multiplanar multisequence MRI of the left foot was obtained both with and without the use of 7.8 cc Gadavist. FINDINGS: There is extensive marrow edema throughout the first distal phalanx with areas of decreased T1 signal . Chronic cortical irregularity involves the base of the first distal phalanx. Additionally, there is moderate to marked marrow edema involving the first proximal phalanx with cortical indistinctness in volving the first phalangeal head. Correspondingly, there is area of mildly decreased T1 marrow signa l. There is moderate subcutaneous edema of the great toe with associated enhancement extending into t he nail bed. There is no large joint effusion of the first interphalangeal joint. Marrow signal is ot herwise within normal limits. The imaged flexor and extensor tendons appear intact. The study is jolie on degraded. Mild atrophy of the intrinsic musculature with increased T2 signal, possibly representat palak of myositis versus chronic denervation changes. IMPRESSION: 1. Marrow edema involving the proximal and distal phalanges of the first digit with areas of mildly d ecreased T1 signal, notably within the base of the first distal phalanx. Similar more extensive findi ngs were present on the MRI study from 2018. Findings are suggestive of acute on chronic osteomyeliti s. 2. Cellulitis and paronychia of the first digit without abscess. ACT 112: Negative or not required by law. The above report was generated using voice recognition software. It may contain grammatical, syntax o r spelling errors. Dictated: 09/15/2021 12:58 PM Transcribed: 09/15/2021 1:49 PM Melissa [id number] Luther Electronically signed by: Mustapha Moura M.D. 09/15/2021 3:01 PM
--- NOTE | 2021-09-15 16:20 | Orthopedic Consultation ---
Date of Service September 15, 2021 Assessment & Plan (1) Diabetic ulcer of left great toe: He was seen and examined by Dr. Enciso. Treatment options were discussed and this likely won't do well without amputation of the great toe. At this point, he understands and wants to proceed with amputation. He has some changes of the left 2nd toe and right great toe that he needs to keep a close watch on but no further intervention for those at this time. Dressing applied to the left great toe. NPO at midnight for planned great toe amputation tomorrow. History of Present Illness Reason for Consultation: . Requesting Physician: . Attending Physician: Kristopher Hurtado MD . 26 year old diabetic patient that is approximately 3 years s/p left great toe wound debridement with Dr. Figueroa. He said he developed a wound on the toe about 1-2 weeks ago and began seeing wound clinic for management. He was referred here yesterday due to concerns of infection/cellulitis. He has been started on some antibiotics. ESR/CRP are elevated. He had xray and MRI. He has a some skin changes involving the 2nd toe and also a small spot on the right great toe. Allergies Allergy/AdvReac Type Severity Reaction Status Date / Time ceftriaxone [From Rocephin] Allergy Verified 09/14/21 13:26 adhesive AdvReac rash Verified 09/14/21 13:26 hay Allergy Unknown Unknown Uncoded 09/14/21 13:26 Home Medications Medication Instructions Recorded Confirmed Type blood sugar diagnostic (OneTouch #10 ea 09/03/20 09/14/21 History Verio test strips) pen needle, diabetic 32 gauge x #400 ea 09/03/20 09/14/21 Rx " (ReliOn Pen [place]) albuterol sulfate 90 mcg/actuation 2 puff INHALATION Q6H PRN 09/06/21 09/14/21 History aerosol inhaler rosuvastatin 5 mg tablet 5 mg PO QAM 09/06/21 09/14/21 History escitalopram oxalate 10 mg tablet 10 mg PO QDL 09/14/21 09/14/21 History insulin aspart U-100 100 unit/mL 20 unit SUBCUT QID ml 09/14/21 09/14/21 Histo ry (3 mL) subcutaneous pen (Novolog Flexpen U-100 Insulin aspart) insulin glargine 100 unit/mL (3 50 unit SUBCUT HS ml 09/14/21 09/14/21 History mL) subcutaneous pen (Basaglar KwikPen U-100 Insulin) losartan 50 mg tablet 100 mg PO QAM 09/14/21 09/14/21 History Past Med/Surg History Medical History Abnormal ejaculation Abscess Osteomyelitis due to secondary diabetes Uncontrolled type 1 diabetes mellitus, with long-term current use of insulin Urachal remnant UTI (urinary tract infection) Surgical History History of tonsillectomy and adenoidectomy Family History Father CHF (congestive heart failure) Diabetes Mother Diabetes Social History Smoking Status: Never smoker Tobacco Type: Smokeless Tobacco (Dip or Chew) Hx Alcohol Use: Yes Alcohol type: beer Alcohol Intake Frequency: Monthly or Less Hx Substance Use: No Preferred Language: Occitan Communication Ability: Effective Laser Operator Required: No Beliefs That Will Affect Care: None marital status: marital status details: , live with and son Current Living Situation: Spouse current occupational status: employed 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 Physical Exam .Alert and oriented. No distress. Left foot: obvious swelling, erythema of the great toe. Wound on the lateral and plantar side of the great toe. The nail is removed. There is some purulent drainage from the nail fold. There is some maceration of the 2nd toe as well. Right great toe has a small area of discoloration but no open wounds. Results & Data Results & Data Laboratory Results . Diagnostic Findings .xrays of the left foot show some subchondral changes/erosion at the IP joint of the great toe. MRI shows some marrow edema of the distal and proximal phalanx of the great toe. PG Care Time/CCT Total # of Minutes Spent Total Time Spent with Patient: Total time spent is greater than 50% in coordination of care (as documented) at patient's floor/unit and/or counseling patient: Coding Level of Care Code 90759 Inpt Consult Level 4 Diagnoses Diabetic ulcer of left great toe E11.621; L97.529
--- NOTE | 2021-09-15 16:43 | Anesthesiology Consultation ---
Date of Service September 15, 2021 Assessment & Plan (1) Encounter for pre-operative examination: Chart Review Chart Review: Acceptable Risk for Surgery History Surgery Operation Date: 09/16/21 07:00 Proposed Procedures p Left Great Toe Amputation - Dominic Enciso MD Height/Weight Height: 5 ft 9 in Weight: 77.7 kg Allergies Allergy/AdvReac Type Severity Reaction Status Date / Time ceftriaxone [From Rocephin] Allergy Verified 09/14/21 13:26 adhesive AdvReac rash Verified 09/14/21 13:26 hay Allergy Unknown Unknown Uncoded 09/14/21 13:26 Medications Home Medications Medication Instructions Recorded Confirmed Last Taken blood sugar diagnostic (OneTouch #10 ea 09/03/20 09/14/21 Unknown Verio test strips) pen needle, diabetic 32 gauge x #400 ea 09/03/20 09/14/21 Unknown " (ReliOn Pen [place]) albuterol sulfate 90 mcg/actuation 2 puff INHALATION Q6H PRN 09/06/21 09/14/21 09/14/21 aerosol inhaler rosuvastatin 5 mg tablet 5 mg PO QAM 09/06/21 09/14/21 09/13/21 escitalopram oxalate 10 mg tablet 10 mg PO QDL 09/14/21 09/14/21 09/13/21 insulin aspart U-100 100 unit/mL 20 unit SUBCUT QID ml 09/14/21 09/14/21 09/13/21 (3 mL) subcutaneous pen (Novolog Flexpen U-100 Insulin aspart) insulin glargine 100 unit/mL (3 50 unit SUBCUT HS ml 09/14/21 09/14/21 09/13/21 mL) subcutaneous pen (Basaglar KwikPen U-100 Insulin) losartan 50 mg tablet 100 mg PO QAM 09/14/21 09/14/21 09/13/21 Active Medications Generic Name Dose Route Start Last Admin Trade Name Freq PRN Reason Stop Dose Admin Escitalopram Oxalate 10 mg 09/15/21 11:30 09/15/21 13:22 Escitalopram Oxalate 10 Mg Tab PO 10/15/21 11:29 10 mg QDL SHELLEY Administration Cefepime HCl 2,000 mg/ Syringe 20 mls @ 5 mls/min 09/14/21 19:00 09/15/21 13:11 IV 10/26/21 18:59 5 mls/min Q8H SHELLEY Administration Protocol Vancomycin HCl 1,250 mg/ 275 mls @ 200 mls/hr 09/15/21 00:00 09/15/21 15:05 Sodium Chloride IV 10/27/21 00:00 Infused Q12H SHELLEY Infusion Insulin Aspart 0 units 09/14/21 19:00 09/15/21 13:23 Insulin Aspart Per Unit SC 10/14/21 18:59 4 units ACHS SHELLEY Administration Losartan Potassium 100 mg 09/15/21 09:00 09/15/21 09:07 Losartan Potassium 50 Mg Tab PO 10/15/21 08:59 100 mg QAM SHELLEY Administration Rosuvastatin Calcium 40 mg 09/15/21 09:00 09/15/21 09:06 Rosuvastatin Calcium 20 Mg Tab PO 10/15/21 08:59 40 mg QAM SHELLEY Administration Past Medical History Medical History Abnormal ejaculation Abscess Osteomyelitis due to secondary diabetes Uncontrolled type 1 diabetes mellitus, with long-term current use of insulin Urachal remnant UTI (urinary tract infection) Past Family History Family History Father CHF (congestive heart failure) Diabetes Mother Diabetes Past Surgical History Surgical History History of tonsillectomy and adenoidectomy Social History Smoking Status: Never smoker Hx Alcohol Use: Yes Alcohol type: beer alcohol intake frequency: holidays/special occasions only Hx Substance Use: No substance use type: does not use Physical Exam Vital Signs Last Vital Signs Temp 36.8 C 09/15/21 15:40 Pulse 99 H 09/15/21 15:40 Resp 16 09/15/21 15:40 BP 137/94 09/15/21 15:40 Pulse Ox 97 09/15/21 15:40 Testing Laboratory Results 09/15/21 06:52 09/15/21 06:52 Hemoglobin A1c 11.4 % (4.5-5.6) H 09/15/21 06:52 09/14/21 12:38 Aerobic Blood Culture - Preliminary Blood No growth in Aerobic bottle after 24 hours. Anaerobic Blood Culture - Preliminary No growth in Anaerobic bottle after 24 hours. 09/14/21 12:31 Aerobic Blood Culture - Preliminary Blood No growth in Aerobic bottle after 24 hours. Anaerobic Blood Culture - Preliminary No growth in Anaerobic bottle after 24 hours. 09/15/21 09/15/21 12:55 08:18 POC Glucose 142 H 95 09/14 covid test negative
[2021-09-15] MEDS ORDERED: INSULIN GLARGINE SOLOSTAR 100 UNITS/ML 3 ML PEN SQ SCH (21:00)
[2021-09-16] MEDS: INSULIN ASPART PER UNIT SC SCH ×3 (01:08→11:41)
[2021-09-16] MEDS: CEFEPIME 2,000 MG in SYRINGE 0 ML IV SCH ×2 (03:13→11:39)
[2021-09-16] MEDS ORDERED: ATROPINE SULFATE 0.1 MG/ML 10ML SYR IV PRN (06:39)
[2021-09-16] MEDS ORDERED: ePHEDrine sulfate 50 MG/ML AMP IV PRN (06:39)
[2021-09-16] MEDS ORDERED: ONDANSETRON INJ 2 MG/ML 2 ML VIAL IV PRN (06:39)
[2021-09-16] MEDS ORDERED: fentaNYL citrate 100 MCG/2 ML VIAL IV PRN (06:39)
[2021-09-16] MEDS ORDERED: PROPOFOL IV EMULSION 10 MG/ML 20 ML VIAL IV ONE (06:48)
[2021-09-16] MEDS ORDERED: ONDANSETRON INJ 2 MG/ML 2 ML VIAL ONE (06:48)
[2021-09-16] MEDS ORDERED: LIDOCAINE 2% 2 ML VIAL/AMP(20MG/ML) INFIL ONE (06:48)
[2021-09-16] MEDS ORDERED: MIDAZOLAM HCL 1 MG/ML 2ML VIAL ONE (06:48)
[2021-09-16] MEDS ORDERED: fentaNYL citrate 100 MCG/2 ML VIAL ONE (06:49)
--- NOTE | 2021-09-16 06:59 | History & Physical Bridge Note ---
Date of Service September 16, 2021 History & Physical Bridge Note I have examined the patient, reviewed the History & Physical and in the interval since the performance of the History & Physical I have noted the following changes of clinical significance: no changes noted
[2021-09-16] MEDS ORDERED: LIDOCAINE 2% LOCAL 50 ML VIAL ONE (07:04)
[2021-09-16] MEDS ORDERED: BUPIVACAINE 0.5 % 5 MG/1 ML MPF 30ML VIAL ONE (07:04)
--- NOTE | 2021-09-16 07:49 | Operative Report ---
Post Operative Report Pre & Post Diagnosis Operation Date: 09/16/21 07:00 Pre-Op Diagnosis: Diabetic ulcer left great toe with osteomyelitis Post-Op Diagnosis: Diabetic ulcer left great toe with osteomyelitis I identified the patient and participated in the time-out.: Yes Procedure Operation Date: 09/16/21 07:00 Actual Procedures p Left Great Toe Amputation(Left) - Dominic Enciso MD Surgeon Dominic Enciso MD Household Manager Jairo Brown PA-C Estimated Blood Loss 5 Findings Consistent with Post-Op Diagnosis Specimens Left great toe sent for pathology Anesthesia Type Local Complications none Disposition Accompanied Patient To Recovery: No Indications Patient is a 26-year-old fairly poorly controlled diabetic who has had a several history of some foot problems. Has been treated conservatively over the years. Over the past several weeks has developed pain swelling and purulent drainage at his left great toe. He was treated at wound clinic where things continue to progress. He had x-rays which suggested osteomyelitis and confirmed by MRI. He said gross pus coming out of his great toe. Patient indicated for great toe amputation. Description of Procedure The patient was taken the operating, identified, placed on the operating table supine position brought contractors were properly padded. IV antibiotics were had been provided scheduled preoperatively. A left ankle tourniquet was placed. The left foot was then cleaned with alcohol. Some IV sedation was provided. A local anesthetic was implemented at the base of the great toe using about 30 cc of a 50-50 combination of half percent Marcaine plain and 2% lidocaine. The foot was then scrubbed with Hibiclens and then prepped with ChloraPrep and draped in usual sterile fashion. Left foot was elevated exsanguinated with use of an Esmarch and turns placed at 300 mmHg. A fishmouth type incision was made at the base of the great toe and then extended over the medial aspect of the metatarsal and a racquet type fashion. Sharp dissection is carried through subcutaneous tissue directly down to the bone. The bone was skeletonized back to the MTP joint and then disarticulated and removed. This was sent for pathology. The flexor and extensor tendons were identified, traction was applied, they were cut and allowed to retract. The wound was then irrigated. I then soaked the wound with a Hibiclens for about 3 minutes and then irrigated extensively again. The tourniquet was let down for turn time 7 minutes. Hemostasis assured use electrocautery. The skin was then closed with a 3-0 nylon suture in a simple fashion. The foot was then cleaned and dried a sterile dressing was Xeroform, 4 x 4's, sterile cast padding, Coban wrap, and a postop shoe were applied. Patient then transferred to the recovery room in stable condition. Patient tolerated procedure well and there were no complications. Jairo Brown, my physician patient care nursing assistant, was present for the entire procedure. His assistance was required for proper patient positioning, prepping and draping, surgical exposure, retraction, perform the technical details the operation, closure of the wound, placement of sterile bandage and postoperative shoe. I attest to the content of the Intraoperative Record and any orders documented therein. Any exceptions are noted below.
--- NOTE | 2021-09-16 08:37 | Anesthesiology Progress Note ---
Date of Service September 16, 2021 Anesthesia Post Procedure Vital Signs Vital Signs: Temp Pulse Pulse Pulse Resp BP BP 09/16/21 08:00 81 16 121/86 09/16/21 07:51 96.8 F L 84 16 115/81 09/16/21 05:55 97.9 F 93 H 18 141/106 H 09/15/21 22:39 98.6 F 103 H 18 151/104 H 151/100 H 09/15/21 15:40 98.2 F 99 H 16 137/94 Pulse Ox 09/16/21 08:00 98 09/16/21 07:51 98 09/16/21 05:55 98 09/15/21 22:39 96 09/15/21 15:40 97 Transfer of Care Handoff Completed per policy Notes Mental Status: alert / awake / arousable and participated in evaluation Patient Amnestic to Procedure: Yes Nausea / Vomiting: adequately controlled Pain: adequately controlled Airway Patency, RR, SpO2: stable & adequate BP & HR: stable & adequate Hydration State: stable & adequate Anesthetic Complications: no major complications apparent and Pt Satisfied with anesthetic care
[2021-09-16] MEDS: LOSARTAN POTASSIUM 50 MG TAB PO SCH (10:17)
[2021-09-16] MEDS: ROSUVASTATIN CALCIUM 20 MG TAB PO SCH (10:17)
[2021-09-16 11:18] LABS: Basophils # (auto) 0.05 K/uL (0-0.2); Basophils % (auto) 0.4 %; Eosinophils # (auto) 0.18 K/uL (0-0.5); Eosinophils % (auto) 1.5 %; Hematocrit (blood only) 41.9 % (42-52); Immature Granulocytes # (auto) 0.08 K/uL (0.00-0.02); Immature Granulocytes % (auto) 0.7 %; Lymphocytes # (auto) 3.53 K/uL (1.2-3.4); Lymphocytes % (auto) 29.7 %; Mean Corpuscular Hemoglobin 31.2 pg (25-34); Mean Corpuscular Hgb Conc 35.8 g/dL (32-36); Mean Corpuscular Volume 87.1 fL (80-100); Mean Platelet Volume 9.5 fL (7.4-10.4); Monocytes # (auto) 0.77 K/uL (0.11-0.59); Monocytes % (auto) 6.5 %; Neutrophils # (auto) 7.28 K/uL (1.4-6.5); Neutrophils % (auto) 61.2 %; Platelet Count 499 K/uL (130-400); RDW Standard Deviation 41.9 fL (36.4-46.3); Red Blood Count 4.81 M/uL (4.7-6.1); White Blood Count 11.89 K/uL (4.8-10.8)
[2021-09-16] MEDS ORDERED: VANCOMYCIN TROUGH ONE (11:30)
[2021-09-16] MEDS: ESCITALOPRAM OXALATE 10 MG TAB PO SCH (11:35)
[2021-09-16 11:47] LABS: Albumin Level 2.5 gm/dl (3.4-5.0); BUN Creatinine Ratio 16.9 (10-20); Calcium 9.6 mg/dl (8.5-10.1); Est GFR (African American) 146.4 ml/min; Est GFR (Non-African American) 126.3 ml/min; Magnesium 1.9 mg/dl (1.8-2.4); Potassium 4.2 mmol/L (3.5-5.1)
[2021-09-16 11:50] LABS: Albumin Globulin Ratio 0.6 (0.9-2); Bilirubin,Total 0.3 mg/dl (0.2-1); Globulin 4.5 gm/dl (2.5-4.0)
[2021-09-16] MEDS: VANCOMYCIN HCL 1,250 MG in SODIUM CHLORIDE 0.9% 250 ML IV SCH (11:57)
--- NOTE | 2021-09-16 12:05 | Pharmacy Report ---
Pharmacy Glycemic Short Note 2 - Date of Service September 16, 2021 - Glycemic Short BSG Results (Last 24 hours): 09/15/21 09/15/21 09/15/21 12:55 17:14 20:41 Glucose POC Glucose 142 H 165 H 210 H 09/16/21 09/16/21 09/16/21 05:54 07:54 11:06 Glucose 229 H POC Glucose 162 H 146 H 09/16/21 11:31 Glucose POC Glucose 250 H OUTPATIENT ANTIDIABETIC REGIMEN: * Lantus 50 units HS * Novolog 20 units AC * per in service educator note from last year --- patient misses many doses per week * HbA1C (09/15/21) = 11.4% ASSESSMENT: 09/16/21 * Patient's BSGs yesterday were [phone] mg/dL and fasting today prior to surgery was 162 mg/dL. * Patient received 43 units of insulin yesterday (25 units of Lantus + 18 units of bolus). * Lunch BSG elevated because patient had received bowl of cereal prior to check. * Continue Lantus as fasting improved. * Tighten Novolog since patient's BSGs increased yesterday. Background * Mr Lashanda is a 26 y/o M with a PMH of T1DM who presents with an infection. He is on vancomycin and cefepime. * Patient's BSG on admission was 381 mg/dL - 244-190 mg/dL and overnight was 108 mg/dL. Fasting today is 95 mg/dL. * Patient given "home dose" of Lantus 50 units last night. Will reduce to Lantus 25 units tonight which was the dose the patient was discharged on last visit. * Novolog weight-based stress of 2 for now. PLAN FOR INPATIENT GLYCEMIC CONTROL: * Basal insulin * Lantus 25 units SQ HS * Bolus insulin * NovoLog per scale ACHS or Q6hrs while NPO * Goal Range: Low 110 mg/dL - High 140 mg/dL * Correction Factor: 25 mg/dL/unit * Nutritional / Prandial insulin per carb ratio of 1 unit per 7 grams CHO consumed PLAN FOR DISCHARGE: * TBD
[2021-09-16] MEDS ORDERED: Nursing to Pharmacy Communication SCH (12:15)
[2021-09-16] MEDS ORDERED: ceFAZolin 2000MG 2,000 MG/15 ML SYR IV SCH (16:00)
[2021-09-16] MEDS ORDERED: INSULIN ASPART PER UNIT SC SCH (16:30)
--- NOTE | 2021-09-16 16:55 | Discharge Summary ---
Date of Service September 16, 2021 Admission HPI Per Admitting Provider Mr. Tsang is a 26-year-old male with a history of Poorly Controlled Type 1 Diabetes Mellitus (diagnosed in 2018), Diabetic Ulceration of the left great toe, Hypertension, Paroxysmal Atrial Tachycardia, Dyslipidemia, Anxiety, h/o DKA, and MSSA Septicemia who is followed by the [facility]ound [facility] for an ulcer on his left great toe -- he was seen at the wound clinic today. Patient apparently switched to wearing a pair of [employer] shoes in recent weeks. He admits to developing a new wound on the left medial great toe. He believes his toes may have been rubbing in the shoes. Patient denies fever or chills. His last hemoglobin A1c noted to be 12.6% on 07/29/2021. He is on MDI and does not check his sugars as regularly as recommended. Nonetheless, he underwent debridement at the wound clinic today, and they suggested come here for further evaluation and treatment of suspected cellulitis and infection. Patient denies any fevers, chills, night sweats, malaise, or myalgias. He does have pain in the great toe from time to time, but he has altered sensation due to his diabetes. He states that occasionally he will get a throbbing sensation in his left great toe the gradually intensifies and then resolves. X-ray of the left great toe 09/14/21 showed: -- localized osteopenia involving the great toe when compared to the remaining toes. There is no evidence for an acute fracture or dislocation. -- However, subchondral lucencies are seen at the IP joint of the great toe on the current study. -- These are suspicious for small erosions. -- While these could relate to degenerative change, the presence of septic arthritis or osteomyelitis cannot be excluded. Principal Diagnosis 1. Diabetic foot ulcer of left great toeMSSA 2. Osteomyelitis of left great toes/p amputation 3. Hyperglycemia in the setting of uncontrolled diabetes mellitus 4. Chronic tobacco abuse Discharge Exam General: Resting comfortably in his hospital bed. Does not appear ill or toxic. NAD. HEENT: Head is AT/NC buccal mucosa is moist and pink Neck: No JVD. Negative hepatojugular reflex Cardiac: RRR with 1/6 SONALI Lungs: CTA without W/R/R Abdomen: Normoactive X4. Soft and nontender in all quadrants. Extremities: Left lower extremity in a walking boot with toes exposed. Surgical bandage in place. Dry and intact. Neuro: A&O X4 cranial nerves II through XII are grossly intact no focal neuro deficits Skin: See above Psych: Appropriate affect pleasant and cooperative Discharge Data Allergies Allergy/AdvReac Type Severity Reaction Status Date / Time ceftriaxone [From Rocephin] Allergy Verified 09/14/21 13:26 adhesive AdvReac rash Verified 09/14/21 13:26 hay Allergy Unknown Unknown Uncoded 09/14/21 13:26 Consultations 09/14/21 15:02 ED Decision to Admit Stat 09/15/21 16:20 Consult Orthopedic Surgery Routine Assessment & Plan (1) Diabetic ulcer of left great toe: He was seen and examined by Dr. Enciso. Treatment options were discussed and this likely won't do well without amputation of the great toe. At this point, he understands and wants to proceed with amputation. He has some changes of the left 2nd toe and right great toe that he needs to keep a close watch on but no further intervention for those at this time. Dressing applied to the left great toe. NPO at midnight for planned great toe amputation tomorrow. Procedures Performed Operation Date: 09/16/21 07:00 Actual Procedures p Left Great Toe Amputation(Left) - Dominic Enciso MD Ordered Studies 09/15/21 09:48 X-ray of the left foot: IMPRESSION: Localized osteopenia of the great toe with subchondral lucency/erosion is present at the IP joint of the great toe as described above. While the findings could relate to osteoarthritis, the presence of septic arthritis or osteomyelitis cannot be excluded. There is also diffuse soft tissue swelling of the great toe. MR foot LT wo/w con Routine IMPRESSION: 1. Marrow edema involving the proximal and distal phalanges of the first digit with areas of mildly decreased T1 signal, notably within the base of the first distal phalanx. Similar more extensive findings were present on the MRI study from 2018. Findings are suggestive of acute on chronic osteomyelitis. 2. Cellulitis and paronychia of the first digit without abscess. 09/15/21 11:00 US ankle/brachial index comp Routine FINDINGS: ANKLE/BRACHIAL INDEX (AMRIK): Brachial: Right: 143 mmHg. Left: 141 mmHg. Ankle (dorsalis pedis): Right: 176 mmHg. Left: 165 mmHg. Ankle (posterior tibial): Right: 179 mmHg. Left: 164 mmHg. Ankle/brachial index: Right: 1.25, Left: 1.15. Reference ranges: Normal Ankle/Brachial Index (AMRIK) 1.0-1.4; 0.91-0.99 borderline; < or = 0.9 abnormal (0.7-0.89 mild, 0.51-0.69 moderate, < or = 0.5 severe peripheral arterial disease). Normal Toe/Brachial Index (TBI) > or = 0.6; < 0.6 abnormal (0.34-0.59 mild, 0.12-0.34 moderate, < or = 0.11 severe peripheral arterial disease). IMPRESSION: Normal ankle-brachial indices. Hospital Course (1) Diabetic ulcer of left great toe: 26-year-old with adult onset diabetes mellitus type 1 (diagnosed 2018)--Uncontrolled Initial diabetic foot ulcer noted in 2018. Has been following wound clinic and reports well healed up until 2 weeks ago History of MSSA with concern for osteomyelitis in 2018. IV Rocephin X 6 weeks given at that time in an attempt for limb salvage Initially on cefepime/Vanco empirically ESR: 60. CRP: 2.15 Blood cultures obtained. No growth to date X-ray done in the ED shows lucency of the great toe for which osteomyelitis cannot be excluded MRI confirms osteomyelitis Pulses are bounding but AMRIK obtained showing no evidence of decreased flow Orthopedics consulted. Appreciate recommendations. Patient is s/p amputation of the left great toe Lengthy discussion with patient regarding importance of good glycemic control and tobacco cessation!!! Wound care on board Wound culture showing MSSA With review of culture data, Ancef would be treatment of choice. Patient has a reported history to ceftriaxone listed but when discussed this, patient was treated with Rocephin X 6 weeks in 2018. I did have case management reach out to chart well and patient did not have any adverse reactions to the antibiotic at that time. When further discussed with the patient, he reported that he "had a rash around the bandage of his PICC line". I explained that this was likely an adhesive tape allergy. He was given 1 dose of Ancef today and tolerated this without any issues. Case management has been on board and has set up for home IV antibiotics. Patient will complete IV antibiotic therapy on September 30. Would recommend trending labs including a BMP, CBC, ESR, CRP (weekly X 2 weeks and then per family physician) Midline was placed for administration of 2 weeks of IV antibioticswould remove following completion of IV antibiotics Patient needs to follow-up with the wound clinic and orthopedic surgeon next week Should follow-up with PCP within 7 to 10 days (2) Cellulitis: Associated cellulitis involving the left great toe. Overall, surrounding erythema seems to have improved Continue antibiotic therapy as outlined above See above as outlined (3) DKA (diabetic ketoacidoses): Patient presented with a blood sugar of 381 and elevated beta hydroxybutyric acid of 3.99. Despite this, his serum bicarb was normal at 24 and his anion gap was closed. Was treated aggressively in the ED with IV fluids and given IV insulin. Blood sugar subsequently improved to 108. 81 yesterday morning and 108 this morning Lengthy discussion with patient regarding the importance of good glycemic control and risks of uncontrolled diabetes mellitus. He is only 26 and unfortunately had an amputation as a result of his uncontrolled diabetes. I tried to stress the importance and severity of this issue Patient admits that he is noncompliant with his insulin. When placed back on his routine regimen, his blood sugars are now controlled (4) Uncontrolled type 1 diabetes mellitus, with long-term current use of insulin: Patient used to see endocrinology. 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 He takes Lantus 50 units in the evening but for the most part does not check fasting blood sugars so cannot tell me what they typically run Admits to not treating with analog. A1c elevated at 11.4 Lengthy discussion with patient regarding the importance of good glycemic control. Not only will he lose limbs but also this puts him at risk for CKD requiring dialysis, vision loss, erectile dysfunction, continued nonhealing wounds, heart attacks, strokes. I stressed the importance of controlling his blood sugars and not allowing his diabetes to control him. He voices understanding Would advise he follow-up with endocrinology to discuss transition to insulin pump that the very least he needs to be compliant with his Lantus/log regimen. Follow-up with PCP within 7 to 10 days (5) Tobacco abuse: Lengthy discussion with patient regarding the importance of tobacco cessation and how this will also affect wound healing Plan of care discussed with Dr. Hurtado. Further orders as warranted. Home Health Attestation I certify that this patient is under my care and that I, or a physicians press assistant working with me, had a face to-face encounter that meets the home health [id number] encounter requirements with this patient. The encounter with the patient was in whole, or in part, for the following medical condition, which is the primary reason for home health care (list medical condition): RN; RADHA arizmendi I certify that, based on my findings, the following services are medically necessary home health services: My clinical findings support the need for the above services because: Skilled Nsg Assessment Skilled Nsg Assessment Surgical Incision / Wound Skilled Nsg Instruction New Medications Weekly Labs Further, I certify that my clinical findings support that this patient is homebound (i.e. absences from home require considerable and taxing effort and are for medical reasons or [employer] services or infrequently or of short duration when for other reasons) because: Certification for Home Health Services: Based on the above findings, I certify that this patient is confined to the home and needs intermittent [facility] care, physical therapy and/or speech therapy or continues to need occupational therapy. The patient is under my care, and I have initiated the establishment of the plan of care. This patient will be followed by a physician who will periodically review the plan of care. Total Time Total Time Spent Total Time Spent (In Minutes): 60 minutes including time spent with the patient, coordination of care, preparation of documentation, education with the patient and discussion with attending. Discharge Plan Discharge Items Patient Disposition: Home - Home Health Services Reason For Visit: WOUND CARE CLINIC SENT,TOE INFECTION Discharge Diagnosis: 1. Osteomyelitis left great toe (status post amputation) 2. wound left toe (MSSA)- s/p amputation 3. Hyperglycemia (uncontrolled Diabetes) Activity: As commented below Activity Comment: wear walking boot. elevated left leg. ambulate as tolerated Non-emergency contact: Primary Care Provider and Surgeon Call non-emergency contact if: you have any medication questions and your temperature is above 101 Follow-up/Referrals: Diane Rodriguez DO, FACEP [Physician] - Bhavya Stanley MD [Primary Care Provider] - Dominic Enciso MD [Physician] - Diet: Carb Count or DM1 Addtl Attending Provider Instructions: You were hospitalized with an infection of the left great toe that has spread to the bone Given prior history of similar infection and failing IV antibiotic therapy, amputation was recommended to completely eradicate the infection --Ancef 2 g IV twice daily X 2 weeks. Last dose to infuse on 09/30. Following infusion, midline can be removed by visiting nurses Toe was amputated Despite removal of infected toe, it is advised that you remain on IV antibiotic therapy X 2 weeks to help reduce risk of recurrence You will have repeat blood work weekly X 2 weeks and then at discretion of PCP You need to keep walking boot in place and call with the wound clinic to follow-up In addition, follow-up with orthopedics As discussed, it is imperative that you take your insulin as prescribed. Uncontrolled diabetes along with your underlying tobacco abuse is the leading risk factors to these nonhealing wounds. As discussed, uncontrolled diabetes will lead to further amputations, renal failure and dialysis, blindness, heart attacks, strokes, etc. It is important that you control your diabetes and not allow your diabetes to control you as discussed. Make sure you are taking your Lantus in addition to NovoLog. I encourage that you follow-up with your senior technical writer and move forward with insulin pump as planned in the past. You need to stop using tobacco products as this causes spasm of the vessel and further decreases the ability for your wounds to heal Follow-up with your PCP within 7 to 10 days Return to the ED for any new or worsening symptoms Pending Studies at Discharge: No Stand-Alone Forms: [facility], Smoking Cessation Medications and DC Order Prescriptions: New hydrocodone-acetaminophen 5-325 mg tablet 1 tab PO Q6H PRN (Reason: pain) Qty: 36 RF: 0 cefazolin in dextrose (iso-os) 1 gram/50 mL piggyback 100 ml IV Q12H 14 Days RF: 0 Continued rosuvastatin 5 mg tablet 5 mg PO QAM RF: 0 albuterol sulfate 90 mcg/actuation HFA aerosol inhaler 2 puff inhalation Q6H PRN (Reason: Shortness Of Breath) RF: 0 (DME) pen needle, diabetic [ReliOn Pen [place]son] 32 gauge x 5/32" needle See Rx Instructions .ROUTE .MEDSUPPLY Qty: 400 RF: 3 (DME) OneTouch Verio test strips Strip See Rx Instructions .ROUTE .MEDSUPPLY Qty: 10 RF: 0 insulin aspart U-100 [Novolog Flexpen U-100 Insulin] 100 unit/mL (3 mL) insulin pen 20 unit SUBCUT QID RF: 0 Basaglsylvai OdomPen U-100 Insulin 100 unit/mL (3 mL) insulin pen 50 unit subcut HS RF: 0 escitalopram oxalate 10 mg tablet 10 mg PO QDL RF: 0 losartan 50 mg tablet 100 mg PO QAM RF: 0 Discharge Orders: Discharge Order (Routine); Ordered 09/16/21 Ordered By: Rika Gil Admission Data Admit Date/Time: 09/14/21 15:04 Attending Provider: Kristopher Hurtado Admit Provider: Regino Madsen Primary Care Provider: Bhavya Stanley Other Providers: Kristopher Hurtado ; Edvin Goodwin ; Damaris Umaña ; Meme Castro ; Harshal Chapman ; Rika Tiwari ; Reggie Gonzalez ; Yue Ricks ; Dominic Enciso ; Italo Brown ; Vince Sol ; Vince Figueroa ; [facility] Coding Level of Care Code D/C DAY MANAGEMENT >30 MINS Diagnoses Diabetic ulcer of left great toe E11.621; L97.529 Cellulitis L03.90 Site of cellulitis of extremity: toe DKA (diabetic ketoacidoses) E13.10 Diabetes mellitus complication detail: without coma Diabetes mellitus type: other specified (including VASQUEZ) Uncontrolled type 1 diabetes mellitus, with long-term current use of insulin E10.65 Tobacco abuse Z72.0
== END 2021-09-16 18:19 | disposition home health service (06) | DRG 617 ==
LOC: ED 10:35 → SUATTDRO 15:04 → EDINP 15:04 → 3N 18:15